=== PATIENT | male | born 1945 | race African-American/Black ===

== ENCOUNTER 2016-07-31 18:37 | Inpatient (IN) | payer MEDICARE, MEDICAID ==
[~2016-07-31] VITALS: Ht 170.2 cm; Wt 155.1 kg
[~2016-07-31 18:37] MED LIST: ALLOPURINOL300 M1 ORAL; AMOXICILLI200 MG/5 M PO; ASPIR 8181 MG ORAL; ATORVASTATIN CA40 MG ORAL; DUONEB 0.5-3(2.53 ML HHN; DuoNeb 0.5-3(2.5)mg/3ml neb ONE; FUROSEMIDE80 M1 ORAL; HEPARIN SO5000 UNIT2 SUBQ; LISINOPRIL20 MG ORAL; METHADONE HCL10 MG ORAL; METHADONE10 MG/1 M1 PO; MUCINEX600 MG ORAL; NORCO 5-325 TA1 EACH ORAL; OMEPRAZOLE20 M3 ORAL; PREDNISONE20 MG ORAL; PROTONIX40 M1 IVP; SYMBICORT 1601 PUFFS INH
[2016-07-31] MEDS ORDERED: Ipratropium 0.02% Inh Soln 2.5ml UD HHN ONE (19:00)
[2016-07-31] MEDS ORDERED: Albuterol ud Inhalation HHN ONE (19:00)
--- NOTE | 2016-07-31 19:26 | Emergency Room Report ---
History of Present Illness General Chief Complaint: Upper Respiratory Illness Source: Patient Present Illness HPI Patient reports that he was at the [place] last week Patient was given a five-day course of antibiotics and bleeding treatment Patient has continued to decompensate and feels worse increasingly short of breath Denies any chest pain at this time denies any pleurisy Patient reports having a history of COPD Denies any active smoking Denies any fevers or chills Denies any recent travel He has had increased swelling in both legs Allergies: Coded Allergies: No Known Allergies (Verified Allergy, Unknown, 06/01/07) Patient History Past Medical History: see triage record Pertinent Family History: none Reviewed Nursing Documentation: PMH: Agreed, PSxH: Agreed Nursing Documentation-PMH Past Medical History: No History, Except For Hx Hypertension: Yes Hx Pacemaker: No Hx Asthma: Yes Hx COPD: Yes Hx Diabetes: Yes Hx Cancer: No Hx Gastrointestinal Problems: No Hx Dialysis: No Hx Neurological Problems: No Hx Cerebrovascular Accident: Yes - 2007 Hx Seizures: No Review of Systems All Other Systems: negative except mentioned in HPI Physical Exam Vital Signs Date Time Temp Pulse Resp B/P Pulse Ox O2 Delivery O2 Flow Rate FiO2 07/31/16 18:46 98.2 52 16 122/60 96 Room Air Sp02 EP Interpretation: reviewed, normal General Appearance: mild distress - Appears tachypneic and short of breath Head: normocephalic, atraumatic Eyes: bilateral eye EOMI, bilateral eye PERRL ENT: normal pharynx, no angioedema Neck: full range of motion, supple, thyroid normal Respiratory: crackles - And wheezing diffusely no obvious retractions however Cardiovascular #1: regular rate, rhythm, no gallop, no JVD Gastrointestinal: non tender, soft Genitourinary: no CVA tenderness Musculoskeletal: normal inspection Neurologic: alert, oriented x3, responsive Skin: other - Two out of four pitting edema bilateral lower extremity Medical Decision Making Diagnostic Impression: Primary Impression: COPD exacerbation ER Course Patient is a fairly complex patient with multiple differential to consideration including but not limited to cardiac cardiopulmonary and vascular emergencies Patient's lung sounds continued to improve with respiratory treatments Patient also shows clinical signs of fluid overload was provided with Lasix X-ray shows some congestion Patient has improved however remains in need of oxygen and treatment and was admitted for further care Labs Test 07/31/16 19:40 White Blood Count 9.0 K/UL (4.8-10.8) Red Blood Count 4.66 M/UL (4.70-6.10) Hemoglobin 13.5 G/DL (14.2-18.0) Hematocrit 41.2 % (42.0-52.0) Mean Corpuscular Volume 88 FL (80-99) Mean Corpuscular Hemoglobin 28.9 PG (27.0-31.0) Mean Corpuscular Hemoglobin Concent 32.7 G/DL (32.0-36.0) Red Cell Distribution Width 13.9 % (11.6-14.8) Platelet Count 129 K/UL (150-450) Mean Platelet Volume 10.7 FL (6.5-10.1) Neutrophils (%) (Auto) 60.4 % (45.0-75.0) Lymphocytes (%) (Auto) 28.0 % (20.0-45.0) Monocytes (%) (Auto) 8.2 % (1.0-10.0) Eosinophils (%) (Auto) 2.3 % (0.0-3.0) Basophils (%) (Auto) 1.0 % (0.0-2.0) Sodium Level 141 mEQ/L (135-145) Potassium Level 3.7 mEQ/L (3.4-4.9) Chloride Level 98 mEQ/L (98-107) Carbon Dioxide Level 28 mEQ/L (20-30) Anion Gap 15 (5-15) Blood Urea Nitrogen 21 mg/dL (7-23) Creatinine 1.6 mg/dL (0.7-1.2) Estimat Glomerular Filtration Rate 52.0 mL/min (>60) Glucose Level 94 mg/dL (74-106) Lactic Acid Level 1.30 mmol/L (0.66-2.22) Calcium Level 9.3 mg/dL (8.6-10.2) Total Bilirubin 0.7 mg/dL (0.0-1.2) Aspartate Amino Transf (AST/SGOT) 31 U/L (5-40) Alanine Aminotransferase (ALT/SGPT) 16 U/L (3-41) Alkaline Phosphatase 70 U/L (40-129) Total Creatine Kinase 783 U/L (38-174) Creatine Kinase MB 4.4 ng/mL (< 6.7) Creatine Kinase MB Relative Index 0.5 Troponin I < 0.30 ng/mL (<=0.30) Pro-B-Type Natriuretic Peptide 168 pg/mL (0-125) Total Protein 6.6 g/dL (6.6-8.7) Albumin 3.7 g/dL (3.5-5.2) Globulin 2.9 g/dL Albumin/Globulin Ratio 1.2 (1.0-2.7) EKG Diagnostic Results Rate: normal Rhythm: NSR ST Segments: other - rbbb Rhythm Strip Diag. Results EP Interpretation: yes Rate: 66 Rhythm: NSR, no PVC's, no ectopy Chest X-Ray Diagnostic Results EP Interpretation: Yes Findings: no consolidation, no pneumothorax, other - Cardiomegaly, left lower lobe haziness Number of Views: 1 Last Vital Signs Date Time Temp Pulse Resp B/P Pulse Ox O2 Delivery O2 Flow Rate FiO2 07/31/16 18:46 98.2 52 16 122/60 96 Room Air Status: improved Disposition: ADMITTED INPATIENT Condition: Serious KYREE LLANES D.O. Jul 31, 2016 19:26
[2016-07-31 19:57] LABS: EOSINOPHILS % (AUTO) 2.3 % (0.0-3.0); MEAN CORPUSCULAR HEMOGLOBIN 28.9 PG (27.0-31.0); MEAN CORPUSCULAR HGB CONC 32.7 G/DL (32.0-36.0); MEAN CORPUSCULAR VOLUME 88 FL (80-99); MEAN PLATELET VOLUME 10.7 FL (6.5-10.1); MONOCYTES % (AUTO) 8.2 % (1.0-10.0); NEUTROPHILS % (AUTO) 60.4 % (45.0-75.0); PLATELET COUNT 129 K/UL (150-450); RED BLOOD COUNT 4.66 M/UL (4.70-6.10); RED CELL DISTRIBUTION WIDTH 13.9 % (11.6-14.8)
[2016-07-31] MEDS ORDERED: Solu-MEDROL 125mg Inj IVP ONE (20:00)
[2016-07-31] MEDS: Albuterol ud Inhalation HHN SCH ×3 (20:15→23:51)
[2016-07-31 20:23] LABS: TROPONIN I < 0.30 ng/mL (<=0.30)
[2016-07-31 20:26] LABS: ALBUMIN/GLOBULIN RATIO 1.2 (1.0-2.7); CALCIUM 9.3 mg/dL (8.6-10.2); CREATININE 1.6 mg/dL (0.7-1.2); POTASSIUM 3.7 mEQ/L (3.4-4.9); TOTAL PROTEIN 6.6 g/dL (6.6-8.7)
[2016-07-31 20:37] LABS: CKMB 4.4 ng/mL (< 6.7)
[2016-07-31 22:51] VITALS: BP 128/74
[2016-08-01] VITALS (7 sets, daily range): BP systolic 105–143; BP diastolic 46–81
[2016-08-01] MEDS ORDERED: GLIPIZIDE5 MG ORAL (02:20)
[2016-08-01] MEDS ORDERED: ISOSORBIDE DINI30 MG ORAL (02:20)
[2016-08-01] MEDS ORDERED: CARVEDILOL25 MG ORAL (02:20)
[2016-08-01] MEDS ORDERED: LYRICA75 M1 ORAL (02:24)
[2016-08-01] MEDS: DuoNeb 0.5-3(2.5)mg/3ml neb HHN SCH ×4 (03:36→19:45)
[2016-08-01] MEDS: GlipiZIDE 5mg tab ORAL SCH (06:26)
[2016-08-01] MEDS: NovoLOG Insulin Flexpen SUBQ SCH ×4 (06:27→20:53)
[2016-08-01] MEDS: Solu-MEDROL 125mg Inj IVP SCH ×2 (08:42→20:41)
[2016-08-01] MEDS: Lisinopril 10mg tab ORAL SCH (08:42)
[2016-08-01] MEDS: Furosemide 40mg tab ORAL SCH ×3 (08:43→17:28)
[2016-08-01] MEDS ORDERED: Carvedilol 25mg Tab ORAL SCH (09:00)
--- NOTE | 2016-08-01 10:29 | History & Physical ---
History and Physical History & Physicial HP dictated # [id number] PAOLA GONZALES Aug 01, 2016 10:29
--- NOTE | 2016-08-01 11:13 | Diagnostic Imaging Report ---
Indication: SOB Technique: One view of the chest Comparison: 01/19/2015 Findings: There is left lateral basilar pleural fluid versus thickening. Hazy opacity at the left lung base is likely related to such, although there may be some parenchymal consolidation as well. Left upper lung, right lung and right pleural space appear clear. The heart size is upper limits of normal. Previously demonstrated endotracheal tube has been removed. There are median sternotomy sutures Impression: Left lateral basilar pleural fluid versus thickening Cannot rule out parenchymal opacity of the left lung base Other findings as noted This agrees with the preliminary interpretation provided by the emergency room physician
[2016-08-01] MEDS: Albuterol ud Inhalation HHN SCH ×2 (11:41→11:42)
[2016-08-01] MEDS: guaiFENesin 100mg/5ml Liq ud ORAL PRN ×2 (14:12→18:47)
[2016-08-01] MEDS ORDERED: guaiFENesin 100mg/5ml Liq ud ORAL PRN (14:30)
--- NOTE | 2016-08-01 16:32 | Cardiac Electrophysiology PN ---
Subjective Subjective 1. SOB could be due to PNA 2. Hx of Nonsustained ventricular tachycardia. 3. Coronary artery disease with history of coronary artery bypass graft. 4. Cardiomyopathy, ejection fraction of 45% to 50% 5. 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 6. History of Respiratory failure. Extubated in 2014. 7. Severe chronic obstructive pulmonary disease. 8. Renal failure. [id number]. WINSTON RN Objective Last 24 Hour Vital Signs Date Time Temp Pulse Resp B/P Pulse Ox O2 Delivery O2 Flow Rate FiO2 08/01/16 13:53 53 18 100 Nasal Cannula 40 08/01/16 13:46 49 18 98 Nasal Cannula 5.0 08/01/16 11:43 47 08/01/16 11:28 97.7 52 23 135/81 99 Bi-pap 40 08/01/16 08:44 58 143/68 08/01/16 08:42 143/68 08/01/16 08:06 59 08/01/16 08:03 96.3 50 20 143/68 99 Bi-pap 40 08/01/16 07:52 56 19 100 Bi-pap 40 08/01/16 07:42 50 18 98 Nasal Cannula 5.0 08/01/16 04:00 46 08/01/16 04:00 97.6 45 20 134/67 100 Bi-pap 08/01/16 03:40 58 21 100 Bi-pap 40 08/01/16 03:39 43 20 98 Bi-pap 40 08/01/16 03:16 43 20 98 Facial 40 08/01/16 02:15 98.3 62 19 120/60 95 Room Air 21 08/01/16 01:45 52 08/01/16 01:30 97.0 54 20 141/57 95 Room Air 08/01/16 00:51 98.3 62 19 120/60 95 Room Air 07/31/16 23:13 55 29 Room Air 21 07/31/16 22:51 98.1 55 29 128/74 100 Room Air 21 07/31/16 21:10 70 20 100 Room Air 21 07/31/16 21:00 66 20 98 Room Air 21 07/31/16 19:37 66 20 99 Room Air 21 07/31/16 19:20 53 20 98 Room Air 21 07/31/16 19:20 53 20 Room Air 21 07/31/16 18:46 98.2 52 16 122/60 96 Room Air Intake and Output 07/31/16 08/01/16 19:00 07:00 Intake Total 120 ml Output Total 2175 ml Balance -2055 ml Intake Oral 120 ml Output Urine Total 2175 ml # Voids 2 Laboratory Tests Test 07/31/16 19:40 White Blood Count 9.0 K/UL (4.8-10.8) Red Blood Count 4.66 M/UL (4.70-6.10) L Hemoglobin 13.5 G/DL (14.2-18.0) L Hematocrit 41.2 % (42.0-52.0) L Mean Corpuscular Volume 88 FL (80-99) Mean Corpuscular Hemoglobin 28.9 PG (27.0-31.0) Mean Corpuscular Hemoglobin Concent 32.7 G/DL (32.0-36.0) Red Cell Distribution Width 13.9 % (11.6-14.8) Platelet Count 129 K/UL (150-450) L Mean Platelet Volume 10.7 FL (6.5-10.1) H Neutrophils (%) (Auto) 60.4 % (45.0-75.0) Lymphocytes (%) (Auto) 28.0 % (20.0-45.0) Monocytes (%) (Auto) 8.2 % (1.0-10.0) Eosinophils (%) (Auto) 2.3 % (0.0-3.0) Basophils (%) (Auto) 1.0 % (0.0-2.0) Sodium Level 141 mEQ/L (135-145) Potassium Level 3.7 mEQ/L (3.4-4.9) Chloride Level 98 mEQ/L (98-107) Carbon Dioxide Level 28 mEQ/L (20-30) Anion Gap 15 (5-15) Blood Urea Nitrogen 21 mg/dL (7-23) Creatinine 1.6 mg/dL (0.7-1.2) H Estimat Glomerular Filtration Rate 52.0 mL/min (>60) Glucose Level 94 mg/dL (74-106) Lactic Acid Level 1.30 mmol/L (0.66-2.22) Calcium Level 9.3 mg/dL (8.6-10.2) Total Bilirubin 0.7 mg/dL (0.0-1.2) Aspartate Amino Transf (AST/SGOT) 31 U/L (5-40) Alanine Aminotransferase (ALT/SGPT) 16 U/L (3-41) Alkaline Phosphatase 70 U/L (40-129) Total Creatine Kinase 783 U/L (38-174) H Creatine Kinase MB 4.4 ng/mL (< 6.7) Creatine Kinase MB Relative Index 0.5 Troponin I < 0.30 ng/mL (<=0.30) Pro-B-Type Natriuretic Peptide 168 pg/mL (0-125) H Total Protein 6.6 g/dL (6.6-8.7) Albumin 3.7 g/dL (3.5-5.2) Globulin 2.9 g/dL Albumin/Globulin Ratio 1.2 (1.0-2.7) RODGER MEJIA Aug 01, 2016 16:32
[2016-08-01] MEDS: Aspirin EC 81mg tab ORAL SCH (17:28)
--- NOTE | 2016-08-01 18:15 | Consultation ---
Consult Note Assessment/Plan dict 1. Hypercapnic respiratory failure 2. Possible chronic obstructive pulmonary disease 3. Obesity hypoventilation syndrome and sleep apnea 4. 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 Morbid obesity. 7. CAD S/P CABG 8. CHF with a component of ADHF 9. H/O prior CVA with L sided weakness BiPAP steroids abx O2 lose weight dc statin LANDEN MEAD Aug 01, 2016 18:14
--- NOTE | 2016-08-01 19:22 | History and Physical Report ---
DATE OF ADMISSION: 07/31/2016 CHIEF COMPLAINT: Shortness of breath. HISTORY OF PRESENT ILLNESS: This is a 71-year-old morbidly obese male with history of COPD, who has been short of breath for the past week. The patient went to [place] and was given some breathing treatment as an outpatient as well as antibiotics, however, he is not getting better. He is complaining of dry cough and increasing short of breath. He was not taking oxygen at home. Finally, he came to the emergency room. He was diagnosed with COPD exacerbation and was admitted. PAST MEDICAL HISTORY: History of coronary artery disease, COPD, hypertension and diabetes mellitus. MEDICATIONS: Reviewed in the EMR. ALLERGIES: No known drug allergies. SOCIAL HISTORY: The patient has a history of heroin addiction in the past. No history of smoking or alcohol abuse. REVIEW OF SYSTEMS: Noncontributory. PHYSICAL EXAMINATION: GENERAL: The patient is a morbidly obese male. He is on BiPAP. VITAL SIGNS: Blood pressure 122/60, pulse 52, temperature 98.2 degrees, and respiratory is 16. HEENT: [place] conjunctivae. Anicteric sclerae. NECK: Supple. LUNGS: Coarse breath sound bilaterally. HEART: S1 and S2 without murmurs or rubs. ABDOMEN: Soft and nontender. EXTREMITIES: No cyanosis or edema. LABORATORY AND DIAGNOSTIC DATA: His CBC shows a WBC of 9000, hematocrit is 41.2, hemoglobin is 13.5, and platelet is 129,000. Chemistry panel shows a serum sodium of 141, potassium 3.7, chloride 98, BUN is 21, and creatinine 1.6. ASSESSMENT: This is a 71-year-old male who was admitted with chronic obstructive pulmonary disease exacerbation. He has history of diabetes, hyperlipidemia and hypertension. PLAN: The patient will be on bronchodilators, BiPAP, intravenous steroids and antibiotics. The patient will be seen by the Pulmonary as well as customer service advisor and adjustments will be made in the patient's regimen. Jose Alberto Cruz M.D. DR: GORDON JOB#: [id number] CC: JERONIMO
[2016-08-01] MEDS: Carvedilol 12.5mg tab ORAL SCH (20:41)
[2016-08-01] MEDS ORDERED: Atorvastatin 80mg tab ORAL SCH (21:00)
[2016-08-02] VITALS: BP 135/71
[2016-08-02] MEDS: DuoNeb 0.5-3(2.5)mg/3ml neb HHN SCH ×4 (01:08→19:52)
--- NOTE | 2016-08-02 01:08 | Consultation ---
DATE OF CONSULTATION: 08/01/2016 PULMONARY CONSULTATION CONSULTING PHYSICIAN: Beto Ramos M.D. HISTORY OF PRESENT ILLNESS: The patient is a very pleasant 71-year-old man who comes to the hospital because of increasing shortness of breath and cough. He states that he has never smoked cigarettes and has never had asthma. He is not aware of any diagnosis of COPD. I reviewed his records, and he was hospitalized here for respiratory failure attributed to COPD about two years ago. There was also a component of narcotic abuse with methadone and heroin as well as obesity hypoventilation syndrome and sleep apnea. The patient states that he is not producing any sputum. He has cough and shortness of breath. He has no high fever. PAST MEDICAL HISTORY: Morbid obesity, coronary artery disease with bypass surgery, congestive heart failure, stroke with left-sided weakness, and opiate addiction. ALLERGIES: None. MEDICATIONS: Reviewed. REVIEW OF SYSTEMS: Otherwise unremarkable. He is unable to ambulate much due to his obesity. His weight is at the maximum that it has ever been at 345 pounds by his report. PHYSICAL EXAMINATION: GENERAL: The patient is morbidly obese. He is lying in bed, eating his supper. He is not in distress, but is coughing frequently. HEENT: The head is normocephalic. NECK: The neck veins cannot be visualized. CHEST: He has decreased air entry and a few rales. CARDIAC: Rhythm is regular. ABDOMEN: Soft and nontender. EXTREMITIES: No clubbing or cyanosis. 2+ edema is noted. LABORATORY STUDIES: Notable for elevated CPK and bicarbonate. IMPRESSION: 1. Hypercapnic respiratory failure. Blood gas is pending. 2. Possible chronic obstructive pulmonary disease, doubt. 3. Obesity hypoventilation and sleep apnea. 4. History of intravenous drug use. 5. 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 6. Morbid obesity. 7. Coronary artery disease, status post bypass surgery. 8. Congestive heart failure. 9. History of stroke. PLAN: The patient will be treated with BiPAP, steroids, antibiotics, and oxygen. I advised him that he needs to lose weight in order to relieve the strain on his respiratory system. We will discontinue his atorvastatin. The case was discussed today with Dr. Cruz. Thank you for asking me to see in consultation. Beto Ramos M.D. DR: MAC JOB#: [id number] CC: Jose Alberto Cruz M.D.; Fax#: [phone]
[2016-08-02 02:01] LABS: ABG ALLEN TEST POSITIVE; ABG BASE EXCESS 9.3; ABG PCO2 52.7 mmHg (35.0-45.0)
[2016-08-02 04:00] VITALS: BP 151/97
[2016-08-02] MEDS: GlipiZIDE 5mg tab ORAL SCH (06:15)
[2016-08-02] MEDS: NovoLOG Insulin Flexpen SUBQ SCH ×4 (06:16→20:31)
[2016-08-02 08:15] LABS: TROPONIN I < 0.30 ng/mL (<=0.30)
[2016-08-02 08:23] LABS: THYROID STIMULATING HORMONE 0.3 uIU/mL (0.300-4.500)
[2016-08-02] MEDS: Solu-MEDROL 125mg Inj IVP SCH ×2 (08:26→20:27)
[2016-08-02] MEDS: Carvedilol 12.5mg tab ORAL SCH ×2 (08:27→20:29)
[2016-08-02] MEDS: Aspirin EC 81mg tab ORAL SCH (08:27)
[2016-08-02] MEDS: Furosemide 40mg tab ORAL SCH ×3 (08:27→17:15)
[2016-08-02] MEDS: Imdur 30mg tab ORAL SCH (08:27)
[2016-08-02] MEDS: Lisinopril 10mg tab ORAL SCH (08:27)
[2016-08-02 08:48] VITALS: BP 133/48
--- NOTE | 2016-08-02 11:26 | Cardiology Report ---
APPROVED REPORT EKG Measurement Heart [id number] MO [id number] Sinus bradycardia with occasional premature ventricular complexes Right bundle branch block Abnormal ECG
--- NOTE | 2016-08-02 11:27 | Cardiology Report ---
APPROVED REPORT EKG Measurement Heart [id number] HI 178P [id number] Sinus bradycardia Right bundle branch block Abnormal ECG
--- NOTE | 2016-08-02 11:32 | Pulmonology Progress Note ---
Assessment/Plan Assessment/Plan 1. Hypercapnic respiratory failure. PCO2 52 2. Possible chronic obstructive pulmonary disease, doubt. 3. Obesity hypoventilation and sleep apnea. 4. History of intravenous drug use. 5. 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 6. Morbid obesity. 7. Coronary artery disease, status post bypass surgery. 8. Congestive heart failure. 9. History of stroke. continue BiPAP steroids abx cardiology following Subjective ROS Limited/Unobtainable: Yes Respiratory: Reports: shortness of breath Allergies: Coded Allergies: No Known Allergies (Verified Allergy, Unknown, 06/01/07) Objective Last 24 Hour Vital Signs Date Time Temp Pulse Resp B/P Pulse Ox O2 Delivery O2 Flow Rate FiO2 08/02/16 10:53 54 17 98 Facial 08/02/16 08:59 49 15 97 Facial 08/02/16 08:48 97.7 49 24 133/48 97 Bi-pap 08/02/16 08:27 56 133/48 08/02/16 08:27 133/48 08/02/16 08:27 133/48 08/02/16 07:12 50 19 100 Bi-pap 40 08/02/16 07:02 48 23 97 Bi-pap 40 08/02/16 07:02 50 17 98 Facial 08/02/16 04:41 50 28 98 Facial 08/02/16 04:00 98.1 60 20 151/97 96 Bi-pap 08/02/16 04:00 56 08/02/16 03:27 48 27 97 Facial 08/02/16 01:16 50 19 100 Bi-pap 40 08/02/16 01:08 48 23 98 Facial 08/02/16 01:07 48 23 97 Bi-pap 40 08/02/16 00:00 97.5 56 20 135/71 97 Room Air 08/02/16 00:00 50 08/01/16 23:25 52 18 98 Facial 08/01/16 21:38 56 29 98 Facial 08/01/16 20:41 66 105/57 08/01/16 20:08 66 24 97 3.0 32 08/01/16 20:02 67 22 96 Nasal Cannula 3.0 32 08/01/16 20:00 98.8 94 20 125/46 96 Nasal Cannula 5.0 40 08/01/16 19:47 32 08/01/16 19:47 64 24 97 Nasal Cannula 3.0 32 3/20/17 16:00 97.5 54 20 105/57 98 Nasal Cannula 5.0 08/01/16 13:53 53 18 100 Nasal Cannula 40 08/01/16 13:46 49 18 98 Nasal Cannula 5.0 08/01/16 11:43 47 Intake and Output 08/01/16 08/02/16 19:00 07:00 Intake Total 790 ml 240 ml Output Total 800 ml Balance -10 ml 240 ml Intake Oral 790 ml 240 ml Output Urine Total 800 ml # Voids 1 Objective morbidly obese General Appearance: no acute distress Respiratory/Chest: decreased breath sounds Cardiovascular: normal rate Extremities: other - edema 1+ Microbiology Date/Time Source Procedure Growth Status 07/31/16 19:40 Blood Blood Culture - Preliminary NO GROWTH AFTER 24 HOURS Resulted 07/31/16 19:25 Blood Blood Culture - Preliminary NO GROWTH AFTER 24 HOURS Resulted Laboratory Tests 08/01/16 16:15: D-Dimer 813H 08/01/16 18:15: Arterial Blood pH 7.440, Arterial Blood Partial Pressure CO2 52.7H, Arterial Blood Partial Pressure O2 131.5H, Arterial Blood HCO3 35.3H, Arterial Blood Oxygen Saturation 98.2H, Arterial Blood Base Excess 9.3, Jonas Test Positive 08/02/16 07:29: Troponin I < 0.30, Pro-B-Type Natriuretic Peptide 230H, Thyroid Stimulating Hormone (TSH) 0.300, Free Thyroxine 1.55 Current Medications Medications (Trade) Dose Ordered Sig/Jossy Route PRN Reason Start Time Stop Time Status Last Admin Dose Admin Albuterol/ Ipratropium (DuoNeb 0.5-3(2.5)mg/3ml) 3 ml Q6HRT HHN 08/01/16 03:30 08/06/16 03:29 08/02/16 07:02 Aspirin (Ecotrin) 81 mg DAILY ORAL 08/01/16 17:00 08/31/16 16:59 08/02/16 08:27 Carvedilol (Coreg) 12.5 mg EVERY 12 HOURS ORAL 08/01/16 21:00 08/31/16 20:59 08/02/16 08:27 Dextrose (Dextrose 50%) STAT PRN IV Hypoglycemia 08/01/16 03:30 08/31/16 03:29 Furosemide (Lasix) 40 mg TID ORAL 08/01/16 09:00 08/31/16 08:59 08/02/16 08:27 Glipizide (Glucotrol) 2.5 mg ACBREAKFAST ORAL 08/01/16 06:30 08/31/16 06:29 08/02/16 06:15 Guaifenesin (Robitussin) 200 mg Q4H PRN ORAL For Cough 08/01/16 14:30 08/31/16 14:29 08/01/16 18:47 Insulin Aspart (NovoLOG) BEFORE MEALS AND HS SUBQ 08/01/16 06:30 08/31/16 06:29 08/02/16 06:16 Isosorbide Mononitrate (Imdur) 60 mg DAILY ORAL 08/02/16 09:00 09/01/16 08:59 08/02/16 08:27 Lisinopril (Zestril) 10 mg DAILY ORAL 08/01/16 09:00 08/31/16 08:59 08/02/16 08:27 Methylprednisolone Sodium Succinate (Solu-MEDROL) 60 mg EVERY 12 HOURS IVP 08/01/16 09:00 08/31/16 08:59 08/02/16 08:26 LANDEN MEAD Aug 02, 2016 11:32
[2016-08-02 11:39] VITALS: BP 122/59
--- NOTE | 2016-08-02 12:04 | Cardiology Report ---
APPROVED REPORT EXAM: Two-dimensional and M-mode echocardiogram with Doppler and color Doppler. INDICATION Congestive Heart Failure M-Mode DIMENSIONS IVSd1.9 (0.7-1.1cm)Left Atrium (MM)3.9 (1.6-4.0cm) LVDd5.6 (3.5-5.6cm)Aortic Root3.3 (2.0-3.7cm) PWd1.1 (0.7-1.1cm)Aortic Cusp Exc.2.0 (1.5-2.0cm) LVDs3.9 (2.5-4.0cm) PWs1.5 cm Technically difficult study due to poor acoustic windows.very poor endocardial definition Normal left ventricular chamber size, systolic function and wall motion. Left ventricular ejection fraction estimated to be 60-65%. No evidence of pericardial fat or effusion. All other cardiac chamber sizes are within normal limits. Focal aortic valve sclerosis with adequate cusp excursion Thickened mitral valve leaflets with normal excursion. Mitral annulus and aortic root calcification. Pulmonic valve not well visualized. Normal tricuspid valve structure. IVC is normal in size with physiologic collapse. not able to visulaize the pacing wire as the surface ekg indicates pacing artifact A color flow and spectral Doppler study was performed and revealed: No aortic regurgitation. No mitral regurgitation. Mitral inflow velocities normal ventricular diastolic dysfunction. Mild tricuspid regurgitation. Tricuspid systolic velocities suggests peak right ventricular systolic pressure of 16 mmHg
--- NOTE | 2016-08-02 15:26 | Cardiac Electrophysiology PN ---
Subjective Subjective 1. SOB due to COPD and PNA on Abx. 2. Hx of Nonsustained ventricular tachycardia. On Coreg 3. Coronary artery disease with history of coronary artery bypass graft.Aspirin, Coreg and Imdur. 4. Cardiomyopathy, ejection fraction of 45% to 50% 5. Nazario cardia and Right bundle and left posterior fascicular block. 6. History of Respiratory failure. Extubated in 2014. 7. Severe chronic obstructive pulmonary disease.On BIPAP 8. Renal failure. WINSTON RN and sunilalexis Objective Last 24 Hour Vital Signs Date Time Temp Pulse Resp B/P Pulse Ox O2 Delivery O2 Flow Rate FiO2 08/02/16 13:21 54 24 98 Facial 30 08/02/16 13:20 54 22 100 Bi-pap 30 08/02/16 13:10 51 25 97 Bi-pap 30 08/02/16 11:41 49 08/02/16 11:39 97.0 51 22 122/59 98 Bi-pap 08/02/16 10:53 54 17 98 Facial 08/02/16 08:59 49 15 97 Facial 08/02/16 08:48 97.7 49 24 133/48 97 Bi-pap 08/02/16 08:27 56 133/48 08/02/16 08:27 133/48 08/02/16 08:27 133/48 08/02/16 07:37 46 08/02/16 07:12 50 19 100 Bi-pap 40 08/02/16 07:02 48 23 97 Bi-pap 40 08/02/16 07:02 50 17 98 Facial 08/02/16 04:41 50 28 98 Facial 08/02/16 04:00 98.1 60 20 151/97 96 Bi-pap 08/02/16 04:00 56 08/02/16 03:27 48 27 97 Facial 08/02/16 01:16 50 19 100 Bi-pap 40 08/02/16 01:08 48 23 98 Facial 08/02/16 01:07 48 23 97 Bi-pap 40 08/02/16 00:00 97.5 56 20 135/71 97 Room Air 08/02/16 00:00 50 08/01/16 23:25 52 18 98 Facial 08/01/16 21:38 56 29 98 Facial 08/01/16 20:41 66 105/57 08/01/16 20:08 66 24 97 3.0 32 08/01/16 20:02 67 22 96 Nasal Cannula 3.0 32 08/01/16 20:00 98.8 94 20 125/46 96 Nasal Cannula 5.0 40 08/01/16 19:47 32 08/01/16 19:47 64 24 97 Nasal Cannula 3.0 32 08/01/16 16:00 97.5 54 20 105/57 98 Nasal Cannula 5.0 Intake and Output 08/01/16 08/02/16 19:00 07:00 Intake Total 790 ml 240 ml Output Total 800 ml Balance -10 ml 240 ml Intake Oral 790 ml 240 ml Output Urine Total 800 ml # Voids 1 Laboratory Tests Test 08/01/16 16:15 08/01/16 18:15 08/02/16 07:29 D-Dimer 813 ng/mL (<500) H Arterial Blood pH 7.440 (7.350-7.450) Arterial Blood Partial Pressure CO2 52.7 mmHg (35.0-45.0) H Arterial Blood Partial Pressure O2 131.5 mmHg (75.0-100.0) H Arterial Blood HCO3 35.3 mmol/L (22.0-26.0) H Arterial Blood Oxygen Saturation 98.2 % (92.0-98.0) H Arterial Blood Base Excess 9.3 Jonas Test Positive Troponin I < 0.30 ng/mL (<=0.30) Pro-B-Type Natriuretic Peptide 230 pg/mL (0-125) H Thyroid Stimulating Hormone (TSH) 0.300 uIU/mL (0.300-4.500) Free Thyroxine 1.55 ng/dL (0.86-1.85) Microbiology Date/Time Source Procedure Growth Status 07/31/16 19:40 Blood Blood Culture - Preliminary NO GROWTH AFTER 24 HOURS Resulted 07/31/16 19:25 Blood Blood Culture - Preliminary NO GROWTH AFTER 24 HOURS Resulted RODGER MEJIA Aug 02, 2016 15:26
--- NOTE | 2016-08-02 15:48 | General Progress Note ---
Assessment/Plan Problem List: (1) COPD exacerbation ICD Codes: J44.1 - Chronic obstructive pulmonary disease with (acute) exacerbation SNOMED: 600226285 (2) CAD (coronary artery disease) ICD Codes: I25.10 - CAD (coronary artery disease) SNOMED: 37740683 (3) Cardiomyopathy ICD Codes: I42.9 - Cardiomyopathy SNOMED: 25527916 Assessment/Plan Bronchodilators diuresis cont BIPAP Discussed with pt and daughter Subjective Allergies: Coded Allergies: No Known Allergies (Verified Allergy, Unknown, 06/01/07) Subjective On BIPAP Objective Last 24 Hour Vital Signs Date Time Temp Pulse Resp B/P Pulse Ox O2 Delivery O2 Flow Rate FiO2 08/02/16 15:26 48 17 98 Facial 30 08/02/16 13:21 54 24 98 Facial 30 08/02/16 13:20 54 22 100 Bi-pap 30 08/02/16 13:10 51 25 97 Bi-pap 30 08/02/16 11:41 49 08/02/16 11:39 97.0 51 22 122/59 98 Bi-pap 08/02/16 10:53 54 17 98 Facial 08/02/16 08:59 49 15 97 Facial 08/02/16 08:48 97.7 49 24 133/48 97 Bi-pap 08/02/16 08:27 56 133/48 08/02/16 08:27 133/48 08/02/16 08:27 133/48 08/02/16 07:37 46 08/02/16 07:12 50 19 100 Bi-pap 40 08/02/16 07:02 48 23 97 Bi-pap 40 08/02/16 07:02 50 17 98 Facial 08/02/16 04:41 50 28 98 Facial 08/02/16 04:00 98.1 60 20 151/97 96 Bi-pap 08/02/16 04:00 56 08/02/16 03:27 48 27 97 Facial 08/02/16 01:16 50 19 100 Bi-pap 40 08/02/16 01:08 48 23 98 Facial 08/02/16 01:07 48 23 97 Bi-pap 40 08/02/16 00:00 97.5 56 20 135/71 97 Room Air 08/02/16 00:00 50 08/01/16 23:25 52 18 98 Facial 08/01/16 21:38 56 29 98 Facial 08/01/16 20:41 66 105/57 08/01/16 20:08 66 24 97 3.0 32 08/01/16 20:02 67 22 96 Nasal Cannula 3.0 32 08/01/16 20:00 98.8 94 20 125/46 96 Nasal Cannula 5.0 40 08/01/16 19:47 32 08/01/16 19:47 64 24 97 Nasal Cannula 3.0 32 08/01/16 16:00 97.5 54 20 105/57 98 Nasal Cannula 5.0 Intake and Output 08/01/16 08/02/16 19:00 07:00 Intake Total 790 ml 240 ml Output Total 800 ml Balance -10 ml 240 ml Intake Oral 790 ml 240 ml Output Urine Total 800 ml # Voids 1 Laboratory Tests 08/01/16 16:15: D-Dimer 813H 08/01/16 18:15: Arterial Blood pH 7.440, Arterial Blood Partial Pressure CO2 52.7H, Arterial Blood Partial Pressure O2 131.5H, Arterial Blood HCO3 35.3H, Arterial Blood Oxygen Saturation 98.2H, Arterial Blood Base Excess 9.3, Jonas Test Positive 08/02/16 07:29: Troponin I < 0.30, Pro-B-Type Natriuretic Peptide 230H, Thyroid Stimulating Hormone (TSH) 0.300, Free Thyroxine 1.55 Height (Feet): 5 Height (Inches): 7.00 Weight (Pounds): 332 Cardiovascular: normal rate Respiratory/Chest: rhonchi - bilaterally Edema: no edema noted Generalized PAOLA GONZALES Aug 02, 2016 15:48
[2016-08-02 16:00] VITALS: BP 162/92
--- NOTE | 2016-08-02 19:29 | Consultation ---
DATE OF CONSULTATION: CARDIOLOGY CONSULTATION CONSULTING PHYSICIAN: Dereje Comer M.D. REFERRING PHYSICIAN: Jose Alberto Cruz M.D. REASON FOR CONSULTATION: Bradycardia with heart rate of 40s in a patient with a history of coronary artery bypass graft. The patient also has underlying complete right bundle-branch block. HISTORY OF PRESENT ILLNESS: The patient is a very pleasant 89-year-old gentleman with from previous admission in 01/2015. The patient has a history of hypertension and coronary artery disease with coronary artery bypass graft as well as history of right bundle-branch block in the setting of normal left ventricular systolic function. The patient also has a history of respiratory failure with severe chronic obstructive pulmonary disease and extubated in 2014. The patient also has renal failure and history of narcotic overdose. The patient presented to the emergency room with increasing shortness of breath and received of antibiotics. The patient denies any chest pain, was admitted and Cardiology consultation was obtained for further evaluation. REVIEW OF SYSTEMS: Review of systems was performed and was negative other than what was mentioned in the history of present illness. PAST MEDICAL HISTORY: 1. Hypertension. 2. Coronary artery disease. 3. History of coronary artery bypass. 4. Diabetes. 5. Right bundle-branch block. 6. Diastolic dysfunction. FAMILY HISTORY: Noncontributory. PHYSICAL EXAMINATION: VITAL SIGNS: Blood pressure 120/60, pulse 52, respirations 18, and he is afebrile. HEENT: Head and neck shows mild jugular venous distention. LUNGS: Coarse rhonchi. CARDIOVASCULAR: Shows regular S1 and S2 with no gallop or murmur. ABDOMEN: Soft and nontender. EXTREMITIES: Have 1+ pitting edema. LABORATORY AND DIAGNOSTIC DATA: His labs showed a sodium of 141, potassium 3.7, BUN of 21, creatinine 1.3, and glucose of 94. Troponin is negative. BNP is 168. White count 9, hemoglobin 13.5, hematocrit of 41.7, and platelet count is 129,000. ASSESSMENT AND PLAN: 1. Bradycardia with heart rate in the high 40s and 50s. I will decrease the Coreg to 12.5 mg twice a day. We will watch the patient on telemetry. 2. History of coronary artery disease with prior coronary artery bypass graft. The patient has no chest pain. Add Coreg and Isordil and Lipitor, and add low-dose aspirin to his medical regimen. 3. History of mild cardiomyopathy with ejection fraction of 45%. Echocardiogram will be repeated. In the meantime, continue lisinopril, Coreg, aspirin, and Lasix. 4. Diabetes, on glipizide. 5. Right bundle-branch block. 6. Renal failure, under management by Dr. Cruz. 7. Chronic obstructive pulmonary disease, Solu-Medrol and probably would need antibiotic. Thank you very much, Dr. Cruz, for allowing me to participate in the care of this patient. Please do not hesitate to contact me for any questions regarding my evaluation. Dereje Comer M.D. DR: ANNETTE JOB#: [id number] CC:
[2016-08-02 20:00] VITALS: BP 101/57
[2016-08-02] MEDS ORDERED: Norco 5mg/325mg tab ORAL PRN (20:00)
[2016-08-02] MEDS: Norco 10mg/325mg tab ORAL PRN (20:28)
[2016-08-02] MEDS: Lyrica 25mg cap ORAL SCH (20:29)
[2016-08-03] VITALS: BP 108/55
[2016-08-03] MEDS: DuoNeb 0.5-3(2.5)mg/3ml neb HHN SCH ×4 (01:44→19:22)
[2016-08-03 04:00] VITALS: BP 114/49
[2016-08-03] MEDS: GlipiZIDE 5mg tab ORAL SCH (06:21)
[2016-08-03] MEDS: NovoLOG Insulin Flexpen SUBQ SCH ×4 (06:22→21:19)
[2016-08-03 08:05] LABS: MEAN CORPUSCULAR HEMOGLOBIN 29.7 PG (27.0-31.0); MEAN CORPUSCULAR HGB CONC 33.6 G/DL (32.0-36.0); MEAN CORPUSCULAR VOLUME 89 FL (80-99); MEAN PLATELET VOLUME 8.8 FL (6.5-10.1); PLATELET COUNT 146 K/UL (150-450); RED BLOOD COUNT 4.74 M/UL (4.70-6.10)
[2016-08-03 08:09] LABS: ALANINE AMINOTRANSFERASE 12 U/L (3-41); ANION GAP 13 (5-15); ASPARTATE AMINO TRANSFERASE 17 U/L (5-40); CALCIUM 8.9 mg/dL (8.6-10.2); CARBON DIOXIDE 31 mEQ/L (20-30); CHLORIDE 95 mEQ/L (98-107); CREATININE 1.4 mg/dL (0.7-1.2); GLOMERULAR FILTRATION RATE > 60 mL/min (>60); HEMOLYSIS 18; POTASSIUM 3.4 mEQ/L (3.4-4.9); SODIUM 139 mEQ/L (135-145); TOTAL PROTEIN 6.9 g/dL (6.6-8.7)
[2016-08-03] MEDS: Solu-MEDROL 125mg Inj IVP SCH (08:15)
[2016-08-03] MEDS: Imdur 30mg tab ORAL SCH (08:17)
[2016-08-03] MEDS: Furosemide 40mg tab ORAL SCH ×3 (08:17→17:03)
[2016-08-03] MEDS: Aspirin EC 81mg tab ORAL SCH (08:17)
[2016-08-03] MEDS: Lyrica 25mg cap ORAL SCH ×3 (08:18→17:03)
[2016-08-03] MEDS: Lisinopril 10mg tab ORAL SCH (08:18)
[2016-08-03] MEDS: Carvedilol 12.5mg tab ORAL SCH (08:19)
[2016-08-03 08:20] LABS: BILIRUBIN,DIRECT 0.2 mg/dL (0.1-0.3)
[2016-08-03] MEDS: Norco 10mg/325mg tab ORAL PRN ×2 (08:26→21:12)
[2016-08-03 08:27] VITALS: BP 114/50
[2016-08-03] MEDS: guaiFENesin 100mg/5ml Liq ud ORAL PRN ×2 (09:29→21:24)
[2016-08-03 11:21] LABS: BAND NEUTROPHILS % (MANUAL) 1 % (0-8); LYMPHOCYTES % (MANUAL) 8 % (20-45); NEUTROPHILS % (MANUAL) 88 % (45-75); TOTAL CELLS COUNTED 100
[2016-08-03 11:22] LABS: BASOPHILS % (MANUAL) 0 % (0-2); EOSINOPHILS % (MANUAL) 0 % (0-3); PLATELET ESTIMATE DECREASED; PLATELET MORPHOLOGY NORMAL
--- NOTE | 2016-08-03 11:45 | General Progress Note ---
Assessment/Plan Problem List: (1) COPD exacerbation ICD Codes: J44.1 - Chronic obstructive pulmonary disease with (acute) exacerbation SNOMED: 357332694 (2) CAD (coronary artery disease) ICD Codes: I25.10 - CAD (coronary artery disease) SNOMED: 25313426 (3) Cardiomyopathy ICD Codes: I42.9 - Cardiomyopathy SNOMED: 33827406 Assessment/Plan Bronchodilators diuresis Add Zozyn steroids Subjective Allergies: Coded Allergies: No Known Allergies (Verified Allergy, Unknown, 06/01/07) Subjective off BIPAP doing better Objective Last 24 Hour Vital Signs Date Time Temp Pulse Resp B/P Pulse Ox O2 Delivery O2 Flow Rate FiO2 08/03/16 10:31 Nasal Cannula 3.0 32 08/03/16 10:31 97 Nasal Cannula 3.0 32 08/03/16 09:17 50 22 97 Facial 30 08/03/16 08:27 97.0 64 22 114/50 97 Bi-pap 08/03/16 08:19 56 114/50 08/03/16 08:18 114/50 08/03/16 08:17 114/50 08/03/16 07:52 59 22 100 Bi-pap 30 08/03/16 07:30 57 24 97 Bi-pap 30 08/03/16 07:29 52 24 97 Facial 30 08/03/16 05:16 37 17 95 Facial 30 08/03/16 04:00 38 08/03/16 04:00 97.0 40 20 114/49 97 Bi-pap 08/03/16 03:14 46 22 94 Facial 30 08/03/16 01:42 48 20 94 Facial 30 08/03/16 01:00 39 21 100 Bi-pap 30 08/03/16 01:00 46 25 94 Bi-pap 30 08/03/16 00:00 45 08/03/16 00:00 97.0 60 20 108/55 95 Bi-pap 08/02/16 23:30 60 21 95 Facial 30 08/02/16 20:32 49 20 99 Facial 30 08/02/16 20:00 97.7 44 20 101/57 98 Bi-pap 08/02/16 20:00 42 08/02/16 19:54 46 23 100 Bi-pap 30 08/02/16 19:51 49 25 99 Facial 30 3/21/17 19:50 49 25 99 Bi-pap 30 08/02/16 16:53 48 19 98 Facial 30 08/02/16 16:00 97.5 42 22 162/92 97 Room Air 08/02/16 16:00 47 08/02/16 15:26 48 17 98 Facial 30 08/02/16 13:21 54 24 98 Facial 30 08/02/16 13:20 54 22 100 Bi-pap 30 08/02/16 13:10 51 25 97 Bi-pap 30 Intake and Output 08/02/16 08/03/16 19:00 07:00 Intake Total 360 ml 820 ml Output Total 550 ml 1800 ml Balance -190 ml -980 ml Intake Oral 360 ml 820 ml Output Urine Total 550 ml 1800 ml # Voids 1 Laboratory Tests 08/03/16 07:30: White Blood Count 16.0H, Red Blood Count 4.74, Hemoglobin 14.1L, Hematocrit 41.9L, Mean Corpuscular Volume 89, Mean Corpuscular Hemoglobin 29.7, Mean Corpuscular Hemoglobin Concent 33.6, Red Cell Distribution Width 14.0, Platelet Count 146L, Mean Platelet Volume 8.8, Neutrophils (%) (Auto) , Lymphocytes (%) ( Auto) , Monocytes (%) (Auto) , Eosinophils (%) (Auto) , Basophils (%) (Auto) , Differential Total Cells Counted 100, Neutrophils % (Manual) 88H, Lymphocytes % (Manual) 8L, Monocytes % (Manual) 3, Eosinophils % (Manual) 0, Basophils % ( Manual) 0, Band Neutrophils 1, Platelet Estimate DecreasedL, Platelet Morphology Normal, Red Blood Cell Morphology Normal, Sodium Level 139, Potassium Level 3.4, Chloride Level 95L, Carbon Dioxide Level 31H, Anion Gap 13 , Blood Urea Nitrogen 29H, Creatinine 1.4H, Estimat Glomerular Filtration Rate > 60, Glucose Level 185H, Calcium Level 8.9, Total Bilirubin 1.3H, Direct Bilirubin 0.2, Aspartate Amino Transf (AST/SGOT) 17, Alanine Aminotransferase ( ALT/SGPT) 12, Alkaline Phosphatase 62, Total Creatine Kinase 140, Total Protein 6.9, Albumin 3.5, Globulin 3.4, Albumin/Globulin Ratio 1.0 Height (Feet): 5 Height (Inches): 7.00 Weight (Pounds): 332 Cardiovascular: normal rate Respiratory/Chest: lungs clear Edema: no edema noted PAOLA Perez Aug 03, 2016 11:45
[2016-08-03 11:51] VITALS: BP 104/51
--- NOTE | 2016-08-03 12:05 | Diagnostic Imaging Report ---
Indication: Dyspnea Comparison: 07/31/16 A single view chest radiograph was obtained. Findings: Cardiomegaly and pulmonary vascular prominence noted. No definite CHF identified at this time. Sternotomy noted. Impression: Prominent vascularity without definite pulmonary edema
--- NOTE | 2016-08-03 12:19 | Pulmonology Progress Note ---
Assessment/Plan Assessment/Plan 1. Hypercapnic respiratory failure. PCO2 52 2. Possible chronic obstructive pulmonary disease, doubt. 3. Obesity hypoventilation and sleep apnea. 4. History of intravenous drug use. 5. 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 6. Morbid obesity. 7. Coronary artery disease, status post bypass surgery. 8. Congestive heart failure. 9. History of stroke. BiPAP qhs and prn steroid taper abx cardiology following mobilize Subjective Respiratory: Reports: shortness of breath Allergies: Coded Allergies: No Known Allergies (Verified Allergy, Unknown, 06/01/07) Objective Last 24 Hour Vital Signs Date Time Temp Pulse Resp B/P Pulse Ox O2 Delivery O2 Flow Rate FiO2 08/03/16 11:51 97.0 61 22 104/51 96 Nasal Cannula 3.0 08/03/16 10:31 Nasal Cannula 3.0 32 08/03/16 10:31 97 Nasal Cannula 3.0 32 08/03/16 09:17 50 22 97 Facial 30 08/03/16 08:27 97.0 64 22 114/50 97 Bi-pap 08/03/16 08:19 56 114/50 08/03/16 08:18 114/50 08/03/16 08:17 114/50 08/03/16 07:52 59 22 100 Bi-pap 30 08/03/16 07:30 57 24 97 Bi-pap 30 08/03/16 07:29 52 24 97 Facial 30 08/03/16 05:16 37 17 95 Facial 30 08/03/16 04:00 38 08/03/16 04:00 97.0 40 20 114/49 97 Bi-pap 08/03/16 03:14 46 22 94 Facial 30 08/03/16 01:42 48 20 94 Facial 30 08/03/16 01:00 39 21 100 Bi-pap 30 08/03/16 01:00 46 25 94 Bi-pap 30 08/03/16 00:00 45 08/03/16 00:00 97.0 60 20 108/55 95 Bi-pap 08/02/16 23:30 60 21 95 Facial 30 08/02/16 20:32 49 20 99 Facial 30 08/02/16 20:00 97.7 44 20 101/57 98 Bi-pap 08/02/16 20:00 42 08/02/16 19:54 46 23 100 Bi-pap 30 08/02/16 19:51 49 25 99 Facial 30 08/02/16 19:50 49 25 99 Bi-pap 30 08/02/16 16:53 48 19 98 Facial 30 08/02/16 16:00 97.5 42 22 162/92 97 Room Air 08/02/16 16:00 47 08/02/16 15:26 48 17 98 Facial 30 08/02/16 13:21 54 24 98 Facial 30 08/02/16 13:20 54 22 100 Bi-pap 30 08/02/16 13:10 51 25 97 Bi-pap 30 Intake and Output 08/02/16 08/03/16 19:00 07:00 Intake Total 360 ml 820 ml Output Total 550 ml 1800 ml Balance -190 ml -980 ml Intake Oral 360 ml 820 ml Output Urine Total 550 ml 1800 ml # Voids 1 Objective morbidly obese General Appearance: no acute distress Respiratory/Chest: lungs clear Cardiovascular: normal rate Microbiology Date/Time Source Procedure Growth Status 07/31/16 19:40 Blood Blood Culture - Preliminary NO GROWTH AFTER 48 HOURS Resulted 07/31/16 19:25 Blood Blood Culture - Preliminary NO GROWTH AFTER 48 HOURS Resulted Laboratory Tests 08/03/16 07:30: White Blood Count 16.0H, Red Blood Count 4.74, Hemoglobin 14.1L, Hematocrit 41.9L, Mean Corpuscular Volume 89, Mean Corpuscular Hemoglobin 29.7, Mean Corpuscular Hemoglobin Concent 33.6, Red Cell Distribution Width 14.0, Platelet Count 146L, Mean Platelet Volume 8.8, Neutrophils (%) (Auto) , Lymphocytes (%) ( Auto) , Monocytes (%) (Auto) , Eosinophils (%) (Auto) , Basophils (%) (Auto) , Differential Total Cells Counted 100, Neutrophils % (Manual) 88H, Lymphocytes % (Manual) 8L, Monocytes % (Manual) 3, Eosinophils % (Manual) 0, Basophils % ( Manual) 0, Band Neutrophils 1, Platelet Estimate DecreasedL, Platelet Morphology Normal, Red Blood Cell Morphology Normal, Sodium Level 139, Potassium Level 3.4, Chloride Level 95L, Carbon Dioxide Level 31H, Anion Gap 13 , Blood Urea Nitrogen 29H, Creatinine 1.4H, Estimat Glomerular Filtration Rate > 60, Glucose Level 185H, Calcium Level 8.9, Total Bilirubin 1.3H, Direct Bilirubin 0.2, Aspartate Amino Transf (AST/SGOT) 17, Alanine Aminotransferase ( ALT/SGPT) 12, Alkaline Phosphatase 62, Total Creatine Kinase 140, Total Protein 6.9, Albumin 3.5, Globulin 3.4, Albumin/Globulin Ratio 1.0 Current Medications Medications (Trade) Dose Ordered Sig/Jossy Route PRN Reason Start Time Stop Time Status Last Admin Dose Admin Acetaminophen/ Hydrocodone Bitart 1 ea 1 ea Q4H PRN ORAL Severe Pain (Pain Scale 7-10) 08/02/16 20:00 08/09/16 19:59 08/03/16 08:26 Acetaminophen/ Hydrocodone Bitart (Girard 5/325) 1 tab Q4H PRN ORAL Moderate Pain (Pain Scale 4-6) 08/02/16 20:00 08/09/16 19:59 Albuterol/ Ipratropium (DuoNeb 0.5-3(2.5)mg/3ml) 3 ml Q6HRT HHN 08/01/16 03:30 08/06/16 03:29 08/03/16 07:49 Aspirin (Ecotrin) 81 mg DAILY ORAL 08/01/16 17:00 08/31/16 16:59 08/03/16 08:17 Carvedilol (Coreg) 12.5 mg EVERY 12 HOURS ORAL 08/01/16 21:00 08/31/16 20:59 08/02/16 08:27 Dextrose (Dextrose 50%) STAT PRN IV Hypoglycemia 08/01/16 03:30 08/31/16 03:29 Furosemide (Lasix) 40 mg TID ORAL 08/01/16 09:00 08/31/16 08:59 08/03/16 08:17 Glipizide (Glucotrol) 2.5 mg ACBREAKFAST ORAL 08/01/16 06:30 08/31/16 06:29 08/03/16 06:21 Guaifenesin (Robitussin) 200 mg Q4H PRN ORAL For Cough 08/01/16 14:30 08/31/16 14:29 08/03/16 09:29 Insulin Aspart (NovoLOG) BEFORE MEALS AND HS SUBQ 08/01/16 06:30 08/31/16 06:29 08/03/16 06:22 Isosorbide Mononitrate (Imdur) 60 mg DAILY ORAL 08/02/16 09:00 09/01/16 08:59 08/03/16 08:17 Lisinopril (Zestril) 10 mg DAILY ORAL 08/01/16 09:00 08/31/16 08:59 08/03/16 08:18 Methylprednisolone Sodium Succinate (Solu-MEDROL) 60 mg EVERY 12 HOURS IVP 08/01/16 09:00 08/31/16 08:59 08/03/16 08:15 Piperacillin Sod/ Tazobactam Sod/ Dextrose (Zosyn/D5W) 110 ml @ 27.5 mls/hr EVERY 8 HOURS IVPB 08/03/16 13:00 08/08/16 12:59 Pregabalin (Lyrica) 25 mg THREE TIMES A DAY ORAL 08/02/16 21:00 09/01/16 20:59 08/03/16 08:18 LANDEN MEAD Aug 03, 2016 12:19
--- NOTE | 2016-08-03 13:19 | Diagnostic Imaging Report ---
APPROVED REPORT CPT Code: 27589 Present Symptoms Shortness of breath Comments: Technically difficult study due to vessel depth (mid-thigh and calf area). BILATERAL: Imaging reveals a patent deep venous system bilaterally. There is no evidence of thrombus within the femoral, popliteal or tibial segments. The greater saphenous veins are also within normal limits. Doppler indicates normal spontaneous flow within these segments.
[2016-08-03] MEDS: Piperacillin/Tazobactam 3.375 GM in D5W 110 ML IVPB SCH ×2 (13:31→21:10)
[2016-08-03 16:00] VITALS: BP 126/89
--- NOTE | 2016-08-03 17:29 | Cardiac Electrophysiology PN ---
Subjective Subjective 1. SOB due to COPD and PNA on Abx. 2. Nonsustained ventricular tachycardia. No recurrence on Coreg 3. Coronary artery disease with history of coronary artery bypass graft.Aspirin, Coreg and Imdur. 4. Cardiomyopathy, ejection fraction of 45% to 50% On Lasix 40 po bid 5. Nazario cardia and Right bundle and left posterior fascicular block.Decrease Coreg to 6.25 bid 6. History of Respiratory failure. Extubated in 2014. 7. Severe chronic obstructive pulmonary disease.On BIPAP 8. Renal failure. WINSTON RN Objective Last 24 Hour Vital Signs Date Time Temp Pulse Resp B/P Pulse Ox O2 Delivery O2 Flow Rate FiO2 08/03/16 16:00 98.1 58 20 126/89 98 Nasal Cannula 08/03/16 13:35 57 20 100 Nasal Cannula 3.0 32 08/03/16 13:25 53 23 96 Nasal Cannula 3.0 32 08/03/16 11:51 97.0 61 22 104/51 96 Nasal Cannula 3.0 08/03/16 11:39 50 08/03/16 10:31 Nasal Cannula 3.0 32 08/03/16 10:31 97 Nasal Cannula 3.0 32 08/03/16 09:17 50 22 97 Facial 30 08/03/16 08:27 97.0 64 22 114/50 97 Bi-pap 08/03/16 08:19 56 114/50 08/03/16 08:18 114/50 08/03/16 08:17 114/50 08/03/16 08:01 59 08/03/16 07:52 59 22 100 Bi-pap 30 08/03/16 07:30 57 24 97 Bi-pap 30 08/03/16 07:29 52 24 97 Facial 30 08/03/16 05:16 37 17 95 Facial 30 08/03/16 04:00 38 08/03/16 04:00 97.0 40 20 114/49 97 Bi-pap 08/03/16 03:14 46 22 94 Facial 30 08/03/16 01:42 48 20 94 Facial 30 08/03/16 01:00 39 21 100 Bi-pap 30 08/03/16 01:00 46 25 94 Bi-pap 30 08/03/16 00:00 45 08/03/16 00:00 97.0 60 20 108/55 95 Bi-pap 08/02/16 23:30 60 21 95 Facial 30 08/02/16 20:32 49 20 99 Facial 30 08/02/16 20:00 97.7 44 20 101/57 98 Bi-pap 08/02/16 20:00 42 08/02/16 19:54 46 23 100 Bi-pap 30 08/02/16 19:51 49 25 99 Facial 30 08/02/16 19:50 49 25 99 Bi-pap 30 Intake and Output 08/02/16 08/03/16 19:00 07:00 Intake Total 360 ml 820 ml Output Total 550 ml 1800 ml Balance -190 ml -980 ml Intake Oral 360 ml 820 ml Output Urine Total 550 ml 1800 ml # Voids 1 Laboratory Tests Test 08/03/16 07:30 White Blood Count 16.0 K/UL (4.8-10.8) H Red Blood Count 4.74 M/UL (4.70-6.10) Hemoglobin 14.1 G/DL (14.2-18.0) L Hematocrit 41.9 % (42.0-52.0) L Mean Corpuscular Volume 89 FL (80-99) Mean Corpuscular Hemoglobin 29.7 PG (27.0-31.0) Mean Corpuscular Hemoglobin Concent 33.6 G/DL (32.0-36.0) Red Cell Distribution Width 14.0 % (11.6-14.8) Platelet Count 146 K/UL (150-450) L Mean Platelet Volume 8.8 FL (6.5-10.1) Neutrophils (%) (Auto) % (45.0-75.0) Lymphocytes (%) (Auto) % (20.0-45.0) Monocytes (%) (Auto) % (1.0-10.0) Eosinophils (%) (Auto) % (0.0-3.0) Basophils (%) (Auto) % (0.0-2.0) Differential Total Cells Counted 100 Neutrophils % (Manual) 88 % (45-75) H Lymphocytes % (Manual) 8 % (20-45) L Monocytes % (Manual) 3 % (1-10) Eosinophils % (Manual) 0 % (0-3) Basophils % (Manual) 0 % (0-2) Band Neutrophils 1 % (0-8) Platelet Estimate Decreased L Platelet Morphology Normal Red Blood Cell Morphology Normal Sodium Level 139 mEQ/L (135-145) Potassium Level 3.4 mEQ/L (3.4-4.9) Chloride Level 95 mEQ/L (98-107) L Carbon Dioxide Level 31 mEQ/L (20-30) H Anion Gap 13 (5-15) Blood Urea Nitrogen 29 mg/dL (7-23) H Creatinine 1.4 mg/dL (0.7-1.2) H Estimat Glomerular Filtration Rate > 60 mL/min (>60) Glucose Level 185 mg/dL (74-106) H Calcium Level 8.9 mg/dL (8.6-10.2) Total Bilirubin 1.3 mg/dL (0.0-1.2) H Direct Bilirubin 0.2 mg/dL (0.1-0.3) Aspartate Amino Transf (AST/SGOT) 17 U/L (5-40) Alanine Aminotransferase (ALT/SGPT) 12 U/L (3-41) Alkaline Phosphatase 62 U/L (40-129) Total Creatine Kinase 140 U/L (38-174) Total Protein 6.9 g/dL (6.6-8.7) Albumin 3.5 g/dL (3.5-5.2) Globulin 3.4 g/dL Albumin/Globulin Ratio 1.0 (1.0-2.7) Microbiology Date/Time Source Procedure Growth Status 07/31/16 19:40 Blood Blood Culture - Preliminary NO GROWTH AFTER 48 HOURS Resulted 07/31/16 19:25 Blood Blood Culture - Preliminary NO GROWTH AFTER 48 HOURS Resulted RODGER MEJIA Aug 03, 2016 17:29
[2016-08-03 20:00] VITALS: BP 100/52
[2016-08-03] MEDS: Carvedilol 6.25mg Tab ORAL SCH (21:11)
[2016-08-03] MEDS: Solu-MEDROL 40mg Inj IVP SCH (21:11)
[2016-08-04] VITALS: BP 119/49
[2016-08-04] MEDS: DuoNeb 0.5-3(2.5)mg/3ml neb HHN SCH ×4 (01:08→19:43)
[2016-08-04 04:00] VITALS: BP 121/72
[2016-08-04] MEDS: Piperacillin/Tazobactam 3.375 GM in D5W 110 ML IVPB SCH ×3 (05:54→21:26)
[2016-08-04] MEDS: GlipiZIDE 5mg tab ORAL SCH (06:44)
[2016-08-04] MEDS: NovoLOG Insulin Flexpen SUBQ SCH ×4 (06:46→21:00)
[2016-08-04 08:19] VITALS: BP 108/59
[2016-08-04] MEDS: guaiFENesin 100mg/5ml Liq ud ORAL PRN ×2 (08:19→21:26)
[2016-08-04] MEDS: Aspirin EC 81mg tab ORAL SCH (08:20)
[2016-08-04] MEDS: Furosemide 40mg tab ORAL SCH ×3 (08:20→18:14)
[2016-08-04] MEDS: Lisinopril 10mg tab ORAL SCH (08:20)
[2016-08-04] MEDS: Solu-MEDROL 40mg Inj IVP SCH (08:21)
[2016-08-04] MEDS: Lyrica 25mg cap ORAL SCH ×3 (08:21→18:13)
[2016-08-04] MEDS: Imdur 30mg tab ORAL SCH (08:21)
[2016-08-04] MEDS: Carvedilol 6.25mg Tab ORAL SCH ×2 (08:21→21:00)
[2016-08-04] MEDS: Norco 10mg/325mg tab ORAL PRN ×2 (08:21→21:26)
[2016-08-04 09:56] LABS: ABG ALLEN TEST POSITIVE; ABG BASE EXCESS 6.5
[2016-08-04 11:28] VITALS: BP 117/50
--- NOTE | 2016-08-04 12:34 | General Progress Note ---
Assessment/Plan Problem List: (1) COPD exacerbation ICD Codes: J44.1 - Chronic obstructive pulmonary disease with (acute) exacerbation SNOMED: 039838222 (2) CAD (coronary artery disease) ICD Codes: I25.10 - CAD (coronary artery disease) SNOMED: 10837457 (3) Cardiomyopathy ICD Codes: I42.9 - Cardiomyopathy SNOMED: 79647025 Assessment/Plan Bronchodilators diuresis abxs steroids Subjective Allergies: Coded Allergies: No Known Allergies (Verified Allergy, Unknown, 06/01/07) Subjective feels better Objective Last 24 Hour Vital Signs Date Time Temp Pulse Resp B/P Pulse Ox O2 Delivery O2 Flow Rate FiO2 08/04/16 11:28 97.0 60 20 117/50 95 Nasal Cannula 3.0 08/04/16 08:45 46 23 97 Facial 30 08/04/16 08:21 39 108/59 08/04/16 08:21 108/59 08/04/16 08:20 108/59 08/04/16 08:19 97.0 70 20 108/59 99 Bi-pap 08/04/16 08:00 56 25 100 Bi-pap 30 08/04/16 07:50 52 27 97 Bi-pap 30 08/04/16 07:49 97 Bi-pap 08/04/16 07:48 Bi-pap 30 08/04/16 07:44 47 08/04/16 07:20 53 25 97 Facial 30 08/04/16 05:27 52 20 97 Facial 30 08/04/16 04:00 97.1 52 18 121/72 98 Bi-pap 08/04/16 04:00 40 08/04/16 04:00 31 08/04/16 03:03 56 22 97 Facial 30 08/04/16 01:10 54 22 97 Facial 30 08/04/16 01:09 55 22 100 Bi-pap 30 08/04/16 01:00 12 24 97 Bi-pap 30 08/04/16 00:00 34 08/04/16 00:00 40 08/04/16 00:00 97.4 35 22 119/49 96 Bi-pap 08/03/16 23:15 55 24 98 Facial 30 08/03/16 21:11 60 126/89 08/03/16 20:00 97.8 41 20 100/52 97 Nasal Cannula 08/03/16 20:00 39 08/03/16 19:30 52 20 100 Nasal Cannula 3.0 32 08/03/16 19:22 Nasal Cannula 3.0 32 08/03/16 19:22 48 20 95 Nasal Cannula 3.0 32 08/03/16 19:22 94 Nasal Cannula 3.0 32 08/03/16 16:00 46 08/03/16 16:00 98.1 58 20 126/89 98 Nasal Cannula 08/03/16 13:35 57 20 100 Nasal Cannula 3.0 32 08/03/16 13:25 53 23 96 Nasal Cannula 3.0 32 Intake and Output 08/03/16 08/04/16 19:00 07:00 Intake Total 590.0 ml 397.5 ml Output Total 1000 ml 1600 ml Balance -410.0 ml -1202.5 ml Intake Oral 480 ml 260 ml IV Total 110.0 ml 137.5 ml Output Urine Total 1000 ml 1600 ml # Voids 1 Laboratory Tests 08/04/16 09:42: Arterial Blood pH 7.430, Arterial Blood Partial Pressure CO2 49.0H, Arterial Blood Partial Pressure O2 63.0L, Arterial Blood HCO3 32.1H, Arterial Blood Oxygen Saturation 91.0L, Arterial Blood Base Excess 6.5, Jonas Test Positive Height (Feet): 5 Height (Inches): 7.00 Weight (Pounds): 341 Cardiovascular: normal rate Respiratory/Chest: expiratory wheezing PAOLA GONZALES Aug 04, 2016 12:34
[2016-08-04 16:00] VITALS: BP 91/46
--- NOTE | 2016-08-04 16:10 | Cardiac Electrophysiology PN ---
Assessment/Plan Assessment/Plan 1. SOB due to COPD and PNA on Abx. 2. Nonsustained ventricular tachycardia. No recurrence on Coreg 3. Coronary artery disease with history of coronary artery bypass graft.On Aspirin, Coreg and Imdur. 4. Cardiomyopathy, ejection fraction of 45% to 50% On Coreg, Lasix 40 po tid, Lisinopril 10, Imdur 60 5. 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 History of Respiratory failure. Extubated in 2014. 7. Severe chronic obstructive pulmonary disease.On BIPAP 8. Renal failure. Subjective Subjective Feeling better. Sitting in chair.Still wheezing. RN At bedside Objective Last 24 Hour Vital Signs Date Time Temp Pulse Resp B/P Pulse Ox O2 Delivery O2 Flow Rate FiO2 08/04/16 13:55 48 2 100 Bi-pap 30 08/04/16 13:45 46 20 97 Bi-pap 30 08/04/16 13:23 3.0 08/04/16 11:56 42 08/04/16 11:28 97.0 60 20 117/50 95 Nasal Cannula 3.0 08/04/16 08:45 46 23 97 Facial 30 08/04/16 08:21 39 108/59 08/04/16 08:21 108/59 08/04/16 08:20 108/59 08/04/16 08:19 97.0 70 20 108/59 99 Bi-pap 08/04/16 08:00 56 25 100 Bi-pap 30 08/04/16 07:50 52 24 97 Bi-pap 30 08/04/16 07:49 97 Bi-pap 08/04/16 07:48 Bi-pap 30 08/04/16 07:44 47 08/04/16 07:20 53 25 97 Facial 30 08/04/16 05:27 52 20 97 Facial 30 08/04/16 04:00 97.1 52 18 121/72 98 Bi-pap 08/04/16 04:00 40 08/04/16 04:00 31 08/04/16 03:03 56 22 97 Facial 30 08/04/16 01:10 54 22 97 Facial 30 08/04/16 01:09 55 22 100 Bi-pap 30 08/04/16 01:00 12 24 97 Bi-pap 30 08/04/16 00:00 34 08/04/16 00:00 40 08/04/16 00:00 97.4 35 22 119/49 96 Bi-pap 08/03/16 23:15 55 24 98 Facial 30 08/03/16 21:11 60 126/89 08/03/16 20:00 97.8 41 20 100/52 97 Nasal Cannula 08/03/16 20:00 39 08/03/16 19:30 52 20 100 Nasal Cannula 3.0 32 08/03/16 19:22 Nasal Cannula 3.0 32 08/03/16 19:22 48 20 95 Nasal Cannula 3.0 32 08/03/16 19:22 94 Nasal Cannula 3.0 32 Intake and Output 08/03/16 08/04/16 19:00 07:00 Intake Total 590.0 ml 397.5 ml Output Total 1000 ml 1600 ml Balance -410.0 ml -1202.5 ml Intake Oral 480 ml 260 ml IV Total 110.0 ml 137.5 ml Output Urine Total 1000 ml 1600 ml # Voids 1 Laboratory Tests Test 08/04/16 09:42 Arterial Blood pH 7.430 (7.350-7.450) Arterial Blood Partial Pressure CO2 49.0 mmHg (35.0-45.0) H Arterial Blood Partial Pressure O2 63.0 mmHg (75.0-100.0) L Arterial Blood HCO3 32.1 mmol/L (22.0-26.0) H Arterial Blood Oxygen Saturation 91.0 % (92.0-98.0) L Arterial Blood Base Excess 6.5 Jonas Test Positive Objective HEENT: mild jugular venous distention. LUNGS: Coarse rhonchi. CARDIOVASCULAR: Regular S1 and S2 with no gallop or murmur. ABDOMEN: Soft and nontender. EXTREMITIES: 1+ pitting edema. RODGER MEJIA Aug 04, 2016 16:10
--- NOTE | 2016-08-04 17:39 | Pulmonology Progress Note ---
Assessment/Plan Assessment/Plan 1. Hypercapnic respiratory failure. 2. Possible chronic obstructive pulmonary disease, doubt. 3. Obesity hypoventilation and sleep apnea. 4. History of intravenous drug use. 5. 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 6. Morbid obesity. 7. Coronary artery disease, status post bypass surgery. 8. Congestive heart failure. 9. History of stroke. BiPAP qhs and prn steroid taper, changed to PO abx ABG noted, better completed papers for BiPAP and O2 dc planning disc w Dr Cruz Subjective Respiratory: Reports: shortness of breath Allergies: Coded Allergies: No Known Allergies (Verified Allergy, Unknown, 06/01/07) Objective Last 24 Hour Vital Signs Date Time Temp Pulse Resp B/P Pulse Ox O2 Delivery O2 Flow Rate FiO2 08/04/16 16:00 97.8 51 20 91/46 98 Nasal Cannula 2.0 08/04/16 13:55 48 2 100 Bi-pap 30 08/04/16 13:45 46 20 97 Bi-pap 30 08/04/16 13:23 3.0 08/04/16 11:56 42 08/04/16 11:28 97.0 60 20 117/50 95 Nasal Cannula 3.0 08/04/16 08:45 46 23 97 Facial 30 08/04/16 08:21 39 108/59 08/04/16 08:21 108/59 08/04/16 08:20 108/59 08/04/16 08:19 97.0 70 20 108/59 99 Bi-pap 08/04/16 08:00 56 25 100 Bi-pap 30 08/04/16 07:50 52 24 97 Bi-pap 30 08/04/16 07:49 97 Bi-pap 08/04/16 07:48 Bi-pap 30 08/04/16 07:44 47 08/04/16 07:20 53 25 97 Facial 30 08/04/16 05:27 52 20 97 Facial 30 08/04/16 04:00 97.1 52 18 121/72 98 Bi-pap 08/04/16 04:00 40 08/04/16 04:00 31 08/04/16 03:03 56 22 97 Facial 30 08/04/16 01:10 54 22 97 Facial 30 08/04/16 01:09 55 22 100 Bi-pap 30 08/04/16 01:00 12 24 97 Bi-pap 30 08/04/16 00:00 34 08/04/16 00:00 40 08/04/16 00:00 97.4 35 22 119/49 96 Bi-pap 08/03/16 23:15 55 24 98 Facial 30 08/03/16 21:11 60 126/89 08/03/16 20:00 97.8 41 20 100/52 97 Nasal Cannula 08/03/16 20:00 39 08/03/16 19:30 52 20 100 Nasal Cannula 3.0 32 08/03/16 19:22 Nasal Cannula 3.0 32 08/03/16 19:22 48 20 95 Nasal Cannula 3.0 32 08/03/16 19:22 94 Nasal Cannula 3.0 32 Intake and Output 08/03/16 08/04/16 19:00 07:00 Intake Total 590.0 ml 397.5 ml Output Total 1000 ml 1600 ml Balance -410.0 ml -1202.5 ml Intake Oral 480 ml 260 ml IV Total 110.0 ml 137.5 ml Output Urine Total 1000 ml 1600 ml # Voids 1 Objective morbidly obese HEENT: atraumatic Respiratory/Chest: lungs clear Laboratory Tests 08/04/16 09:42: Arterial Blood pH 7.430, Arterial Blood Partial Pressure CO2 49.0H, Arterial Blood Partial Pressure O2 63.0L, Arterial Blood HCO3 32.1H, Arterial Blood Oxygen Saturation 91.0L, Arterial Blood Base Excess 6.5, Jonas Test Positive Current Medications Medications (Trade) Dose Ordered Sig/Jossy Route PRN Reason Start Time Stop Time Status Last Admin Dose Admin Acetaminophen/ Hydrocodone Bitart 1 ea 1 ea Q4H PRN ORAL Severe Pain (Pain Scale 7-10) 08/02/16 20:00 08/09/16 19:59 08/04/16 08:21 Acetaminophen/ Hydrocodone Bitart (English 5/325) 1 tab Q4H PRN ORAL Moderate Pain (Pain Scale 4-6) 08/02/16 20:00 08/09/16 19:59 Albuterol/ Ipratropium (DuoNeb 0.5-3(2.5)mg/3ml) 3 ml Q6HRT HHN 08/01/16 03:30 08/06/16 03:29 08/04/16 13:45 Aspirin (Ecotrin) 81 mg DAILY ORAL 08/01/16 17:00 08/31/16 16:59 08/04/16 08:20 Carvedilol (Coreg) 6.25 mg EVERY 12 HOURS ORAL 08/03/16 21:00 09/02/16 20:59 08/03/16 21:11 Dextrose (Dextrose 50%) STAT PRN IV Hypoglycemia 08/01/16 03:30 08/31/16 03:29 Furosemide (Lasix) 40 mg TID ORAL 08/01/16 09:00 08/31/16 08:59 08/04/16 13:22 Glipizide (Glucotrol) 2.5 mg ACBREAKFAST ORAL 08/01/16 06:30 08/31/16 06:29 08/04/16 06:44 Guaifenesin (Robitussin) 200 mg Q4H PRN ORAL For Cough 08/01/16 14:30 08/31/16 14:29 08/04/16 08:19 Insulin Aspart (NovoLOG) BEFORE MEALS AND HS SUBQ 08/01/16 06:30 08/31/16 06:29 08/04/16 16:37 Isosorbide Mononitrate (Imdur) 60 mg DAILY ORAL 08/02/16 09:00 09/01/16 08:59 08/04/16 08:21 Lisinopril (Zestril) 10 mg DAILY ORAL 08/01/16 09:00 08/31/16 08:59 08/04/16 08:20 Methylprednisolone Sodium Succinate (Solu-MEDROL) 40 mg EVERY 12 HOURS IVP 08/03/16 21:00 09/02/16 20:59 08/04/16 08:21 Piperacillin Sod/ Tazobactam Sod/ Dextrose (Zosyn/D5W) 110 ml @ 27.5 mls/hr EVERY 8 HOURS IVPB 08/03/16 13:00 08/08/16 12:59 08/04/16 13:22 Pregabalin (Lyrica) 25 mg THREE TIMES A DAY ORAL 08/02/16 21:00 09/01/16 20:59 08/04/16 13:22 LANDEN MEAD 23, 2017 17:39
[2016-08-04] MEDS ORDERED: NS 275ml ONE (18:13)
[2016-08-04 20:00] VITALS: BP 96/50
[2016-08-05 00:30] VITALS: BP 100/55
[2016-08-05] MEDS: DuoNeb 0.5-3(2.5)mg/3ml neb HHN SCH ×3 (00:49→14:42)
[2016-08-05 04:00] VITALS: BP 97/50
[2016-08-05] MEDS: Piperacillin/Tazobactam 3.375 GM in D5W 110 ML IVPB SCH ×2 (05:33→14:21)
[2016-08-05] MEDS: NovoLOG Insulin Flexpen SUBQ SCH ×2 (06:17→11:30)
[2016-08-05] MEDS: GlipiZIDE 5mg tab ORAL SCH (06:17)
[2016-08-05 07:55] VITALS: BP 116/66
[2016-08-05] MEDS: Carvedilol 6.25mg Tab ORAL SCH (09:00)
[2016-08-05] MEDS ORDERED: PredniSONE 20mg tab ORAL SCH (09:00)
[2016-08-05] MEDS: Lyrica 25mg cap ORAL SCH ×2 (09:01→11:59)
[2016-08-05] MEDS: Furosemide 40mg tab ORAL SCH ×2 (09:02→11:59)
[2016-08-05] MEDS: Lisinopril 10mg tab ORAL SCH (09:02)
[2016-08-05] MEDS: Imdur 30mg tab ORAL SCH (09:02)
[2016-08-05] MEDS: Aspirin EC 81mg tab ORAL SCH (09:02)
[2016-08-05] MEDS: Norco 10mg/325mg tab ORAL PRN ×2 (09:03→14:21)
[2016-08-05 11:37] VITALS: BP 102/45
[2016-08-05] MEDS ORDERED: PREDNISONE20 MG ORAL (11:40)
--- NOTE | 2016-08-05 15:46 | Cardiac Electrophysiology PN ---
Assessment/Plan Assessment/Plan 1. SOB due to CMP and COPD and PNA on Abx. and Lasix. 2. Nonsustained ventricular tachycardia. No recurrence on Coreg 3. Coronary artery disease with history of coronary artery bypass graft.On Aspirin, Coreg and Imdur. 4. Cardiomyopathy, ejection fraction of 45% to 50% On Coreg, Lisinopril 10, Imdur 60. Change Lasix 40 po bid. 5. 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 History of Respiratory failure. Extubated in 2014. 7. Severe chronic obstructive pulmonary disease.On BIPAP 8. Renal failure. DW RN DC tele Subjective Subjective Feeling better. Sitting in chair. RN At bedside. Awaiting O2 to go home with home health Objective Last 24 Hour Vital Signs Date Time Temp Pulse Resp B/P Pulse Ox O2 Delivery O2 Flow Rate FiO2 08/05/16 15:20 97.5 08/05/16 14:45 50 19 100 Nasal Cannula 2.0 28 08/05/16 14:42 48 20 98 Nasal Cannula 2.0 28 08/05/16 12:58 97.5 08/05/16 12:32 3.0 08/05/16 11:37 97.5 51 20 102/45 98 Nasal Cannula 2.0 08/05/16 09:02 116/66 08/05/16 09:02 116/66 08/05/16 09:00 51 116/08/05/16 08:11 51 19 100 Bi-pap 30 08/05/16 08:09 55 08/05/16 08:00 98 Nasal Cannula 2.0 28 08/05/16 08:00 52 21 99 Bi-pap 30 08/05/16 08:00 Nasal Cannula 2.0 28 08/05/16 08:00 3.0 08/05/16 07:55 97.0 45 18 116/66 100 Bi-pap 15.0 08/05/16 05:24 43 21 99 Facial 30 08/05/16 04:00 30 08/05/16 04:00 41 08/05/16 04:00 97.0 41 20 97/50 98 Bi-pap 08/05/16 03:15 40 18 98 Facial 30 08/05/16 01:03 45 19 100 Bi-pap 30 08/05/16 00:46 48 20 99 Bi-pap 30 08/05/16 00:45 48 20 99 Facial 30 08/05/16 00:30 97.0 90 20 100/55 97 Bi-pap 08/05/16 00:00 46 08/05/16 00:00 30 08/04/16 22:28 55 26 99 Facial 26 08/04/16 21:00 45 96/50 08/04/16 20:00 53 08/04/16 20:00 3.0 08/04/16 20:00 97.7 45 20 96/50 97 Nasal Cannula 2.0 08/04/16 19:52 50 20 99 Nasal Cannula 2.0 28 08/04/16 19:42 Nasal Cannula 2.0 28 08/04/16 19:42 48 20 98 Nasal Cannula 2.0 28 08/04/16 19:41 98 Nasal Cannula 2.0 28 08/04/16 16:00 97.8 51 20 91/46 98 Nasal Cannula 2.0 08/04/16 16:00 3.0 08/04/16 16:00 55 Intake and Output 08/04/16 08/05/16 19:00 07:00 Intake Total 590.0 ml 437.5 ml Output Total 700 ml 1350 ml Balance -110.0 ml -912.5 ml Intake Oral 240 ml 300 ml IV Total 110.0 ml 137.5 ml Other 240 ml Output Urine Total 700 ml 1350 ml Current Medications Medications (Trade) Dose Ordered Sig/Jossy Route PRN Reason Start Time Stop Time Status Last Admin Dose Admin Acetaminophen/ Hydrocodone Bitart 1 ea 1 ea Q4H PRN ORAL Severe Pain (Pain Scale 7-10) 08/02/16 20:00 08/09/16 19:59 08/05/16 14:21 Acetaminophen/ Hydrocodone Bitart ([place] 5/325) 1 tab Q4H PRN ORAL Moderate Pain (Pain Scale 4-6) 08/02/16 20:00 08/09/16 19:59 Albuterol/ Ipratropium (DuoNeb 0.5-3(2.5)mg/3ml) 3 ml Q6HRT HHN 08/01/16 03:30 08/06/16 03:29 08/05/16 14:42 Aspirin (Ecotrin) 81 mg DAILY ORAL 08/01/16 17:00 08/31/16 16:59 08/05/16 09:02 Carvedilol (Coreg) 6.25 mg EVERY 12 HOURS ORAL 08/03/16 21:00 09/02/16 20:59 08/03/16 21:11 Dextrose (Dextrose 50%) STAT PRN IV Hypoglycemia 08/01/16 03:30 08/31/16 03:29 Furosemide (Lasix) 40 mg TID ORAL 08/01/16 09:00 08/31/16 08:59 08/05/16 11:59 Glipizide (Glucotrol) 2.5 mg ACBREAKFAST ORAL 08/01/16 06:30 08/31/16 06:29 08/05/16 06:17 Guaifenesin (Robitussin) 200 mg Q4H PRN ORAL For Cough 08/01/16 14:30 08/31/16 14:29 08/04/16 21:26 Insulin Aspart (NovoLOG) BEFORE MEALS AND HS SUBQ 08/01/16 06:30 08/31/16 06:29 08/05/16 06:17 Isosorbide Mononitrate (Imdur) 60 mg DAILY ORAL 08/02/16 09:00 09/01/16 08:59 08/05/16 09:02 Lisinopril (Zestril) 10 mg DAILY ORAL 08/01/16 09:00 08/31/16 08:59 08/05/16 09:02 Piperacillin Sod/ Tazobactam Sod/ Dextrose (Zosyn/D5W) 110 ml @ 27.5 mls/hr EVERY 8 HOURS IVPB 08/03/16 13:00 08/08/16 12:59 08/05/16 14:21 Prednisone (predniSONE) 20 mg DAILY ORAL 08/05/16 09:00 09/04/16 08:59 08/05/16 09:01 Pregabalin (Lyrica) 25 mg THREE TIMES A DAY ORAL 08/02/16 21:00 09/01/16 20:59 08/05/16 11:59 Objective HEENT: mild jugular venous distention. LUNGS: Coarse rhonchi. CARDIOVASCULAR: Regular S1 and S2 with no gallop or murmur. ABDOMEN: Soft and nontender. EXTREMITIES: 1+ pitting edema. RODGER MEJIA Aug 05, 2016 15:46
[2016-08-05] MEDS ORDERED: Furosemide 40mg tab ORAL SCH (18:00)
--- NOTE | 2016-08-09 07:44 | Discharge Summary ---
Discharge Summary Hospital Course Date of Admission Jul 31, 2016 at 19:56 Date of Discharge Aug 05, 2016 at 18:00 Admitting Diagnosis copd exacerbation HPI Jesse Funes is a 71 year old male who was admitted on Jul 31, 2016 at 19: 56 for Chronic Obstructive Pulmonary Disease Exacerbation Hospital Course dc summary # [id number] Discharge Medications New Medications: Prednisone* (Prednisone*) 20 Mg Tablet 20 MG ORAL DAILY for 30 Days, #30 TAB Continued Medications: Allopurinol* (Allopurinol*) 300 Mg Tablet 300 MG ORAL DAILY, TAB Aspirin* (Aspir 81*) 81 Mg Tablet.dr 81 MG ORAL DAILY, TAB Atorvastatin Calcium* (Atorvastatin Calcium*) 40 Mg Tablet 80 MG ORAL BEDTIME, TAB Budesonide/Formoterol Fumarate (Symbicort 160-4.5 Mcg Inhaler) 1 Puff Puffs 2 PUFF INH TWICE A DAY for 28 Days, % 5 Refills Carvedilol* (Carvedilol*) 25 Mg Tablet 25 MG ORAL EVERY 12 HOURS, TAB Furosemide* (Lasix*) 80 Mg Tablet 40 MG ORAL THREE TIMES A DAY, TAB Glipizide* (Glipizide*) 5 Mg Tablet 5 MG ORAL DAILY, TAB Isosorbide Dinitrate* (Isordil*) 30 Mg Tablet 60 MG ORAL DAILY, #20 TAB 0 Refills Lisinopril (Lisinopril*) 20 Mg Tablet 10 MG ORAL DAILY, TAB Methadone Hcl* (Methadone*) 10 Mg Tab 20 MG ORAL DAILY, #30 TAB Omeprazole (Omeprazole) 20 Mg Tablet.dr 20 MG ORAL DAILY, TAB Pregabalin* (Lyrica*) 75 Mg Capsule 75 MG ORAL THREE TIMES A DAY, CAP Discontinued Medications: Prednisone* (Prednisone*) 20 Mg Tab 10 MG ORAL DAILY, #30 TAB Discharge Condition Upon Discharge: stable Discharge Disposition Patient was discharged to Home with Home Health(06) Discharge Diagnoses: Discharge Instructions Discharge Instructions Special Instructions I have been assigned to complete a D/C Summary on this account. I was not involved in the patient management Jacqui Thakur NP ([place]) Aug 09, 2016 07:44
--- NOTE | 2016-08-10 00:39 | Discharge Summary 2 SIG ---
DATE OF ADMISSION: 07/31/2016 DATE OF DISCHARGE: 08/05/2016 REASON FOR ADMISSION: 71-year-old male, presented to emergency room with complaint of shortness of breath. The [facility] was [facility] and was given 5-day course of antibiotics. However, the patient continued to decompensate and felt worse, increasingly short of breath. He denied chest pain. Denied pleuritic pain. The patient with a history of COPD. No current smoking. He denied fevers, denied chills. Denied recent traveling. He had increased edema in both legs and history of coronary artery disease with CABG as well as history of IV drug abuse, stroke, morbidly obesity. Workup in the emergency room revealed no leukocytosis. The patient was afebrile. X-ray revealed evidence of congestion. Pulse oximetry initially was stable on the room air. EKG showed right bundle branch block with the left posterior fascicular block. Troponin was negative. Pro BNP was 168. In the ED the patient was provided with nebulizing treatment, initial dose of the IV steroids, and given Lasix. Patient was admitted for further management. ADMITTING DIAGNOSES: 1. Acute chronic obstructive pulmonary disease exacerbation. 2. Hypertension. 3. Hyperlipidemia. HOSPITAL STAY: The patient admitted on telemetry floor. Pulmonology and Cardiology consult were requested. The patient started initially on the BiPAP. Subsequently, as patient's condition was improving, BiPAP was changed to use at nighttime and as needed. Initial ABG with evidence of hypercapnia. Aggressive pulmonary toilet provided. The patient started on IV steroids, which were gradually tapered and changed to oral upon discharge. Follow up ABG demonstrated improvement. The blood culture were negative. The patient needed home oxygen and BiPAP, all of these arrangement were done prior to discharge. Forming Fixer followed the patient. Echocardiogram revealed preserved ejection fraction of 60% to 65%, right ventricular systolic pressure of 16. Current ECHO revealed improvement in EF. The patient previously had ejection fraction of 45% to 50%. The patient on medical treatment with beta-farheen, PAULETTE inhibitor and Lasix. Renal parameters, intake and output were closely monitored. Electrolytes were monitored and imbalances were addressed as needed. Blood pressure was managed with beta-farheen, PAULETTE inhibitor, and Lasix ,was stable. The patient with a history of CABG. Aspirin , Plavix and and beta farheen continued. The patient counseled on abstinence from the IV drugs. Blood sugar was managed with sliding scale of insulin, discharged home on oral antiglycemic regimen. The patient noted on telemetry to have nonsustained ventricular tachycardia as well as bradycardia with right bundle- branch block and left posterior fascicular block, which improved with decreased dose of beta -farheen, no further episode of nonsustained ventricular tachycardia. Venous duplex bilateral lower extremities was negative. Noted elevated CK-783. Statin was discontinued, CK was trended, down to 140 prior to discharge. The patient was stable for discharge and follow up with the [facility] facility. DISCHARGE DIAGNOSES: Include: 1. Hypercapnic respiratory failure. 2. Likely chronic obstructive pulmonary disease exacerbation. 3. Morbid obesity. 4. Hypoventilation. 5. Sleep apnea. 6. Coronary artery disease, status post coronary artery bypass graft. 7. History of intravenous drug abuse. 8. Bradycardia with right bundle-branch block and left posterior fascicular block. 9. Nonsustained ventricular tachycardia. 10. Congestive heart failure. 11. Cardiomyopathy- improved EF. 12. Myopathy DISCHARGE MEDICATIONS: See medication reconciliation list. DISCHARGE INSTRUCTIONS: The patient discharged home with home health. Oxygen and BiPAP were arranged. Follow up with the primary medical doctor at the [facility]. Jose Alberto Gee M.D. I have been assigned to dictate discharge summary on this account and I was not involved in the patient's management. Jacqui Reyesberna N.PBuddy DR: Cami JOB#: [id number] CC: JERONIMO
== END 2016-08-05 18:00 | disposition home health service (06) | DRG 193 ==
LOC: EMR 19:34 → 2E 19:56 → EDBEDREQ 23:49
PROC: 5A09457 Assistance with Respiratory Ventilation, 24-96 Consecutive Hours, Continuous Positive Airway Pressure (ICD-10-PCS; principal; 2016-07-31)
DX: J18.9 Pneumonia, unspecified organism (principal); J96.92 Respiratory failure, unspecified with hypercapnia; I47.2 Ventricular tachycardia; I42.9 Cardiomyopathy, unspecified; E66.2 Morbid (severe) obesity with alveolar hypoventilation; Z68.42 Body mass index [BMI] 45.0-49.9, adult; J44.1 Chronic obstructive pulmonary disease with (acute) exacerbation; I69.354 Hemiplegia and hemiparesis following cerebral infarction affecting left non-dominant side; I50.9 Heart failure, unspecified; R00.1 Bradycardia, unspecified; I25.10 Atherosclerotic heart disease of native coronary artery without angina pectoris; E11.9 Type 2 diabetes mellitus without complications; E78.5 Hyperlipidemia, unspecified; I10 Essential (primary) hypertension; G72.9 Myopathy, unspecified; Z95.1 Presence of aortocoronary bypass graft; F19.21 Other psychoactive substance dependence, in remission; I45.10 Unspecified right bundle-branch block
CPT/HCPCS: 36415; 36600; 71010; 80053; 82248; 82550; 82553; 82803; 82962; 83605; 83880; 84439; 84443; 84484; 85007; 85025; 85379; 87040; 93005; 93306; 93970; 94640; 94660; 94664; 94760; J1815; J7620; J8499

== ENCOUNTER 2017-02-23 19:18 | Inpatient (IN) | payer MEDICARE, MEDICAID ==
[~2017-02-23] VITALS: Ht 170.2 cm; Wt 156.5 kg
[~2017-02-23 19:18] MED LIST changes: +CARVEDILOL25 MG ORAL; -DuoNeb 0.5-3(2.5)mg/3ml neb ONE; +GLIPIZIDE5 MG ORAL; +ISOSORBIDE DINI30 MG ORAL; +LYRICA75 M1 ORAL
--- NOTE | 2017-02-23 20:01 | Emergency Room Report ---
History of Present Illness General Chief Complaint: Upper Respiratory Illness Source: Patient (Wen Soliman) Present Illness HPI 72-year-old male presents to the emergency department complaining of intermittent shortness of breath with new onset chest tightness. Patient was evaluated by his doctor who states he has fluid on the lungs and requires ED evaluation. Patient reports history of quadruple bypass, lower extremity edema , diabetes, high blood pressure and hyperlipidemia in addition to stroke. Patient denies pain, ice cough, fevers, chills. He states she took 40 mg Lasix today. Denies CP, Palpitations, LOC, AMS, dizziness, Changes in Vision, Sensation, paresthesias, or a sudden severe headache. (Wen Soliman) Allergies: Coded Allergies: No Known Allergies (Verified Allergy, Unknown, 06/01/07) Nursing Documentation-H Hx Hypertension: Yes Hx Pacemaker: No Hx Asthma: Yes Hx COPD: Yes Hx Diabetes: Yes Hx Cancer: Yes - Prostate Hx Gastrointestinal Problems: No Hx Dialysis: No Hx Neurological Problems: No Hx Cerebrovascular Accident: Yes - 2007 Hx Seizures: No Hx Numbness: Yes (Wen Soliman) Physical Exam Vital Signs Date Time Temp Pulse Resp B/P (MAP) Pulse Ox O2 Delivery O2 Flow Rate FiO2 02/23/17 19:25 98.4 53 18 144/88 95 Room Air (Wen Soliman) Medical Decision Making Diagnostic Impression: Primary Impression: Renal insufficiency Additional Impression: CHF (congestive heart failure) ER Course 72-year-old male presents to the emergency department complaining of intermittent shortness of breath with new onset chest tightness. Patient was evaluated by his doctor who states he has fluid on the lungs and requires ED evaluation. Patient reports history of quadruple bypass, lower extremity edema , diabetes, high blood pressure and hyperlipidemia in addition to stroke. Patient denies pain, ice cough, fevers, chills. He states she took 40 mg Lasix today. Denies CP, Palpitations, LOC, AMS, dizziness, Changes in Vision, Sensation, paresthesias, or a sudden severe headache. Ddx considered but are not limited to [place], CHF, pneumonia, contusion, costochondritis, PE, ACS, Shoulder strain, Chest wall contusion. aortic dissection. Vital signs: are WNL, pt. is afebrile H&PE are most consistent with [ ] - Distant lung sounds no elvira ORDERS: - EKG: -CBC -CMP -CK-MB -Troponins -Pro BNP: CXR: ED INTERVENTIONS: - PT. placed on cardiac monitoring. DISCHARGE: At this time pt. is stable for d/c to home. Will provide printed patient care instructions, and any necessary prescriptions. Care plan and follow up instructions have been discussed with the patient prior to discharge. (Wen Soliman) ER Course Patient is a fairly complex patient with multiple differential to consideration including but not limited to cardiac cardiopulmonary and vascular emergencies Patient's x-ray imaging reveals, congestion clinically patient has edema as well Patient was provided with diuretics asking for pain medication as well for his lower back and admitted for further care Labs Test 02/23/17 21:10 02/23/17 23:33 02/24/17 02:45 White Blood Count 7.9 K/UL (4.8-10.8) Red Blood Count 4.80 M/UL (4.70-6.10) Hemoglobin 13.5 G/DL (14.2-18.0) Hematocrit 44.8 % (42.0-52.0) Mean Corpuscular Volume 93 FL (80-99) Mean Corpuscular Hemoglobin 28.1 PG (27.0-31.0) Mean Corpuscular Hemoglobin Concent 30.1 G/DL (32.0-36.0) Red Cell Distribution Width 13.9 % (11.6-14.8) Platelet Count 134 K/UL (150-450) Mean Platelet Volume 10.0 FL (6.5-10.1) Neutrophils (%) (Auto) 66.2 % (45.0-75.0) Lymphocytes (%) (Auto) 23.0 % (20.0-45.0) Monocytes (%) (Auto) 7.8 % (1.0-10.0) Eosinophils (%) (Auto) 1.5 % (0.0-3.0) Basophils (%) (Auto) 1.5 % (0.0-2.0) Troponin I 0.021 ng/mL (0.000-0.056) Sodium Level 138 MMOL/L (136-145) Potassium Level 3.4 MMOL/L (3.5-5.1) Chloride Level 102 MMOL/L (98-107) Carbon Dioxide Level 32 MMOL/L (21-32) Anion Gap 4 (5-15) Blood Urea Nitrogen 12 mg/dL (7-18) Creatinine 1.4 MG/DL (0.55-1.30) Estimat Glomerular Filtration Rate mL/min (>60) Glucose Level 120 MG/DL (74-106) Calcium Level 8.7 MG/DL (8.5-10.1) Total Bilirubin 0.8 MG/DL (0.2-1.0) Aspartate Amino Transf (AST/SGOT) 20 U/L (15-37) Alanine Aminotransferase (ALT/SGPT) 13 U/L (12-78) Alkaline Phosphatase 86 U/L (46-116) Total Creatine Kinase 267 U/L (26-308) Creatine Kinase MB 1.3 NG/ML (0.0-3.6) Creatine Kinase MB Relative Index 0.4 Pro-B-Type Natriuretic Peptide 142 (0-125) Total Protein 7.5 G/DL (6.4-8.2) Albumin 3.5 G/DL (3.4-5.0) Globulin 4.0 g/dL Albumin/Globulin Ratio 0.9 (1.0-2.7) (KYREE LLANES D.O.) Rhythm Strip Diag. Results EP Interpretation: yes Rate: 88 Rhythm: NSR, no PVC's, no ectopy (KYREE LLANES D.O.) Chest X-Ray Diagnostic Results Chest X-Ray Diagnostic Results : Chest X-Ray Ordered: Yes # of Views/Limited/Complete: 1 View Indication: Chest Pain EP Interpretation: Yes Interpretation: no consolidation, no effusion, no pneumothorax, other - Pulmonary congestion Impression: No acute disease Electronically Signed by: Kyree Llanes DO (KYREE LLANES D.O.) Last Vital Signs Date Time Temp Pulse Resp B/P (MAP) Pulse Ox O2 Delivery O2 Flow Rate FiO2 02/23/17 19:25 98.4 53 18 144/88 95 Room Air (Wen Soliman) Status: improved (KYREE LLANES D.O.) Disposition: ADMITTED INPATIENT Condition: Serious Wen Soliman Feb 23, 2017 20:01 KYREE LLANES D.O. Feb 24, 2017 05:48
[2017-02-23 21:29] LABS: BASOPHILS % (AUTO) 1.5 % (0.0-2.0); EOSINOPHILS % (AUTO) 1.5 % (0.0-3.0); MEAN CORPUSCULAR HEMOGLOBIN 28.1 PG (27.0-31.0); MEAN CORPUSCULAR HGB CONC 30.1 G/DL (32.0-36.0); MEAN CORPUSCULAR VOLUME 93 FL (80-99); MONOCYTES % (AUTO) 7.8 % (1.0-10.0); NEUTROPHILS % (AUTO) 66.2 % (45.0-75.0); PLATELET COUNT 134 K/UL (150-450); RED CELL DISTRIBUTION WIDTH 13.9 % (11.6-14.8); WHITE BLOOD COUNT 7.9 K/UL (4.8-10.8)
[2017-02-23] MEDS ORDERED: Morphine Sulfate 4mg/ml Inj IVP ONE (22:00)
[2017-02-23] MEDS ORDERED: HYDRALAZINE HCL10 MG ORAL (22:57)
[2017-02-23] MEDS ORDERED: POTASSIUM CHLO10 ME3 ORAL (22:58)
[2017-02-23] MEDS ORDERED: GUIATUSS AC SY120 ML ORAL (23:00)
[2017-02-23 23:08] VITALS: BP 127/58
[2017-02-23] MEDS ORDERED: ALBUTEROL2.5 MG/3 M INH (23:21)
[2017-02-23] MEDS ORDERED: CARVEDILOL25 MG ORAL (23:22)
[2017-02-23] MEDS ORDERED: VITAMIN D1000 UNI1 ORAL (23:22)
[2017-02-23] MEDS ORDERED: FLUTICASONE PRO16 G1 NASAL (23:23)
[2017-02-24] MEDS ORDERED: Morphine Sulfate 2mg/ml Inj IVP PRN (00:45)
[2017-02-24] MEDS ORDERED: HYDROmorphone 1mg/ml Carpuject IVP PRN (00:45)
[2017-02-24 01:18] VITALS: BP 137/62
[2017-02-24] MEDS ORDERED: Lyrica 75mg cap ORAL SCH (01:30)
[2017-02-24] MEDS ORDERED: Carvedilol 25mg Tab ORAL SCH ×2 (01:30→09:00)
[2017-02-24] MEDS: Albuterol/Ipratropium 3ml neb HHN SCH ×4 (01:30→21:17)
[2017-02-24] MEDS: Flonase Nasal Inhaler 16gm NASAL SCH ×3 (02:00→18:18)
[2017-02-24 04:09] LABS: ALANINE AMINOTRANSFERASE 13 U/L (12-78); ANION GAP 4 (5-15); ASPARTATE AMINO TRANSFERASE 20 U/L (15-37); CALCIUM 8.7 MG/DL (8.5-10.1); CARBON DIOXIDE 32 MMOL/L (21-32); CHLORIDE 102 MMOL/L (98-107); CKMB 1.3 NG/ML (0.0-3.6); CREATININE 1.4 MG/DL (0.55-1.30); POTASSIUM 3.4 MMOL/L (3.5-5.1); SODIUM 138 MMOL/L (136-145); TOTAL PROTEIN 7.5 G/DL (6.4-8.2)
[2017-02-24 05:21] LABS: ALBUMIN/GLOBULIN RATIO 0.9 (1.0-2.7)
[2017-02-24 06:37] LABS: ALANINE AMINOTRANSFERASE 14 U/L (12-78); ALBUMIN/GLOBULIN RATIO 0.8 (1.0-2.7); ANION GAP 10 (5-15); ASPARTATE AMINO TRANSFERASE 24 U/L (15-37); CALCIUM 8.8 MG/DL (8.5-10.1); CARBON DIOXIDE 26 MMOL/L (21-32); CHLORIDE 105 MMOL/L (98-107); CKMB 1.6 NG/ML (0.0-3.6); CREATININE 1.5 MG/DL (0.55-1.30); POTASSIUM 3.6 MMOL/L (3.5-5.1); SODIUM 141 MMOL/L (136-145); TOTAL PROTEIN 7.8 G/DL (6.4-8.2)
[2017-02-24] MEDS: GlipiZIDE 5mg tab ORAL SCH (07:10)
[2017-02-24 08:15] VITALS: BP 120/69
[2017-02-24] MEDS: NovoLOG Insulin Flexpen SUBQ SCH ×4 (08:19→20:52)
[2017-02-24] MEDS: HYDROmorphone 1mg/ml Carpuject IVP PRN ×2 (08:34→21:56)
[2017-02-24] MEDS ORDERED: Lisinopril 10mg tab ORAL SCH (09:00)
[2017-02-24] MEDS: Aspirin EC 81mg tab ORAL SCH (09:28)
[2017-02-24] MEDS: Lyrica 75mg cap ORAL SCH ×3 (09:30→18:19)
[2017-02-24 12:00] VITALS: BP_SYST 126; BP_SYST 90; BP_DIAS 64; BP_DIAS 73
--- NOTE | 2017-02-24 12:36 | Diagnostic Imaging Report ---
Indication: Chest pain Comparison: 08/03/16 A single view chest radiograph was obtained. Findings: Pulmonary vascular congestion demonstrated with cardiomegaly. Sternotomy noted. Bones are unremarkable. Impression: Interstitial edema suspected.
--- NOTE | 2017-02-24 12:54 | History & Physical ---
History and Physical History & Physicial HP dictated # [id number] PAOLA GONZALES Feb 24, 2017 12:54
[2017-02-24 14:20] VITALS: BP 104/53
[2017-02-24] MEDS: Carvedilol 12.5mg tab ORAL SCH ×2 (14:23→14:30)
--- NOTE | 2017-02-24 14:46 | Cardiology Progress Note ---
Assessment/Plan Assessment/Plan dyspnea copd diastolic failure ? htn obesity rbbb abn ekg unchanged since 07/2016 cad s/p cabg exam not straining for sig chf finding contineu diuretic for 1- 2 dyas watch bp with meds repeat echo last one in july good lv function [id number] Objective Last 24 Hour Vital Signs Date Time Temp Pulse Resp B/P (MAP) Pulse Ox O2 Delivery O2 Flow Rate FiO2 02/24/17 14:23 61 104/53 02/24/17 14:20 61 20 104/53 96 Room Air 02/24/17 13:35 56 20 100 Room Air 02/24/17 13:25 57 20 96 Room Air 02/24/17 13:22 57 20 Room Air 02/24/17 12:00 97.7 58 17 90/64 94 Room Air 02/24/17 12:00 52 02/24/17 09:28 120/69 02/24/17 08:15 98.7 58 21 120/69 97 Room Air 58 02/24/17 08:00 57 02/24/17 05:24 98.1 58 18 98 02/24/17 04:57 98.2 73 24 137/62 100 Room Air 02/24/17 01:18 98.2 73 24 137/62 100 Room Air 02/23/17 23:08 98.0 63 22 127/58 97 Room Air 02/23/17 21:10 53 18 Room Air 02/23/17 19:25 98.4 53 18 144/88 95 Room Air Intake and Output 02/24/17 02/25/17 19:00 07:00 Intake Total 240 ml Balance 240 ml Intake Oral 240 ml Laboratory Tests Test 02/23/17 21:10 02/23/17 23:33 02/24/17 02:45 White Blood Count 7.9 K/UL (4.8-10.8) Red Blood Count 4.80 M/UL (4.70-6.10) Hemoglobin 13.5 G/DL (14.2-18.0) L Hematocrit 44.8 % (42.0-52.0) Mean Corpuscular Volume 93 FL (80-99) Mean Corpuscular Hemoglobin 28.1 PG (27.0-31.0) Mean Corpuscular Hemoglobin Concent 30.1 G/DL (32.0-36.0) L Red Cell Distribution Width 13.9 % (11.6-14.8) Platelet Count 134 K/UL (150-450) L Mean Platelet Volume 10.0 FL (6.5-10.1) Neutrophils (%) (Auto) 66.2 % (45.0-75.0) Lymphocytes (%) (Auto) 23.0 % (20.0-45.0) Monocytes (%) (Auto) 7.8 % (1.0-10.0) Eosinophils (%) (Auto) 1.5 % (0.0-3.0) Basophils (%) (Auto) 1.5 % (0.0-2.0) Troponin I 0.021 ng/mL (0.000-0.056) Sodium Level 141 MMOL/L (136-145) 138 MMOL/L (136-145) Potassium Level 3.6 MMOL/L (3.5-5.1) 3.4 MMOL/L (3.5-5.1) L Chloride Level 105 MMOL/L (98-107) 102 MMOL/L (98-107) Carbon Dioxide Level 26 MMOL/L (21-32) 32 MMOL/L (21-32) Anion Gap 10 (5-15) 4 (5-15) L Blood Urea Nitrogen 13 mg/dL (7-18) 12 mg/dL (7-18) Creatinine 1.5 MG/DL (0.55-1.30) H 1.4 MG/DL (0.55-1.30) H Estimat Glomerular Filtration Rate mL/min (>60) mL/min (>60) Glucose Level 119 MG/DL (74-106) H 120 MG/DL (74-106) H Calcium Level 8.8 MG/DL (8.5-10.1) 8.7 MG/DL (8.5-10.1) Total Bilirubin 0.8 MG/DL (0.2-1.0) 0.8 MG/DL (0.2-1.0) Aspartate Amino Transf (AST/SGOT) 24 U/L (15-37) 20 U/L (15-37) Alanine Aminotransferase (ALT/SGPT) 14 U/L (12-78) 13 U/L (12-78) Alkaline Phosphatase 88 U/L (46-116) 86 U/L (46-116) Total Creatine Kinase 273 U/L (26-308) 267 U/L (26-308) Creatine Kinase MB 1.6 NG/ML (0.0-3.6) 1.3 NG/ML (0.0-3.6) Creatine Kinase MB Relative Index 0.5 0.4 Pro-B-Type Natriuretic Peptide 133 (0-125) H 142 (0-125) H Total Protein 7.8 G/DL (6.4-8.2) 7.5 G/DL (6.4-8.2) Albumin 3.5 G/DL (3.4-5.0) 3.5 G/DL (3.4-5.0) Globulin 4.3 g/dL 4.0 g/dL Albumin/Globulin Ratio 0.8 (1.0-2.7) L 0.9 (1.0-2.7) L TIERNEY MURO Feb 24, 2017 14:46
[2017-02-24 16:00] VITALS: BP 112/50
--- NOTE | 2017-02-24 18:58 | Cardiac Electrophysiology PN ---
Subjective Subjective EP consult dictated and DW daughter and Dr Cruz. [id number] Plse See my last note 07/2016 Objective Last 24 Hour Vital Signs Date Time Temp Pulse Resp B/P (MAP) Pulse Ox O2 Delivery O2 Flow Rate FiO2 02/24/17 16:00 97.2 56 20 112/50 95 Room Air 02/24/17 16:00 52 02/24/17 14:30 61 104/53 02/24/17 14:20 61 20 104/53 96 Room Air 02/24/17 13:35 56 20 100 Room Air 02/24/17 13:25 57 20 96 Room Air 02/24/17 13:22 57 20 Room Air 02/24/17 12:00 97.7 58 17 90/64 94 Room Air 02/24/17 12:00 52 02/24/17 09:28 120/69 02/24/17 08:15 98.7 58 21 120/69 97 Room Air 58 02/24/17 08:00 57 02/24/17 05:24 98.1 58 18 98 02/24/17 04:57 98.2 73 24 137/62 100 Room Air 02/24/17 01:18 98.2 73 24 137/62 100 Room Air 02/23/17 23:08 98.0 63 22 127/58 97 Room Air 02/23/17 21:10 53 18 Room Air 02/23/17 19:25 98.4 53 18 144/88 95 Room Air Intake and Output 02/24/17 02/25/17 19:00 07:00 Intake Total 600 ml Output Total 1025 ml Balance -425 ml Intake Oral 600 ml Output Urine Total 1025 ml Laboratory Tests Test 02/23/17 21:10 02/23/17 23:33 02/24/17 02:45 White Blood Count 7.9 K/UL (4.8-10.8) Red Blood Count 4.80 M/UL (4.70-6.10) Hemoglobin 13.5 G/DL (14.2-18.0) L Hematocrit 44.8 % (42.0-52.0) Mean Corpuscular Volume 93 FL (80-99) Mean Corpuscular Hemoglobin 28.1 PG (27.0-31.0) Mean Corpuscular Hemoglobin Concent 30.1 G/DL (32.0-36.0) L Red Cell Distribution Width 13.9 % (11.6-14.8) Platelet Count 134 K/UL (150-450) L Mean Platelet Volume 10.0 FL (6.5-10.1) Neutrophils (%) (Auto) 66.2 % (45.0-75.0) Lymphocytes (%) (Auto) 23.0 % (20.0-45.0) Monocytes (%) (Auto) 7.8 % (1.0-10.0) Eosinophils (%) (Auto) 1.5 % (0.0-3.0) Basophils (%) (Auto) 1.5 % (0.0-2.0) Troponin I 0.021 ng/mL (0.000-0.056) Sodium Level 141 MMOL/L (136-145) 138 MMOL/L (136-145) Potassium Level 3.6 MMOL/L (3.5-5.1) 3.4 MMOL/L (3.5-5.1) L Chloride Level 105 MMOL/L (98-107) 102 MMOL/L (98-107) Carbon Dioxide Level 26 MMOL/L (21-32) 32 MMOL/L (21-32) Anion Gap 10 (5-15) 4 (5-15) L Blood Urea Nitrogen 13 mg/dL (7-18) 12 mg/dL (7-18) Creatinine 1.5 MG/DL (0.55-1.30) H 1.4 MG/DL (0.55-1.30) H Estimat Glomerular Filtration Rate mL/min (>60) mL/min (>60) Glucose Level 119 MG/DL (74-106) H 120 MG/DL (74-106) H Calcium Level 8.8 MG/DL (8.5-10.1) 8.7 MG/DL (8.5-10.1) Total Bilirubin 0.8 MG/DL (0.2-1.0) 0.8 MG/DL (0.2-1.0) Aspartate Amino Transf (AST/SGOT) 24 U/L (15-37) 20 U/L (15-37) Alanine Aminotransferase (ALT/SGPT) 14 U/L (12-78) 13 U/L (12-78) Alkaline Phosphatase 88 U/L (46-116) 86 U/L (46-116) Total Creatine Kinase 273 U/L (26-308) 267 U/L (26-308) Creatine Kinase MB 1.6 NG/ML (0.0-3.6) 1.3 NG/ML (0.0-3.6) Creatine Kinase MB Relative Index 0.5 0.4 Pro-B-Type Natriuretic Peptide 133 (0-125) H 142 (0-125) H Total Protein 7.8 G/DL (6.4-8.2) 7.5 G/DL (6.4-8.2) Albumin 3.5 G/DL (3.4-5.0) 3.5 G/DL (3.4-5.0) Globulin 4.3 g/dL 4.0 g/dL Albumin/Globulin Ratio 0.8 (1.0-2.7) L 0.9 (1.0-2.7) L RODGER MEJIA Feb 24, 2017 18:58
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
[2017-02-24 20:00] VITALS: BP 100/59
[2017-02-24] MEDS: Atorvastatin 80mg tab ORAL SCH (20:51)
--- NOTE | 2017-02-24 23:00 | History and Physical Report ---
DATE OF ADMISSION: 02/23/2017 CHIEF COMPLAINT: Dyspnea on exertion. HISTORY OF PRESENT ILLNESS: This is a 72-year-old male with history of chronic obstructive pulmonary disease and congestive heart failure, who has been getting more short of breath for the past week or so. The patient stated that he has more dyspnea on exertion. He was seen on Monday in [place] by another doctor and a chest x-ray was ordered. He was called yesterday to go to the emergency room because the chest x-ray showed heart failure. The patient was seen in the emergency room here and was admitted. The patient states that he is still taking his Lasix 40 mg three times a day. PAST MEDICAL HISTORY: The patient has also history of CABG, history of diabetes, hypertension, hyperlipidemia, and history of CVA. MEDICATIONS: Reviewed in the EMR and reconciled. ALLERGIES: No known drug allergies. SOCIAL HISTORY: No history of smoking or alcohol abuse. The patient lives at home. REVIEW OF SYSTEMS: As above. PHYSICAL EXAMINATION: GENERAL: The patient is a morbidly obese male, feeling better now after he got some Lasix at night. VITAL SIGNS: Blood pressure 144/88, pulse 53, respirations 18, and temperature 98.4 degrees. HEENT: [place] conjunctivae. Anicteric sclerae. NECK: Supple. LUNGS: Clear to auscultation. HEART: S1 and S2 without murmurs or rubs. ABDOMEN: Soft and nontender. EXTREMITIES: Bilateral edema. LABORATORY FINDINGS: The initial chemistry panel shows a serum sodium 141, potassium 3.6, chloride 105, bicarbonate 26, BUN is 13, and creatinine 1.5. Blood sugar is 119 and proBNP was 133. CBC shows a WBC of 7.9, hematocrit is 44.8, hemoglobin is 13.5, and platelets 134,000. ASSESSMENT: This is a 72-year-old male with history of chronic obstructive pulmonary disease and congestive heart failure, who is admitted with congestive heart failure exacerbation and also chronic obstructive pulmonary disease exacerbation. He has significant peripheral edema. His proBNP was not very elevated. At this point, also his lung sounds good. He has renal failure, possibly some chronic kidney disease from nephrosclerosis. PLAN: The patient will be diuresed with IV Lasix. Cardiology consultation will be obtained. He was somewhat bradycardic, so his Coreg is going to be decreased to 12.5 mg twice a day. An echocardiogram will be obtained to assess his LV function. The following merit-based incentive payment system measures were done (MIPS). Measure #1, perform hemoglobin A1c at least once in 2017. This was ordered. Measure #130, I obtained updated review of the patient's current medications including [id number] medications. Measure #318, screen for future fall risk at least once in 2017, the patient is at low fall risk at this point. Measure #374, send report to referring provider. This will be done through EMR. Jose Alberto Cruz M.D. DR: JIMMY JOB#: [id number] CC:
[2017-02-25 00:46] VITALS: BP 111/53
[2017-02-25] MEDS: Albuterol/Ipratropium 3ml neb HHN SCH ×4 (01:35→19:21)
[2017-02-25 04:00] VITALS: BP 110/56
--- NOTE | 2017-02-25 04:45 | Consultation ---
DATE OF CONSULTATION: 02/24/2017 CARDIAC ELECTROPHYSIOLOGY CONSULTATION CONSULTING PHYSICIAN: Dereje Comer M.D. REFERRING PHYSICIAN: Jose Alberto Cruz M.D. REASON FOR CONSULTATION: Evaluation of patient's bradycardia. HISTORY OF PRESENT ILLNESS: The patient is a very pleasant 72-year-old gentleman, whom I am familiar with as I put in a pacemaker for his as well as ablation for his daughter. At the request of patient's daughter as well as Dr. Cruz, cardiac electrophysiology consultation was obtained for further evaluation and management. The patient presented to the emergency room with increasing shortness of breath. The patient already was evaluated by Dr. Mcgowan from a cardiac perspective. Echocardiogram was performed that showed normal left ventricular systolic function with diastolic congestive heart failure. His EKG also showed right bundle-branch block, which is unchanged from July of 2016. PAST MEDICAL HISTORY: Includes: 1. Hypertension. 2. Coronary artery disease with history of coronary artery bypass graft. 3. Nonsustained ventricular tachycardia. 4. History of cardiomyopathy with ejection fraction of 45% to 50%. 5. History of bradycardia as well as right bundle-branch block and left posterior fascicular block. 6. History of respiratory failure, was extubated in 2014. 7. COPD. 8. Renal failure. FAMILY HISTORY: Noncontributory. SOCIAL HISTORY: He lives at home. He does not smoke or drink alcohol. He has a supportive and daughter. REVIEW OF SYSTEMS: Review of systems was performed and was negative other than what was mentioned in history of present illness. PHYSICAL EXAMINATION: VITAL SIGNS: Blood pressure of 112/50, pulse is 65, respirations 18, and he is afebrile. HEAD AND NECK: No JVD. LUNGS: Decreased breath sounds. CARDIOVASCULAR: Regular S1 and S2 with no gallop or murmur. ABDOMEN: Obese. EXTREMITIES: There is 1+ pitting edema. LABORATORY DATA: Labs show white count of 7.9, hemoglobin is 13.5, hematocrit of 44, and platelet count is 134. Sodium 143, potassium 3.4, BUN of 12, creatinine 1.4, and glucose of 120. His urinalysis showed moderate bacteria. ASSESSMENT AND PLAN: 1. Sinus bradycardia. We will hold off on patient's Coreg for now, but we will resume at a lower dose later on when the heart rate improves. On my previous visit with him in July 2016, he also had episodes of bradycardia, but was able to tolerate a low dose of Coreg. 2. Nonsustained ventricular tachycardia. Echocardiogram shows ejection fraction around 50%. Resume low-dose Coreg when the heart rate improves. 3. Shortness of breath due to chronic obstructive pulmonary disease and cardiomyopathy. 4. Right bundle-branch block and left posterior fascicular block. The patient tolerated Coreg 6.25 mg b.i.d. on the previous admission. 5. Respiratory failure, was extubated in 2014. 6. History of renal failure. Thank you very much, Dr. Cruz, for allowing me to participate in the care of this patient. Please do not hesitate to contact me if you have any questions regarding my evaluation. The case was discussed with the patient's daughter as well. Dereje Comer M.D. DR: JARETT JOB#: [id number] CC:
[2017-02-25] MEDS: NovoLOG Insulin Flexpen SUBQ SCH ×4 (06:05→21:19)
[2017-02-25] MEDS: GlipiZIDE 5mg tab ORAL SCH (06:30)
[2017-02-25 07:53] LABS: HEMOGLOBIN A1C 7.1 % (4.3-6.0)
[2017-02-25 08:18] VITALS: BP 130/63
[2017-02-25 09:35] LABS: ALANINE AMINOTRANSFERASE 14 U/L (12-78); ALBUMIN/GLOBULIN RATIO 0.9 (1.0-2.7); ANION GAP 8 (5-15); ASPARTATE AMINO TRANSFERASE 18 U/L (15-37); CALCIUM 8.4 MG/DL (8.5-10.1); CARBON DIOXIDE 29 MMOL/L (21-32); CHLORIDE 101 MMOL/L (98-107); CREATININE 1.4 MG/DL (0.55-1.30); POTASSIUM 3.7 MMOL/L (3.5-5.1); SODIUM 138 MMOL/L (136-145); TOTAL PROTEIN 6.4 G/DL (6.4-8.2)
[2017-02-25] MEDS: Aspirin EC 81mg tab ORAL SCH (09:44)
[2017-02-25] MEDS: Lyrica 75mg cap ORAL SCH ×3 (09:46→18:32)
[2017-02-25] MEDS: Flonase Nasal Inhaler 16gm NASAL SCH ×2 (09:47→18:32)
[2017-02-25 10:23] LABS: BILIRUBIN,DIRECT 0.2 MG/DL (0.0-0.3)
[2017-02-25] MEDS: HYDROmorphone 1mg/ml Carpuject IVP PRN (11:21)
[2017-02-25 11:46] VITALS: BP 133/62
--- NOTE | 2017-02-25 12:00 | General Progress Note ---
Assessment/Plan Problem List: (1) CHF (congestive heart failure) ICD Codes: I50.9 - Heart failure, unspecified SNOMED: 27544898 (2) COPD exacerbation ICD Codes: J44.1 - COPD exacerbation SNOMED: 655870560 (3) Cardiomyopathy ICD Codes: I42.9 - Cardiomyopathy SNOMED: 99121714 (4) ARF (acute renal failure) ICD Codes: N17.9 - ARF (acute renal failure) SNOMED: 80353731 Assessment/Plan cont with diuretics PT follow labs Bronchodilators The following merit-based incentive payment system measures were done (MIPS). Measure #1, perform hemoglobin A1c at least once in 2017. This was ordered. Measure #130, I obtained updated review of the patient's current medications including [id number] medications. Measure #318, screen for future fall risk at least once in 2017, the patient is at low fall risk at this point. Measure #374, send report to referring provider. This will be done through EMR. Subjective Allergies: Coded Allergies: No Known Allergies (Verified Allergy, Unknown, 06/01/07) Subjective feels better Objective Last 24 Hour Vital Signs Date Time Temp Pulse Resp B/P (MAP) Pulse Ox O2 Delivery O2 Flow Rate FiO2 02/25/17 11:46 97.1 52 20 133/62 93 Room Air 02/25/17 08:18 96.3 55 20 130/63 93 Room Air 02/25/17 07:34 44 20 100 Room Air 02/25/17 07:24 48 20 100 Room Air 02/25/17 05:31 54 19 99 Facial 40 02/25/17 04:00 98.1 50 23 110/56 100 Bi-pap 50 02/25/17 04:00 41 02/25/17 03:20 53 16 100 Facial 40 02/25/17 01:42 60 16 100 Room Air 02/25/17 01:35 53 16 98 Facial 50 02/25/17 01:35 56 19 98 Bi-pap 02/25/17 00:46 97.8 69 21 111/53 100 Bi-pap 50 02/25/17 00:00 55 02/24/17 22:45 52 18 99 Facial 50 02/24/17 21:27 67 18 100 Room Air 02/24/17 21:20 67 20 97 Room Air 02/24/17 20:00 97.8 61 20 100/59 95 Room Air 02/24/17 20:00 61 02/24/17 16:00 97.2 56 20 112/50 95 Room Air 02/24/17 16:00 52 02/24/17 14:30 61 104/53 02/24/17 14:20 61 20 104/53 96 Room Air 02/24/17 13:35 56 20 100 Room Air 02/24/17 13:25 57 20 96 Room Air 02/24/17 13:22 57 20 Room Air 02/24/17 12:00 97.7 58 17 90/64 94 Room Air 02/24/17 12:00 52 Intake and Output 02/25/17 02/26/17 19:00 07:00 Intake Total 350 ml Balance 350 ml Intake Oral 350 ml # Voids 1 Laboratory Tests 02/25/17 06:55: Sodium Level 138, Potassium Level 3.7, Chloride Level 101, Carbon Dioxide Level 29, Anion Gap 8, Blood Urea Nitrogen 21H, Creatinine 1.4H, Estimat Glomerular Filtration Rate , Glucose Level 89, Hemoglobin A1c 7.1H, Calcium Level 8.4L, Total Bilirubin 1.1H, Direct Bilirubin 0.2, Aspartate Amino Transf (AST/SGOT) 18 , Alanine Aminotransferase (ALT/SGPT) 14, Alkaline Phosphatase 75, Total Protein 6.4, Albumin 3.1L, Globulin 3.3, Albumin/Globulin Ratio 0.9L, Vitamin D 25-Hydroxy [Pending], 25-Hydroxy Vitamin D2 [Pending], 25-Hydroxy Vitamin D3 [ Pending] Height (Feet): 5 Height (Inches): 7.00 Weight (Pounds): 345 Cardiovascular: normal rate Respiratory/Chest: lungs clear Edema: 1+ Generalized - less PAOLA GONZALES Feb 25, 2017 12:00
--- NOTE | 2017-02-25 14:35 | Cardiac Electrophysiology PN ---
Assessment/Plan Assessment/Plan 1. Sinus bradycardia. Resume low dose Coreg 3.125 bid if HR improves. But hold today as HR was 42! 2. Nonsustained ventricular tachycardia. Echocardiogram shows ejection fraction around 50%. Resume low-dose Coreg when the heart rate improves. 3. Shortness of breath due to chronic obstructive pulmonary disease and cardiomyopathy. 4. Right bundle-branch block and left posterior fascicular block. 5. Respiratory failure, was extubated in 2014. 6. History of renal failure. WINSTON RN Subjective Subjective Feeling better. No chest pain or SOB. Objective Last 24 Hour Vital Signs Date Time Temp Pulse Resp B/P (MAP) Pulse Ox O2 Delivery O2 Flow Rate FiO2 02/25/17 13:39 42 20 100 Room Air 02/25/17 13:29 56 20 95 Room Air 02/25/17 11:46 97.1 52 20 133/62 93 Room Air 02/25/17 08:18 96.3 55 20 130/63 93 Room Air 02/25/17 07:34 44 20 100 Room Air 02/25/17 07:24 48 20 100 Room Air 02/25/17 05:31 54 19 99 Facial 40 02/25/17 04:00 98.1 50 23 110/56 100 Bi-pap 50 02/25/17 04:00 41 02/25/17 03:20 53 16 100 Facial 40 02/25/17 01:42 60 16 100 Room Air 02/25/17 01:35 53 16 98 Facial 50 02/25/17 01:35 56 19 98 Bi-pap 02/25/17 00:46 97.8 69 21 111/53 100 Bi-pap 50 02/25/17 00:00 55 02/24/17 22:45 52 18 99 Facial 50 02/24/17 21:27 67 18 100 Room Air 02/24/17 21:20 67 20 97 Room Air 02/24/17 20:00 97.8 61 20 100/59 95 Room Air 02/24/17 20:00 61 02/24/17 16:00 97.2 56 20 112/50 95 Room Air 02/24/17 16:00 52 Intake and Output 02/25/17 02/26/17 19:00 07:00 Intake Total 600 ml Balance 600 ml Intake Oral 600 ml # Voids 1 Laboratory Tests Test 10/14/17 06:55 Sodium Level 138 MMOL/L (136-145) Potassium Level 3.7 MMOL/L (3.5-5.1) Chloride Level 101 MMOL/L (98-107) Carbon Dioxide Level 29 MMOL/L (21-32) Anion Gap 8 (5-15) Blood Urea Nitrogen 21 mg/dL (7-18) H Creatinine 1.4 MG/DL (0.55-1.30) H Estimat Glomerular Filtration Rate mL/min (>60) Glucose Level 89 MG/DL (74-106) Hemoglobin A1c 7.1 % (4.3-6.0) H Calcium Level 8.4 MG/DL (8.5-10.1) L Total Bilirubin 1.1 MG/DL (0.2-1.0) H Direct Bilirubin 0.2 MG/DL (0.0-0.3) Aspartate Amino Transf (AST/SGOT) 18 U/L (15-37) Alanine Aminotransferase (ALT/SGPT) 14 U/L (12-78) Alkaline Phosphatase 75 U/L (46-116) Total Protein 6.4 G/DL (6.4-8.2) Albumin 3.1 G/DL (3.4-5.0) L Globulin 3.3 g/dL Albumin/Globulin Ratio 0.9 (1.0-2.7) L Vitamin D 25-Hydroxy Pending 25-Hydroxy Vitamin D2 Pending 25-Hydroxy Vitamin D3 Pending Objective HEAD AND NECK: No JVD. LUNGS: Decreased breath sounds. CARDIOVASCULAR: Regular S1 and S2 with no gallop or murmur. ABDOMEN: Obese. EXTREMITIES: There is 1+ pitting edema. RODGER MEJIA Feb 25, 2017 14:35
[2017-02-25 15:25] VITALS: BP 133/59
[2017-02-25 20:00] VITALS: BP 135/62
[2017-02-25] MEDS: Atorvastatin 80mg tab ORAL SCH (21:16)
--- NOTE | 2017-02-25 22:32 | Cardiology Progress Note ---
Assessment/Plan Assessment/Plan the patient had episode of sinus breadycardia, was asymptomatic. off b-blockers , will monitor Subjective Subjective patient feels better less dyspnea no orthopnea Objective Last 24 Hour Vital Signs Date Time Temp Pulse Resp B/P (MAP) Pulse Ox O2 Delivery O2 Flow Rate FiO2 02/25/17 19:30 44 20 100 Room Air 02/25/17 19:20 49 20 95 Room Air 02/25/17 16:00 72 02/25/17 15:25 98.2 54 20 133/59 95 Room Air 02/25/17 13:39 42 20 100 Room Air 02/25/17 13:38 39 02/25/17 13:29 56 20 95 Room Air 02/25/17 12:00 57 02/25/17 11:46 97.1 52 20 133/62 93 Room Air 02/25/17 08:18 96.3 55 20 130/63 93 Room Air 02/25/17 08:00 60 02/25/17 07:34 44 20 100 Room Air 02/25/17 07:24 48 20 100 Room Air 02/25/17 05:31 54 19 99 Facial 40 02/25/17 04:00 98.1 50 23 110/56 100 Bi-pap 50 02/25/17 04:00 41 02/25/17 03:20 53 16 100 Facial 40 02/25/17 01:42 60 16 100 Room Air 02/25/17 01:35 53 16 98 Facial 50 02/25/17 01:35 56 19 98 Bi-pap 02/25/17 00:46 97.8 69 21 111/53 100 Bi-pap 50 02/25/17 00:00 55 02/24/17 22:45 52 18 99 Facial 50 General Appearance: no apparent distress, obese EENT: PERRL/EOMI Neck: non-tender Rhythm: SB Cardiovascular: bradycardia Respiratory/Chest: rhonchi - bilaterally Abdomen: soft Extremities: trace edema Intake and Output 02/25/17 02/26/17 19:00 07:00 Intake Total 960 ml Output Total 800 ml Balance 160 ml Intake Oral 960 ml Output Urine Total 800 ml # Voids 1 # Bowel Movements 1 Laboratory Tests Test 02/25/17 06:55 02/25/17 08:38 Sodium Level 138 MMOL/L (136-145) Potassium Level 3.7 MMOL/L (3.5-5.1) Chloride Level 101 MMOL/L (98-107) Carbon Dioxide Level 29 MMOL/L (21-32) Anion Gap 8 (5-15) Blood Urea Nitrogen 21 mg/dL (7-18) H Creatinine 1.4 MG/DL (0.55-1.30) H Estimat Glomerular Filtration Rate mL/min (>60) Glucose Level 89 MG/DL (74-106) Hemoglobin A1c 7.1 % (4.3-6.0) H Calcium Level 8.4 MG/DL (8.5-10.1) L Total Bilirubin 1.1 MG/DL (0.2-1.0) H Direct Bilirubin 0.2 MG/DL (0.0-0.3) Aspartate Amino Transf (AST/SGOT) 18 U/L (15-37) Alanine Aminotransferase (ALT/SGPT) 14 U/L (12-78) Alkaline Phosphatase 75 U/L (46-116) Total Protein 6.4 G/DL (6.4-8.2) Albumin 3.1 G/DL (3.4-5.0) L Globulin 3.3 g/dL Albumin/Globulin Ratio 0.9 (1.0-2.7) L Vitamin D 25-Hydroxy Pending 25-Hydroxy Vitamin D2 Pending 25-Hydroxy Vitamin D3 Pending Thyroid Stimulating Hormone (TSH) 0.415 uiU/mL (0.360-3.740) NICOLE FLORENCE Feb 25, 2017 22:32
[2017-02-26 00:51] VITALS: BP 137/73
[2017-02-26] MEDS: Albuterol/Ipratropium 3ml neb HHN SCH ×3 (01:00→13:41)
[2017-02-26] MEDS: GlipiZIDE 5mg tab ORAL SCH (06:20)
[2017-02-26] MEDS: NovoLOG Insulin Flexpen SUBQ SCH ×2 (06:26→11:30)
[2017-02-26 08:20] VITALS: BP 122/67
[2017-02-26] MEDS: Aspirin EC 81mg tab ORAL SCH (08:38)
[2017-02-26] MEDS: Lyrica 75mg cap ORAL SCH ×2 (08:39→14:14)
[2017-02-26] MEDS: Flonase Nasal Inhaler 16gm NASAL SCH (08:51)
[2017-02-26 11:33] VITALS: BP 139/61
--- NOTE | 2017-02-26 12:44 | Consultation ---
Consult Note Assessment/Plan DC dictated # [id number] PAOLA GONZALES Feb 26, 2017 12:44
--- NOTE | 2017-02-27 03:30 | Discharge Summary ---
DATE OF ADMISSION: 02/23/2017 DATE OF DISCHARGE: 02/26/2017 CHIEF COMPLAINT: Dyspnea on exertion. HISTORY OF PRESENT ILLNESS: This is a 72-year-old male with history of chronic obstructive pulmonary disease and congestive heart failure, who was admitted with the above symptoms. The patient was diagnosed with congestive heart failure exacerbation. HOSPITAL COURSE: The patient was started on IV Lasix. He was seen by Dr. Phan Mcgowan in cardiology consultation. Dr. Comer saw the patient for EP. The patient's symptoms improved and eventually, he was sent home in stable condition. Note that, he was somewhat bradycardic, so his Coreg was decreased to 12.5 mg twice a day. He did have an echocardiogram, but the result was not available at the time of discharge. The following merit-based incentive payment system measures were done (MIPS). Measure #4, perform hemoglobin A1c at least once in 2017. This was done and was 7.1. Measure #130, I obtained updated review of the patient's current medications including [id number] medications and this was done. Measure #318, screen for future fall risk at least once in 2017. The patient was found to be at low fall risk at the time of discharge. Measure #374, send report to referring provider. This will be done through EMR. Measure #5, PAULETTE inhibitor and ARB therapy prescribed, currently being taken. It is unclear what the ejection fraction was at the time of discharge, an echo was pending, however, the patient is already on PAULETTE inhibitor. Measure #8, beta-farheen was given to the patient (Coreg). The following improvement activities were done on this patient. 1. Provide 05/12 access to eligible clinicians or groups, who have real-time access to the patient's medical record. This was done through EMR. 2. Implementation of use of specialists reports back to referring clinician or group to close referral loop. This was done through EMR as well. Jose Alberto Cruz M.D. DR: JIMMY JOB#: [id number] CC:
--- NOTE | 2017-02-27 09:45 | Cardiology Report ---
APPROVED REPORT EXAM: Two-dimensional and M-mode echocardiogram with Doppler and color Doppler. INDICATION Congestive Heart Failure M-Mode DIMENSIONS IVSd1.9 (0.7-1.1cm)Left Atrium (MM)5.7 (1.6-4.0cm) LVDd5.5 (3.5-5.6cm)Aortic Root3.6 (2.0-3.7cm) PWd1.5 (0.7-1.1cm)Aortic Cusp Exc.2.1 (1.5-2.0cm) LVDs3.5 (2.5-4.0cm) PWs1.7 cm Normal left ventricular chamber size, systolic function and wall motion. Left ventricular ejection fraction estimated to be 55 %. Moderate left ventricular hypertrophy. Anterior Echo-free space, may be due to pericardial fat or effusion. All other cardiac chamber sizes are within normal limits. Mild left atrial enlargement. Right cardiac chamber sizes are within normal limits. Mild focal aortic valve sclerosis with adequate cusp excursion. Mildly thickened mitral valve leaflets with normal excursion. Mild mitral annulus and aortic root calcification. Normal pulmonic valve structure. Normal tricuspid valve structure. IVC dilated at 2.3 cm without physiologic collapse, estimated RAP is 15 mmHg. A color flow and spectral Doppler study was performed and revealed: No aortic regurgitation. Trace mitral regurgitation. Mitral inflow indicates normal left ventricular diastolic function. Mild tricuspid regurgitation. Tricuspid systolic velocities suggests peak right ventricular systolic pressure of 33 mmHg. Trace pulmonic regurgitation present.
--- NOTE | 2017-03-01 23:34 | Diagnostic Imaging Report ---
APPROVED REPORT CPT Code: 68590 Present Symptoms Shortness of breath Comments: CP HTN BILATERAL: Imaging reveals a patent deep venous system bilaterally. There is no evidence of thrombus within the femoral, popliteal or tibial segments. The greater saphenous veins are also within normal limits. Doppler indicates normal spontaneous flow within these segments.
--- NOTE | 2017-03-07 08:40 | Cardiology Report ---
APPROVED REPORT EKG Measurement Heart [id number] Sinus rhythm with occasional premature ventricular complexes and premature atrial complexes Right bundle branch block Abnormal ECG
== END 2017-02-26 14:25 | disposition home health service (06) | DRG 291 ==
LOC: EMR 20:13 → 2W 20:45 → EDBEDREQ 22:42 → 2E 02-25 07:21
DX: I13.0 Hypertensive heart and chronic kidney disease with heart failure and stage 1 through stage 4 chronic kidney disease, or unspecified chronic kidney disease (principal); I50.33 Acute on chronic diastolic (congestive) heart failure; N17.9 Acute kidney failure, unspecified; I47.2 Ventricular tachycardia; E11.22 Type 2 diabetes mellitus with diabetic chronic kidney disease; J44.1 Chronic obstructive pulmonary disease with (acute) exacerbation; F11.20 Opioid dependence, uncomplicated; I69.354 Hemiplegia and hemiparesis following cerebral infarction affecting left non-dominant side; Z68.43 Body mass index [BMI] 50.0-59.9, adult; I45.2 Bifascicular block; E66.01 Morbid (severe) obesity due to excess calories; R00.1 Bradycardia, unspecified; I42.9 Cardiomyopathy, unspecified; N18.9 Chronic kidney disease, unspecified; I25.10 Atherosclerotic heart disease of native coronary artery without angina pectoris; E78.5 Hyperlipidemia, unspecified; G47.30 Sleep apnea, unspecified; Z79.84 Long term (current) use of oral hypoglycemic drugs; Z85.46 Personal history of malignant neoplasm of prostate; Z87.01 Personal history of pneumonia (recurrent); Z95.1 Presence of aortocoronary bypass graft
CPT/HCPCS: 36415; 71010; 80053; 82248; 82306; 82550; 82553; 82962; 83036; 83880; 84443; 84484; 85025; 93005; 93306; 93970; 94640; 94660; 94664; 99285; J1815; J2405; J7620

== ENCOUNTER 2018-05-30 10:19 | Outpatient (CLI) | payer MEDICARE, MEDICAID ==
[~2018-05-30 10:19] MED LIST changes: +ALBUTEROL2.5 MG/3 M INH; +FLUTICASONE PRO16 G1 NASAL; +GUIATUSS AC SY120 ML ORAL; +HYDRALAZINE HCL10 MG ORAL; +POTASSIUM CHLO10 ME3 ORAL; +VITAMIN D1000 UNI1 ORAL
== END 2018-05-30 12:19 | disposition home or self-care (01) ==
LOC: VAS 10:19
DX: I82.402 Acute embolism and thrombosis of unspecified deep veins of left lower extremity (principal)
CPT/HCPCS: 93971

== ENCOUNTER 2018-07-03 12:16 | Inpatient (IN) | payer MEDICARE, MEDICAID ==
[~2018-07-03] VITALS: Ht 170.2 cm; Wt 151.5 kg
[2018-07-03] MEDS ORDERED: UNOBMED (12:33)
[2018-07-03 12:35] VITALS: BP 121/57
--- NOTE | 2018-07-03 12:35 | NUR ---
ED Nurse Note: AMBULATED IN TO ER FROM HOME WITH A CANE DUE TO SOB AND PAINFUL COUGH X 1 WEEK. C/O CHRONIC LOWER BACK PAIN 10/10 X 1YEAR. WITH NC 2L/MIN, O2 SAT OF 99%. NO LABOR BREATHING. A/OX4.
--- NOTE | 2018-07-03 13:14 | Emergency Room Report ---
History of Present Illness General Chief Complaint: Dyspnea/Respdistress Source: Patient Present Illness HPI Patient presents with complaints of shortness of breath Reports that ongoing for the past several days denies any vomiting He has some mild cough increase edema in both legs Patient reports that he is on blood pressure medication And diuretics cannot provide specific names however patient apparently is on a beta-farheen denies any focal weakness The shortness of breath is worse with laying flat and any exertion Allergies: Coded Allergies: No Known Allergies (Verified , 07/03/18) Patient History Past Medical History: see triage record Pertinent Family History: none Reviewed Nursing Documentation: PMH: Agreed; PSxH: Agreed Nursing Documentation-PMH Past Medical History: No History, Except For Hx Cardiac Problems: Yes - high cholesterol, quad bypass 2009 Hx Hypertension: Yes Hx Pacemaker: No Hx Asthma: Yes Hx COPD: Yes Hx Diabetes: Yes Hx Cancer: Yes Hx Gastrointestinal Problems: No Hx Dialysis: No Hx Neurological Problems: No Hx Cerebrovascular Accident: Yes - 2008 Hx Seizures: No Hx Numbness: Yes Review of Systems All Other Systems: negative except mentioned in HPI Physical Exam Vital Signs Date Time Temp Pulse Resp B/P (MAP) Pulse Ox O2 Delivery O2 Flow Rate FiO2 07/03/18 12:29 97.9 52 18 122/57 86 Room Air Sp02 EP Interpretation: reviewed, abnormal - On room air on 3 L nasal cannula patient saturating at 94%, which is normal oxygenation for the patient General Appearance: well appearing, no apparent distress Head: normocephalic, atraumatic Eyes: bilateral eye PERRL, bilateral eye EOMI ENT: hearing grossly normal, normal pharynx, TMs + canals normal, uvula midline Neck: full range of motion, supple, no meningismus, no bony tend Respiratory: no respiratory distress, no retraction, no accessory muscle use, crackles - Bilaterally Cardiovascular #1: no gallop, no JVD, no murmur, bradycardia Gastrointestinal: normal bowel sounds, non tender, soft, no mass, no organomegaly, non-distended, no guarding, no hernia, no pulsatile mass, no rebound Genitourinary: no CVA tenderness Musculoskeletal: other - Patient obese, moving upper extremities equally however significant edema in both lower extremity Neurologic: oriented x3, responsive, 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 as tested, motor strength/ tone normal, sensory intact Psychiatric: mood/affect normal Skin: other - 2 out of 4 pitting edema Lymphatic: normal inspection, no adenopathy Medical Decision Making Diagnostic Impression: Primary Impression: Dyspnea Additional Impressions: Respiratory distress Cardiomyopathy ER Course Patient is a fairly complex patient with multiple differential to consideration including but not limited to cardiac cardiopulmonary and vascular emergencies Patient's imaging reveals cardiomegaly with some bilateral effusions Blood work does not show any obvious acute pathology patient's daughter also requesting drug screen as she feels that the patient Likely did heroin Patient admitted for further care Bradycardia has improved Labs Test 07/03/18 12:21 07/03/18 12:55 Urine Color Yellow Urine Appearance Clear Urine pH 6.5 (4.5-8.0) Urine Specific [place] 1.010 (1.005-1.035) Urine Protein Negative (NEGATIVE) Urine Glucose (UA) Negative (NEGATIVE) Urine Ketones Negative (NEGATIVE) Urine Blood Negative (NEGATIVE) Urine Nitrite Negative (NEGATIVE) Urine Bilirubin Negative (NEGATIVE) Urine Urobilinogen 4 MG/DL (0.0-1.0) Urine Leukocyte Esterase Negative (NEGATIVE) White Blood Count 6.0 K/UL (4.8-10.8) Red Blood Count 4.20 M/UL (4.70-6.10) Hemoglobin 12.5 G/DL (14.2-18.0) Hematocrit 38.6 % (42.0-52.0) Mean Corpuscular Volume 92 FL (80-99) Mean Corpuscular Hemoglobin 29.8 PG (27.0-31.0) Mean Corpuscular Hemoglobin Concent 32.4 G/DL (32.0-36.0) Red Cell Distribution Width 14.6 % (11.6-14.8) Platelet Count 127 K/UL (150-450) Mean Platelet Volume 10.0 FL (6.5-10.1) Neutrophils (%) (Auto) 64.3 % (45.0-75.0) Lymphocytes (%) (Auto) 21.7 % (20.0-45.0) Monocytes (%) (Auto) 10.3 % (1.0-10.0) Eosinophils (%) (Auto) 2.6 % (0.0-3.0) Basophils (%) (Auto) 1.2 % (0.0-2.0) Sodium Level 141 MMOL/L (136-145) Potassium Level 3.9 MMOL/L (3.5-5.1) Chloride Level 102 MMOL/L (98-107) Carbon Dioxide Level 34 MMOL/L (21-32) Anion Gap 5 mmol/L (5-15) Blood Urea Nitrogen 18 mg/dL (7-18) Creatinine 1.4 MG/DL (0.55-1.30) Estimat Glomerular Filtration Rate mL/min (>60) Glucose Level 103 MG/DL (74-106) Lactic Acid Level 0.70 mmol/L (0.4-2.0) Calcium Level 9.2 MG/DL (8.5-10.1) Total Bilirubin 1.3 MG/DL (0.2-1.0) Direct Bilirubin 0.4 MG/DL (0.0-0.3) Aspartate Amino Transf (AST/SGOT) 24 U/L (15-37) Alanine Aminotransferase (ALT/SGPT) 17 U/L (12-78) Alkaline Phosphatase 115 U/L (46-116) Total Creatine Kinase 272 U/L (26-308) Creatine Kinase MB 2.1 NG/ML (0.0-3.6) Creatine Kinase MB Relative Index 0.7 Troponin I 0.013 ng/mL (0.000-0.056) Pro-B-Type Natriuretic Peptide 302 pg/mL (0-125) Total Protein 7.5 G/DL (6.4-8.2) Albumin 3.3 G/DL (3.4-5.0) Globulin 4.2 g/dL Albumin/Globulin Ratio 0.8 (1.0-2.7) Amylase Level 57 U/L (25-115) Lipase 112 U/L (73-393) Rhythm Strip Diag. Results EP Interpretation: yes Rate: 50 Rhythm: no PVC's, no ectopy, other - Sinus bradycardia Chest X-Ray Diagnostic Results Chest X-Ray Diagnostic Results : Chest X-Ray Ordered: Yes # of Views/Limited/Complete: 1 View Indication: Chest Pain EP Interpretation: Yes Interpretation: no consolidation, no pneumothorax, other - Lateral effusion , cardiomegaly Impression: Other - Bilateral effusion cardiomegaly Electronically Signed by: Adebayo Jacobo DO Last Vital Signs Date Time Temp Pulse Resp B/P (MAP) Pulse Ox O2 Delivery O2 Flow Rate FiO2 07/03/18 12:29 97.9 52 18 122/57 86 Room Air Status: improved Disposition: ADMITTED INPATIENT Condition: Serious Adebayo Jacobo DO Jul 03, 2018 13:14
--- NOTE | 2018-07-03 13:28 | NUR ---
ED Nurse Note: BLOOD SEPCIMENS AND URINE SENT DOWN TO THE LAB.
[2018-07-03 13:40] LABS: BASOPHILS % (AUTO) 1.2 % (0.0-2.0); EOSINOPHILS % (AUTO) 2.6 % (0.0-3.0); HEMATOCRIT 38.6 % (42.0-52.0); HEMOGLOBIN 12.5 G/DL (14.2-18.0); LYMPHOCYTES % (AUTO) 21.7 % (20.0-45.0); MEAN CORPUSCULAR VOLUME 92 FL (80-99); MONOCYTES % (AUTO) 10.3 % (1.0-10.0); NEUTROPHILS % (AUTO) 64.3 % (45.0-75.0); PLATELET COUNT 127 K/UL (150-450); RED CELL DISTRIBUTION WIDTH 14.6 % (11.6-14.8)
[2018-07-03 13:47] LABS: APPEARANCE,URINE CLEAR; BILIRUBIN, URINE NEGATIVE (NEGATIVE); GLUCOSE, URINE (UA) NEGATIVE (NEGATIVE); KETONES,URINE NEGATIVE (NEGATIVE); LEUKOCYTE ESTERASE ,URINE NEGATIVE (NEGATIVE); NITRITE,URINE NEGATIVE (NEGATIVE); PH,URINE 6.5 (4.5-8.0); PROTEIN,URINE NEGATIVE (NEGATIVE); UROBILINOGEN,URINE 4 MG/DL (0.0-1.0)
[2018-07-03 13:48] LABS: COLOR,URINE YELLOW
[2018-07-03 13:51] LABS: ANION GAP 5 mmol/L (5-15); BLOOD UREA NITROGEN 18 mg/dL (7-18); CALCIUM 9.2 MG/DL (8.5-10.1); CARBON DIOXIDE 34 MMOL/L (21-32); CHLORIDE 102 MMOL/L (98-107); CREATININE 1.4 MG/DL (0.55-1.30); POTASSIUM 3.9 MMOL/L (3.5-5.1); SODIUM 141 MMOL/L (136-145)
[2018-07-03 14:09] LABS: ALANINE AMINOTRANSFERASE 17 U/L (12-78); ALBUMIN 3.3 G/DL (3.4-5.0); ALBUMIN/GLOBULIN RATIO 0.8 (1.0-2.7); ALKALINE PHOSPHATASE 115 U/L (46-116); AMYLASE 57 U/L (25-115); ASPARTATE AMINO TRANSFERASE 24 U/L (15-37); BILIRUBIN,TOTAL 1.3 MG/DL (0.2-1.0); CKMB 2.1 NG/ML (0.0-3.6); CREATINE KINASE 272 U/L (26-308)
[2018-07-03 14:10] LABS: BILIRUBIN,DIRECT 0.4 MG/DL (0.0-0.3)
--- NOTE | 2018-07-03 14:47 | Diagnostic Imaging Report ---
Indication: Shortness of breath Technique: One view of the chest Comparison: 02/23/2017 Findings: Body habitus limits evaluation. The heart is enlarged. The left hemidiaphragm is obscured. This is probably due to to the abundance of overlying soft tissue, but basilar infiltrate or pleural effusion also possible. Median sternotomy sutures are again demonstrated. Impression: Cardiomegaly No definite acute process; left basilar pleural and parenchymal disease not excludable, however.
[2018-07-03 15:44] VITALS: BP 119/61
--- NOTE | 2018-07-03 16:26 | History & Physical ---
History and Physical History & Physicial HP dictated # [id number] Jose Alberto Cruz MD Jul 03, 2018 16:26
--- NOTE | 2018-07-03 16:30 | NUR ---
ED Nurse Note: pt's daughter took pt's wallet and villaseñor per pt's request.
--- NOTE | 2018-07-03 17:13 | Cardiology Progress Note ---
Assessment/Plan Assessment/Plan [id number] Objective Last 24 Hour Vital Signs Date Time Temp Pulse Resp B/P (MAP) Pulse Ox O2 Delivery O2 Flow Rate FiO2 07/03/18 15:44 44 15 119/61 95 Nasal Cannula 2.0 07/03/18 12:35 97.9 45 14 121/57 99 Nasal Cannula 2.0 07/03/18 12:35 45 14 Nasal Cannula 2.0 07/03/18 12:29 97.9 52 18 122/57 86 Room Air Laboratory Tests Test 07/03/18 12:21 07/03/18 12:55 Urine Color Yellow Urine Appearance Clear Urine pH 6.5 (4.5-8.0) Urine Specific [place] 1.010 (1.005-1.035) Urine Protein Negative (NEGATIVE) Urine Glucose (UA) Negative (NEGATIVE) Urine Ketones Negative (NEGATIVE) Urine Blood Negative (NEGATIVE) Urine Nitrite Negative (NEGATIVE) Urine Bilirubin Negative (NEGATIVE) Urine Urobilinogen 4 MG/DL (0.0-1.0) H Urine Leukocyte Esterase Negative (NEGATIVE) Urine Opiates Screen Positive (NEGATIVE) H Urine Barbiturates Screen Negative (NEGATIVE) Phencyclidine (PCP) Screen Negative (NEGATIVE) Urine Amphetamines Screen Negative (NEGATIVE) Urine Benzodiazepines Screen Negative (NEGATIVE) Urine Cocaine Screen Negative (NEGATIVE) Urine Marijuana (THC) Screen Negative (NEGATIVE) White Blood Count 6.0 K/UL (4.8-10.8) Red Blood Count 4.20 M/UL (4.70-6.10) L Hemoglobin 12.5 G/DL (14.2-18.0) L Hematocrit 38.6 % (42.0-52.0) L Mean Corpuscular Volume 92 FL (80-99) Mean Corpuscular Hemoglobin 29.8 PG (27.0-31.0) Mean Corpuscular Hemoglobin Concent 32.4 G/DL (32.0-36.0) Red Cell Distribution Width 14.6 % (11.6-14.8) Platelet Count 127 K/UL (150-450) L Mean Platelet Volume 10.0 FL (6.5-10.1) Neutrophils (%) (Auto) 64.3 % (45.0-75.0) Lymphocytes (%) (Auto) 21.7 % (20.0-45.0) Monocytes (%) (Auto) 10.3 % (1.0-10.0) H Eosinophils (%) (Auto) 2.6 % (0.0-3.0) Basophils (%) (Auto) 1.2 % (0.0-2.0) Sodium Level 141 MMOL/L (136-145) Potassium Level 3.9 MMOL/L (3.5-5.1) Chloride Level 102 MMOL/L (98-107) Carbon Dioxide Level 34 MMOL/L (21-32) H Anion Gap 5 mmol/L (5-15) Blood Urea Nitrogen 18 mg/dL (7-18) Creatinine 1.4 MG/DL (0.55-1.30) H Estimat Glomerular Filtration Rate mL/min (>60) Glucose Level 103 MG/DL (74-106) Lactic Acid Level 0.70 mmol/L (0.4-2.0) Calcium Level 9.2 MG/DL (8.5-10.1) Total Bilirubin 1.3 MG/DL (0.2-1.0) H Direct Bilirubin 0.4 MG/DL (0.0-0.3) H Aspartate Amino Transf (AST/SGOT) 24 U/L (15-37) Alanine Aminotransferase (ALT/SGPT) 17 U/L (12-78) Alkaline Phosphatase 115 U/L (46-116) Total Creatine Kinase 272 U/L (26-308) Creatine Kinase MB 2.1 NG/ML (0.0-3.6) Creatine Kinase MB Relative Index 0.7 Troponin I 0.013 ng/mL (0.000-0.056) Pro-B-Type Natriuretic Peptide 302 pg/mL (0-125) H Total Protein 7.5 G/DL (6.4-8.2) Albumin 3.3 G/DL (3.4-5.0) L Globulin 4.2 g/dL Albumin/Globulin Ratio 0.8 (1.0-2.7) L Amylase Level 57 U/L (25-115) Lipase 112 U/L (73-393) Microbiology Date/Time Source Procedure Growth Status 07/03/18 12:55 Nasal Nares Influenza Types A,B Antigen (LUDMILA) - Final Complete Phan Mcgowan MD Jul 03, 2018 17:13
[2018-07-03 18:54] VITALS: BP 127/55
--- NOTE | 2018-07-03 18:55 | NUR ---
ED Nurse Note: Telephone report given to SHAYLEE Orellana from 2E. Pt remains stable.
--- NOTE | 2018-07-03 19:19 | NUR ---
HAND-OFF: Report given to SHAYLEE Hylton. No s/s of distress.
--- NOTE | 2018-07-03 20:00 | NUR ---
NURSE NOTES: Report received from Shonda JUNE. Patient is transferred via gurney from ER to Telemetry unit without any incident. Patient is observed in bed, AOx4 and able to make needs known. Patient's vital signs are as follows: BP: 114/58, HR: 54, O2: 96% 2L NC, T: 98.0, and patient denies SOB and CP at this time. IV site is asymptomatic, patent, and intact. Belongings list checked and signed with INBOUND CALL CENTER AGENT. nuclear monitoring technician initiated and patient is SB. Encouraged patient to use call light when in need assistance, patient verbalized understanding. Bed is in lowest position with side rails up x2 and brakes are engaged. Bed alarm is on. Urinal, cane, and call light within reach. Will continue to monitor. Will call primary MD for inpatient orders.
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
[2018-07-03] MEDS ORDERED: Milk of Magnesia 30ml Ud ORAL PRN (21:15)
[2018-07-03] MEDS ORDERED: Albuterol ud Inhalation HHN PRN (21:15)
--- NOTE | 2018-07-03 21:15 | History and Physical Report ---
DATE OF ADMISSION: 07/03/2018 CHIEF COMPLAINT: Shortness of breath. HISTORY OF PRESENT ILLNESS: This is a 73-year-old male with history of COPD and CHF, who was brought in today because the daughter noticed that his breathing was worse. He apparently had some audible rales. The patient was seen in the emergency room and was diagnosed with CHF exacerbation and he is being admitted. PAST MEDICAL HISTORY: Includes history of morbid obesity, sleep apnea, CABG without underlying coronary artery disease, history of diabetes mellitus, hypertension, hyperlipidemia, and CVA. MEDICATIONS: Reviewed in the EMR. SOCIAL HISTORY: According to the daughter, the patient has been using heroin on and off since he was in [place]. He stated that he has been using heroin again recently and he was very worried about it. No history of smoking or alcohol abuse. REVIEW OF SYSTEMS: Noncontributory except as above. PHYSICAL EXAMINATION: VITAL SIGNS: Blood pressure 119/61, pulse 44, temperature 97.9, and respiratory rate 15. HEENT: [place] conjunctivae. Anicteric sclerae. NECK: Supple. LUNGS: Coarse breath sounds. HEART: S1 and S2. Bradycardic. ABDOMEN: Soft and nontender. EXTREMITIES: Bilateral pedal edema. LABORATORY FINDINGS: CBC shows a WBC of 6000, hematocrit is 38.6, hemoglobin is 12.5, and platelets 127,000. Chemistry panel shows serum sodium 141, potassium 3.9, chloride 102, CO2 34, BUN is 18, and creatinine 1.4. The UA is basically negative. ASSESSMENT: This is a 72-year-old male, who was admitted with CHF exacerbation. There may be some component of COPD as well. He has history CAD, status post CABG, history of diabetes and hypertension, and hyperlipidemia. He is also bradycardic. PLAN: The patient will be on monitored bed. He will be diuresed with IV Lasix. Cardiology consultation as well as Pulmonary consultation will be obtained. Labs will be followed. The patient's medication will be adjusted. Jose Alberto Cruz M.D. DR: FILI JOB#: [id number] CC: JERONIMO
--- NOTE | 2018-07-03 22:00 | NUR ---
NURSE NOTES: Patient is awake, alert, oriented. Denies CP and SOB at this time. Patient is eating. SB on monitor. Will continue to monitor.
--- NOTE | 2018-07-03 22:30 | NUR ---
NURSE NOTES: Notified Dr. Cruz regarding elevated d-dimer, no new orders noted.
[2018-07-03] MEDS: Carvedilol 25mg Tab ORAL SCH (22:31)
[2018-07-03] MEDS: Lyrica 75mg cap ORAL SCH (22:35)
[2018-07-03] MEDS: Heparin 5000 units/ml inj SUBQ SCH (22:36)
[2018-07-03] MEDS: Flonase Nasal Inhaler 16gm NASAL SCH (22:37)
[2018-07-04] VITALS: BP 114/58
--- NOTE | 2018-07-04 07:30 | NUR ---
CASE MANAGEMENT:REVIEW 73YR OLD MALE FROM HOME CC; SOB AND PAINFUL COUGH X1 WEEK PMH: CHRONIC LOWER BACK PAIN. BYPASS. COPD. CA. DM SI: RESPIRATORY DISTRESS. CARDIOMYOPATHY 97.9 45 18 122/57 86% ON RA PLT-127 CR+1.4 TBILI+1.3 DBILI+0.4 URINE(+) OPIATES IS: 2L/O2/NC IV LASIX CXR BLOOD CX : TO TELEMETRY PLAN: 2DECHO VENOUS DUPLEX INTERQUAL CRITERIA MET
--- NOTE | 2018-07-04 07:37 | NUR ---
HAND-OFF: Report given to Dania JUNE. Patient is in stable condition. Endorsed plan of care.
--- NOTE | 2018-07-04 07:40 | NUR ---
NURSE NOTES: Report received from Missy Brandt RN.Pt awake,alert sitting up on bed eating breakfast ,noted no resp distress on 2 L NC,denies any c/o chest pain S-Nazario on the monitor,HR 47 /min,pt uses urinal ,skin warm and dry,IV site to LFA intact ,SR up x2 HOB elevated ,bed lock in lowest position ,will continue with plans of care.
[2018-07-04 08:00] VITALS: BP 134/59
[2018-07-04] MEDS: Aspirin EC 81mg tab ORAL SCH (08:52)
[2018-07-04] MEDS: Lisinopril 10mg tab ORAL SCH (08:54)
[2018-07-04] MEDS: Carvedilol 25mg Tab ORAL SCH ×2 (08:54→20:53)
[2018-07-04] MEDS: Heparin 5000 units/ml inj SUBQ SCH ×2 (08:56→20:47)
[2018-07-04] MEDS: Lyrica 75mg cap ORAL SCH ×3 (09:00→18:21)
[2018-07-04] MEDS: Flonase Nasal Inhaler 16gm NASAL SCH ×2 (09:02→18:19)
[2018-07-04 09:12] LABS: BASOPHILS % (AUTO) 0.8 % (0.0-2.0); EOSINOPHILS % (AUTO) 2.3 % (0.0-3.0); HEMATOCRIT 38.4 % (42.0-52.0); HEMOGLOBIN 12.4 G/DL (14.2-18.0); LYMPHOCYTES % (AUTO) 19.6 % (20.0-45.0); MEAN CORPUSCULAR VOLUME 92 FL (80-99); MONOCYTES % (AUTO) 9.2 % (1.0-10.0); NEUTROPHILS % (AUTO) 68.2 % (45.0-75.0); PLATELET COUNT 117 K/UL (150-450); RED BLOOD COUNT 4.16 M/UL (4.70-6.10); RED CELL DISTRIBUTION WIDTH 15.1 % (11.6-14.8); WHITE BLOOD COUNT 5.4 K/UL (4.8-10.8)
[2018-07-04] MEDS: HYDROcodone/Acetamin 10/325 tab ORAL PRN ×2 (09:12→18:26)
[2018-07-04 09:46] LABS: ALANINE AMINOTRANSFERASE 15 U/L (12-78); ALBUMIN 3.1 G/DL (3.4-5.0); ALBUMIN/GLOBULIN RATIO 0.7 (1.0-2.7); ALKALINE PHOSPHATASE 105 U/L (46-116); ANION GAP 4 mmol/L (5-15); ASPARTATE AMINO TRANSFERASE 24 U/L (15-37); BLOOD UREA NITROGEN 16 mg/dL (7-18); CALCIUM 8.3 MG/DL (8.5-10.1); CARBON DIOXIDE 37 MMOL/L (21-32); CHLORIDE 103 MMOL/L (98-107); CHOLESTEROL 108 MG/DL (< 200); CREATININE 1.4 MG/DL (0.55-1.30); HDL CHOLESTEROL 34 MG/DL (40-60); POTASSIUM 3.8 MMOL/L (3.5-5.1); SODIUM 144 MMOL/L (136-145); TRIGLYCERIDES 48 MG/DL (30-150)
[2018-07-04 12:00] VITALS: BP 100/64
--- NOTE | 2018-07-04 13:00 | NUR ---
NURSE NOTES: Pt resting in bed stable,but continue to be on bradycardeic,denies any chesy pain.
--- NOTE | 2018-07-04 15:18 | Cardiology Report ---
APPROVED REPORT EXAM: Two-dimensional and M-mode echocardiogram with Doppler and color Doppler. INDICATION Chest Pain M-Mode DIMENSIONS IVSd1.4 (0.7-1.1cm)Left Atrium (MM)5.5 (1.6-4.0cm) LVDd6.1 (3.5-5.6cm)Aortic Root4.0 (2.0-3.7cm) PWd1.2 (0.7-1.1cm)Aortic Cusp Exc.2.1 (1.5-2.0cm) LVDs5.0 (2.5-4.0cm) PWs1.1 cm Mild left ventricular enlargement. Mild global left ventricular hypokinesis to extent visualized. Left ventricular ejection fraction estimated to be 45-50 %. Mild left ventricular hypertrophy by 2D. No evidence of pericardial effusion. Mild left atrial enlargement. Right atrial size is upper limits of normal. Right ventricular chamber size is within normal limits. Focal aortic valve sclerosis with adequate cusp excursion. Thickened mitral valve leaflets with normal excursion. Mitral annulus and aortic root calcification. Pulmonic valve not well visualized. Normal tricuspid valve structure. IVC dilated at 2.5 cm with slight physiologic collapse suggestive of increased RA pressure. A color flow and spectral Doppler study was performed and revealed: No aortic insufficiency. Trace to mild mitral regurgitation. Normal left ventricular diastolic function. Mild to moderate tricuspid regurgitation. Tricuspid systolic velocities suggests peak right ventricular systolic pressure of 50 mmHg, consistent with moderate pulmonary hypertension.
--- NOTE | 2018-07-04 15:50 | Cardiology Report ---
APPROVED REPORT EKG Measurement Heart [id number] RI 204P [id number] Sinus bradycardia Right bundle branch block Abnormal ECG
--- NOTE | 2018-07-04 16:04 | Cardiology Report ---
APPROVED REPORT EKG Measurement Heart [id number] ME 202P [id number] Sinus bradycardia Right bundle branch block Abnormal ECG
--- NOTE | 2018-07-04 19:02 | NUR ---
HAND-OFF: Report given to Myrna JUNE.
--- NOTE | 2018-07-04 19:33 | General Progress Note ---
Assessment/Plan Problem List: (1) CHF exacerbation ICD Codes: I50.9 - Heart failure, unspecified SNOMED: 14083644 (2) COPD exacerbation ICD Codes: J44.1 - COPD exacerbation SNOMED: 232770255 (3) Osteoarthritis ICD Codes: M19.90 - Unspecified osteoarthritis, unspecified site SNOMED: 538449257 (4) CKD (chronic kidney disease) ICD Codes: N18.9 - Chronic kidney disease, unspecified SNOMED: 199248163 (5) Symptomatic bradycardia ICD Codes: R00.1 - Bradycardia, unspecified SNOMED: 42852786, 350381977 (6) CAD (coronary artery disease) ICD Codes: I25.10 - CAD (coronary artery disease) SNOMED: 73664390 Assessment/Plan IV lasix Bronchodilators follow labs Pulm and cardiology F/U Subjective Allergies: Coded Allergies: No Known Allergies (Verified , 07/03/18) Subjective feels better Objective Last 24 Hour Vital Signs Date Time Temp Pulse Resp B/P (MAP) Pulse Ox O2 Delivery O2 Flow Rate FiO2 07/04/18 15:15 41 07/04/18 12:00 97.7 40 20 100/64 (76) 95 07/04/18 11:42 44 07/04/18 09:27 54 16 96 Nasal Cannula 2.0 28 07/04/18 09:27 Nasal Cannula 2.0 28 07/04/18 09:27 96 Nasal Cannula 2.0 28 07/04/18 09:25 54 16 Nasal Cannula 2.0 28 07/04/18 09:00 Nasal Cannula 2.0 07/04/18 08:54 134/59 07/04/18 08:54 50 134/59 07/04/18 08:00 97.9 50 20 134/59 (84) 100 07/04/18 08:00 47 07/04/18 03:19 45 07/04/18 00:00 98.0 54 25 114/58 (76) 96 07/03/18 23:39 Nasal Cannula 2.0 07/03/18 23:30 57 07/03/18 23:27 Nasal Cannula 2.0 28 07/03/18 23:27 99 Nasal Cannula 2.0 28 07/03/18 22:31 44 07/03/18 19:38 97.9 44 13 127/55 100 Nasal Cannula 2.0 Intake and Output 07/03/18 07/04/18 19:00 07:00 # Voids 1 # Bowel Movements 1 Laboratory Tests 07/04/18 06:27: White Blood Count 5.4, Red Blood Count 4.16L, Hemoglobin 12.4L, Hematocrit 38.4L , Mean Corpuscular Volume 92, Mean Corpuscular Hemoglobin 29.8, Mean Corpuscular Hemoglobin Concent 32.3, Red Cell Distribution Width 15.1H, Platelet Count 117L, Mean Platelet Volume 9.4, Neutrophils (%) (Auto) 68.2, Lymphocytes (%) (Auto) 19.6L, Monocytes (%) (Auto) 9.2, Eosinophils (%) (Auto) 2.3, Basophils (%) (Auto) 0.8, Sodium Level 144, Potassium Level 3.8, Chloride Level 103, Carbon Dioxide Level 37H, Anion Gap 4L, Blood Urea Nitrogen 16, Creatinine 1.4H, Estimat Glomerular Filtration Rate , Glucose Level 98, Hemoglobin A1c 6.3H, Calcium Level 8.3L, Magnesium Level 2.2, Total Bilirubin 1.0, Aspartate Amino Transf (AST/SGOT) 24, Alanine Aminotransferase (ALT/SGPT) 15, Alkaline Phosphatase 105, Total Protein 7.4, Albumin 3.1L, Globulin 4.3, Albumin/Globulin Ratio 0.7L, Triglycerides Level 48, Cholesterol Level 108, LDL Cholesterol 66, HDL Cholesterol 34L, Cholesterol/HDL Ratio 3.2L, Thyroid Stimulating Hormone (TSH) 0.203L Height (Feet): 5 Height (Inches): 7.00 Weight (Pounds): 334 Cardiovascular: normal rate Respiratory/Chest: lungs clear Edema: 2+ Generalized Jose Alberto Cruz MD Jul 04, 2018 19:33
[2018-07-04 20:00] VITALS: BP 112/59
--- NOTE | 2018-07-04 20:16 | Cardiology Progress Note ---
Assessment/Plan Assessment/Plan 1. Dyspnea. 2. Obesity. 3. Chronic obstructive pulmonary disease. 4. History of LV systolic dysfunction, previously. 5. Coronary disease history status post coronary artery bypass grafting. 6. Right bundle-branch conduction defect. 7. History of systemic hypertension. 8. Bradcardia due to meds 8. Decreased tsh ro 2ndary hypothyorid vs primar hyperthyoid tfts diureitc hhn tele reviewed echo noted decrease bb in light of dionna trop neg ekg noted echo noted dvt ppx sq heparin oob Subjective Cardiovascular: Denies: chest pain, lightheadedness Respiratory: Denies: shortness of breath Gastrointestinal/Abdominal: Denies: abdominal pain Objective Last 24 Hour Vital Signs Date Time Temp Pulse Resp B/P (MAP) Pulse Ox O2 Delivery O2 Flow Rate FiO2 07/04/18 15:15 41 07/04/18 12:00 97.7 40 20 100/64 (76) 95 07/04/18 11:42 44 07/04/18 09:27 54 16 96 Nasal Cannula 2.0 28 07/04/18 09:27 Nasal Cannula 2.0 28 07/04/18 09:27 96 Nasal Cannula 2.0 28 07/04/18 09:25 54 16 Nasal Cannula 2.0 28 07/04/18 09:00 Nasal Cannula 2.0 07/04/18 08:54 134/59 07/04/18 08:54 50 134/59 07/04/18 08:00 97.9 50 20 134/59 (84) 100 07/04/18 08:00 47 07/04/18 03:19 45 07/04/18 00:00 98.0 54 25 114/58 (76) 96 07/03/18 23:39 Nasal Cannula 2.0 07/03/18 23:30 57 07/03/18 23:27 Nasal Cannula 2.0 28 07/03/18 23:27 99 Nasal Cannula 2.0 28 07/03/18 22:31 44 General Appearance: no apparent distress, alert Neck: supple Cardiovascular: normal rate, bradycardia Respiratory/Chest: decreased breath sounds Abdomen: normal bowel sounds, non tender, soft Extremities: moderate edema - left leg Intake and Output 07/03/18 07/04/18 19:00 07:00 # Voids 1 # Bowel Movements 1 Laboratory Tests Test 07/04/18 06:27 White Blood Count 5.4 K/UL (4.8-10.8) Red Blood Count 4.16 M/UL (4.70-6.10) L Hemoglobin 12.4 G/DL (14.2-18.0) L Hematocrit 38.4 % (42.0-52.0) L Mean Corpuscular Volume 92 FL (80-99) Mean Corpuscular Hemoglobin 29.8 PG (27.0-31.0) Mean Corpuscular Hemoglobin Concent 32.3 G/DL (32.0-36.0) Red Cell Distribution Width 15.1 % (11.6-14.8) H Platelet Count 117 K/UL (150-450) L Mean Platelet Volume 9.4 FL (6.5-10.1) Neutrophils (%) (Auto) 68.2 % (45.0-75.0) Lymphocytes (%) (Auto) 19.6 % (20.0-45.0) L Monocytes (%) (Auto) 9.2 % (1.0-10.0) Eosinophils (%) (Auto) 2.3 % (0.0-3.0) Basophils (%) (Auto) 0.8 % (0.0-2.0) Sodium Level 144 MMOL/L (136-145) Potassium Level 3.8 MMOL/L (3.5-5.1) Chloride Level 103 MMOL/L (98-107) Carbon Dioxide Level 37 MMOL/L (21-32) H Anion Gap 4 mmol/L (5-15) L Blood Urea Nitrogen 16 mg/dL (7-18) Creatinine 1.4 MG/DL (0.55-1.30) H Estimat Glomerular Filtration Rate mL/min (>60) Glucose Level 98 MG/DL (74-106) Hemoglobin A1c 6.3 % (4.3-6.0) H Calcium Level 8.3 MG/DL (8.5-10.1) L Magnesium Level 2.2 MG/DL (1.8-2.4) Total Bilirubin 1.0 MG/DL (0.2-1.0) Aspartate Amino Transf (AST/SGOT) 24 U/L (15-37) Alanine Aminotransferase (ALT/SGPT) 15 U/L (12-78) Alkaline Phosphatase 105 U/L (46-116) Total Protein 7.4 G/DL (6.4-8.2) Albumin 3.1 G/DL (3.4-5.0) L Globulin 4.3 g/dL Albumin/Globulin Ratio 0.7 (1.0-2.7) L Triglycerides Level 48 MG/DL (30-150) Cholesterol Level 108 MG/DL (< 200) LDL Cholesterol 66 mg/dL (<100) HDL Cholesterol 34 MG/DL (40-60) L Cholesterol/HDL Ratio 3.2 (3.3-4.4) L Thyroid Stimulating Hormone (TSH) 0.203 uiU/mL (0.358-3.740) Microbiology Date/Time Source Procedure Growth Status 07/03/18 12:55 Nasal Nares Influenza Types A,B Antigen (LUDMILA) - Final Complete Phan Mcgowan MD Jul 04, 2018 20:16
[2018-07-04] MEDS: Atorvastatin 80mg tab ORAL SCH (20:46)
[2018-07-05] VITALS: BP 109/51
[2018-07-05 04:00] VITALS: BP 124/68
[2018-07-05] MEDS: HYDROcodone/Acetamin 10/325 tab ORAL PRN ×3 (05:01→21:47)
[2018-07-05 07:09] LABS: BASOPHILS % (AUTO) 0.6 % (0.0-2.0); EOSINOPHILS % (AUTO) 1.8 % (0.0-3.0); HEMATOCRIT 43.1 % (42.0-52.0); HEMOGLOBIN 13.9 G/DL (14.2-18.0); LYMPHOCYTES % (AUTO) 29.2 % (20.0-45.0); MEAN CORPUSCULAR VOLUME 93 FL (80-99); MONOCYTES % (AUTO) 8.3 % (1.0-10.0); NEUTROPHILS % (AUTO) 60.2 % (45.0-75.0); PLATELET COUNT 129 K/UL (150-450); RED BLOOD COUNT 4.62 M/UL (4.70-6.10); RED CELL DISTRIBUTION WIDTH 14.7 % (11.6-14.8); WHITE BLOOD COUNT 6.5 K/UL (4.8-10.8)
--- NOTE | 2018-07-05 07:27 | NUR ---
NURSE NOTES: Report received from SHAYLEE Wilcox. Patient lying in bed comfortably. In 2L NC. Denies any pain or SOB. IV on Left FA and R hand both 20gauge flushed and SL. Bed on lowest position, side rails upx2, brakes engaged. Call light with easy reach.
--- NOTE | 2018-07-05 07:27 | NUR ---
HAND-OFF: Report given to SHAYLEE Laughlin.
[2018-07-05 07:49] LABS: ANION GAP 3 mmol/L (5-15); BLOOD UREA NITROGEN 18 mg/dL (7-18); CALCIUM 8.7 MG/DL (8.5-10.1); CARBON DIOXIDE 40 MMOL/L (21-32); CHLORIDE 100 MMOL/L (98-107); CREATININE 1.6 MG/DL (0.55-1.30); POTASSIUM 4.2 MMOL/L (3.5-5.1); SODIUM 143 MMOL/L (136-145)
[2018-07-05 08:00] VITALS: BP 135/52
[2018-07-05] MEDS: Carvedilol 25mg Tab ORAL SCH ×3 (09:00→21:00)
[2018-07-05] MEDS: Aspirin EC 81mg tab ORAL SCH (09:24)
[2018-07-05] MEDS: Lisinopril 10mg tab ORAL SCH (09:24)
[2018-07-05] MEDS: Lyrica 75mg cap ORAL SCH ×3 (09:25→18:50)
[2018-07-05] MEDS: Flonase Nasal Inhaler 16gm NASAL SCH ×2 (09:26→18:50)
--- NOTE | 2018-07-05 10:20 | NUR ---
NURSE NOTES: Called Dr. Anthony Abrams and left a message regarding Patient's CPAP, platelet level, ACHS if needed. Waiting for a call back.
[2018-07-05 12:00] VITALS: BP 133/58
[2018-07-05] MEDS: Heparin 5000 units/ml inj SUBQ SCH ×2 (13:11→21:37)
--- NOTE | 2018-07-05 13:11 | General Progress Note ---
Assessment/Plan Problem List: (1) CHF exacerbation ICD Codes: I50.9 - Heart failure, unspecified SNOMED: 49033554 (2) COPD exacerbation ICD Codes: J44.1 - COPD exacerbation SNOMED: 290374029 (3) Osteoarthritis ICD Codes: M19.90 - Unspecified osteoarthritis, unspecified site SNOMED: 265222162 (4) CKD (chronic kidney disease) Assessment & Plan: renal function worse ICD Codes: N18.9 - Chronic kidney disease, unspecified SNOMED: 826814032 (5) Symptomatic bradycardia ICD Codes: R00.1 - Bradycardia, unspecified SNOMED: 77688593, 567068071 (6) CAD (coronary artery disease) ICD Codes: I25.10 - CAD (coronary artery disease) SNOMED: 58206714 Assessment/Plan Decrease IV Lasix Bronchodilators follow labs Pulm and cardiology F/U Subjective Allergies: Coded Allergies: No Known Allergies (Verified , 07/03/18) Subjective feels better Objective Last 24 Hour Vital Signs Date Time Temp Pulse Resp B/P (MAP) Pulse Ox O2 Delivery O2 Flow Rate FiO2 07/05/18 09:25 71 20 96 Nasal Cannula 2.0 28 07/05/18 09:24 71 20 96 Nasal Cannula 2.0 28 07/05/18 09:24 132/52 07/05/18 09:24 Nasal Cannula 2.0 28 07/05/18 09:24 96 Nasal Cannula 2.0 28 07/05/18 09:00 Nasal Cannula 2.0 07/05/18 09:00 71 132/52 07/05/18 08:00 98.6 54 20 135/52 (79) 95 07/05/18 08:00 51 07/05/18 04:00 98.1 53 19 124/68 (86) 100 07/05/18 04:00 44 07/05/18 00:00 98.8 56 19 109/51 (70) 97 07/05/18 00:00 45 07/04/18 21:00 Nasal Cannula 2.0 07/04/18 20:53 56 112/59 07/04/18 20:17 45 20 98 Nasal Cannula 2.0 28 07/04/18 20:17 45 20 98 Nasal Cannula 2.0 28 07/04/18 20:17 Nasal Cannula 2.0 28 07/04/18 20:17 98 Nasal Cannula 2.0 28 07/04/18 20:00 98.3 56 19 112/59 (76) 92 07/04/18 20:00 47 07/04/18 15:15 41 Intake and Output 07/04/18 07/05/18 19:00 07:00 Intake Total 360 ml Output Total 1150 ml Balance -790 ml Intake Oral 360 ml Output Urine Total 1150 ml Laboratory Tests 07/05/18 04:50: White Blood Count 6.5, Red Blood Count 4.62L, Hemoglobin 13.9L, Hematocrit 43.1 , Mean Corpuscular Volume 93, Mean Corpuscular Hemoglobin 30.1, Mean Corpuscular Hemoglobin Concent 32.3, Red Cell Distribution Width 14.7, Platelet Count 129L, Mean Platelet Volume 9.4, Neutrophils (%) (Auto) 60.2, Lymphocytes ( %) (Auto) 29.2, Monocytes (%) (Auto) 8.3, Eosinophils (%) (Auto) 1.8, Basophils (%) (Auto) 0.6, Sodium Level 143, Potassium Level 4.2, Chloride Level 100, Carbon Dioxide Level 40H, Anion Gap 3L, Blood Urea Nitrogen 18, Creatinine 1.6H , Estimat Glomerular Filtration Rate , Glucose Level 85, Calcium Level 8.7 Height (Feet): 5 Height (Inches): 7.00 Weight (Pounds): 334 Cardiovascular: normal rate Respiratory/Chest: lungs clear Edema: 1+ Generalized Jose Alberto Cruz MD Jul 05, 2018 13:11
--- NOTE | 2018-07-05 14:00 | NUR ---
NURSE NOTES: Called and left a message to Dr. Cruz's office ([place]) regarding Patient's CPAP. Waiting for a call back.
[2018-07-05 16:00] VITALS: BP 142/53
[2018-07-05] MEDS: NovoLOG Insulin Flexpen SUBQ SCH ×2 (17:31→21:36)
--- NOTE | 2018-07-05 19:10 | NUR ---
HAND-OFF: Report given to SHAYLEE Wilcox. Patient in stable condition. RN to follow up on CPAP for patient.
--- NOTE | 2018-07-05 19:11 | NUR ---
NURSE NOTES: Received report from SHAYLEE Laughlin. Patient in bed awake showing no signs of acute distress. Vital stable. No Sob. Respiration even and non labored on 2L NC. 2 IV site patent and intact. Bed in lowest position. Call light within reach. All needs attended and met. Will continue plan of care.
[2018-07-05 20:00] VITALS: BP 120/53
--- NOTE | 2018-07-05 20:39 | Cardiology Progress Note ---
Assessment/Plan Assessment/Plan 1. Dyspnea. 2. Obesity. 3. Chronic obstructive pulmonary disease. 4. History of LV systolic dysfunction 5. Coronary disease history status post coronary artery bypass grafting. 6. Right bundle-branch conduction defect. 7. History of systemic hypertension. 8. Bradcardia due to meds 8. Decreased tsh ro 2ndary hypothyorid vs primar hyperthyoid 9. renal insuf tfts diureitc decrease dose hhn tele reviewed echo noted decrease bb in light of dionna trop neg ekg noted dvt ppx sq heparin oob hhn Subjective ROS Limited/Unobtainable: Yes Objective Last 24 Hour Vital Signs Date Time Temp Pulse Resp B/P (MAP) Pulse Ox O2 Delivery O2 Flow Rate FiO2 07/05/18 19:39 60 18 97 Nasal Cannula 2.0 28 07/05/18 19:36 Nasal Cannula 2.0 28 07/05/18 19:36 97 Nasal Cannula 2.0 28 07/05/18 19:36 58 18 97 Nasal Cannula 2.0 28 07/05/18 16:00 98.2 51 20 142/53 (82) 98 07/05/18 16:00 44 07/05/18 12:00 40 07/05/18 12:00 98.3 54 20 133/58 (83) 95 07/05/18 09:25 71 20 96 Nasal Cannula 2.0 28 07/05/18 09:24 71 20 96 Nasal Cannula 2.0 28 07/05/18 09:24 132/52 07/05/18 09:24 Nasal Cannula 2.0 28 07/05/18 09:24 96 Nasal Cannula 2.0 28 07/05/18 09:00 Nasal Cannula 2.0 07/05/18 09:00 71 132/52 07/05/18 08:00 98.6 54 20 135/52 (79) 95 07/05/18 08:00 51 07/05/18 04:00 98.1 53 19 124/68 (86) 100 07/05/18 04:00 44 07/05/18 00:00 98.8 56 19 109/51 (70) 97 07/05/18 00:00 45 07/04/18 21:00 Nasal Cannula 2.0 07/04/18 20:53 56 112/59 General Appearance: other - sleeping Cardiovascular: normal rate Respiratory/Chest: lungs clear Abdomen: non tender, soft Extremities: moderate edema Intake and Output 07/04/18 07/05/18 19:00 07:00 Intake Total 360 ml Output Total 1150 ml Balance -790 ml Intake Oral 360 ml Output Urine Total 1150 ml Laboratory Tests Test 07/05/18 04:50 White Blood Count 6.5 K/UL (4.8-10.8) Red Blood Count 4.62 M/UL (4.70-6.10) L Hemoglobin 13.9 G/DL (14.2-18.0) L Hematocrit 43.1 % (42.0-52.0) Mean Corpuscular Volume 93 FL (80-99) Mean Corpuscular Hemoglobin 30.1 PG (27.0-31.0) Mean Corpuscular Hemoglobin Concent 32.3 G/DL (32.0-36.0) Red Cell Distribution Width 14.7 % (11.6-14.8) Platelet Count 129 K/UL (150-450) L Mean Platelet Volume 9.4 FL (6.5-10.1) Neutrophils (%) (Auto) 60.2 % (45.0-75.0) Lymphocytes (%) (Auto) 29.2 % (20.0-45.0) Monocytes (%) (Auto) 8.3 % (1.0-10.0) Eosinophils (%) (Auto) 1.8 % (0.0-3.0) Basophils (%) (Auto) 0.6 % (0.0-2.0) Sodium Level 143 MMOL/L (136-145) Potassium Level 4.2 MMOL/L (3.5-5.1) Chloride Level 100 MMOL/L (98-107) Carbon Dioxide Level 40 MMOL/L (21-32) H Anion Gap 3 mmol/L (5-15) L Blood Urea Nitrogen 18 mg/dL (7-18) Creatinine 1.6 MG/DL (0.55-1.30) H Estimat Glomerular Filtration Rate mL/min (>60) Glucose Level 85 MG/DL (74-106) Calcium Level 8.7 MG/DL (8.5-10.1) Microbiology Date/Time Source Procedure Growth Status 07/03/18 13:10 Blood Blood Culture - Preliminary NO GROWTH AFTER 24 HOURS Resulted 07/03/18 12:55 Blood Blood Culture - Preliminary NO GROWTH AFTER 24 HOURS Resulted 07/03/18 12:55 Nasal Nares Influenza Types A,B Antigen (LUDMILA) - Final Complete Phan Mcgowan MD Jul 05, 2018 20:39
[2018-07-05] MEDS: Atorvastatin 80mg tab ORAL SCH (21:34)
--- NOTE | 2018-07-05 22:00 | NUR ---
NURSE NOTES: Called and left a message to Dr. Cruz regarding Family's request of Cpap/Bipap for patient's sleep apnea. Awaiting call back.
[2018-07-06] VITALS: BP 128/60
[2018-07-06 04:00] VITALS: BP 121/55
[2018-07-06] MEDS: HYDROcodone/Acetamin 10/325 tab ORAL PRN ×2 (06:10→13:16)
[2018-07-06] MEDS: NovoLOG Insulin Flexpen SUBQ SCH ×2 (06:12→13:10)
--- NOTE | 2018-07-06 07:19 | NUR ---
HAND-OFF: Report given to SHAYLEE Laughlin.
--- NOTE | 2018-07-06 07:20 | NUR ---
NURSE NOTES: Report received from SHAYLEE Wilcox. Patient awake, AOx4, in 2L NC, denies any SOB or pain. Patient still SB with HR in high 40s and low 50s (49-52) asymptomatic. Walks to the restroom independently. IV flushed and SL. Bed on lowest position, brakes engaged, side rails upx2. Call light within easy reach.
[2018-07-06 08:00] VITALS: BP 116/51
[2018-07-06 08:30] LABS: ANION GAP 3 mmol/L (5-15); BLOOD UREA NITROGEN 19 mg/dL (7-18); CARBON DIOXIDE 39 MMOL/L (21-32); CHLORIDE 99 MMOL/L (98-107); CREATININE 1.6 MG/DL (0.55-1.30); POTASSIUM 3.9 MMOL/L (3.5-5.1); SODIUM 141 MMOL/L (136-145)
[2018-07-06] MEDS: Carvedilol 25mg Tab ORAL SCH (09:00)
[2018-07-06] MEDS: Flonase Nasal Inhaler 16gm NASAL SCH (09:29)
[2018-07-06] MEDS: Aspirin EC 81mg tab ORAL SCH (09:29)
[2018-07-06] MEDS: Lisinopril 10mg tab ORAL SCH (09:30)
[2018-07-06] MEDS: Lyrica 75mg cap ORAL SCH ×2 (09:31→13:00)
[2018-07-06] MEDS: Heparin 5000 units/ml inj SUBQ SCH (09:33)
[2018-07-06 12:00] VITALS: BP 139/68
--- NOTE | 2018-07-06 12:27 | Discharge Instructions ---
Discharge Instructions Discharge Instructions Follow Up Orders Follow with Dr Mcgowan in [address] Cruz in 1 week For Congestive Heart Failure Reminder Report to your physician any weight gain of 5 pounds or more in one week. Jose Alberto Cruz MD Jul 06, 2018 12:27
--- NOTE | 2018-07-06 12:29 | General Progress Note ---
Assessment/Plan Problem List: (1) CHF exacerbation ICD Codes: I50.9 - Heart failure, unspecified SNOMED: 01425334 (2) COPD exacerbation ICD Codes: J44.1 - COPD exacerbation SNOMED: 895079905 (3) Osteoarthritis ICD Codes: M19.90 - Unspecified osteoarthritis, unspecified site SNOMED: 287103743 (4) CKD (chronic kidney disease) Assessment & Plan: renal function worse ICD Codes: N18.9 - Chronic kidney disease, unspecified SNOMED: 890136222 (5) Symptomatic bradycardia ICD Codes: R00.1 - Bradycardia, unspecified SNOMED: 76935118, 958327138 (6) CAD (coronary artery disease) ICD Codes: I25.10 - CAD (coronary artery disease) SNOMED: 84162724 Assessment/Plan po lasix Discussed with Dr Mcgowan needs stress test as outpatient Dc today Subjective Allergies: Coded Allergies: No Known Allergies (Verified , 07/03/18) Subjective feels better Objective Last 24 Hour Vital Signs Date Time Temp Pulse Resp B/P (MAP) Pulse Ox O2 Delivery O2 Flow Rate FiO2 07/06/18 09:30 116/51 07/06/18 09:00 47 116/51 07/06/18 08:32 49 18 94 Room Air 21 07/06/18 08:30 47 17 98 Nasal Cannula 2.0 28 07/06/18 08:00 50 07/06/18 08:00 97.9 55 20 116/51 (72) 99 07/06/18 07:37 96 Nasal Cannula 2.0 28 07/06/18 07:37 Nasal Cannula 2.0 28 07/06/18 04:00 48 07/06/18 04:00 98.1 57 18 121/55 (77) 99 07/06/18 00:00 97.7 57 18 128/60 (82) 94 07/06/18 00:00 39 07/05/18 22:17 98.2 07/05/18 21:00 Nasal Cannula 2.0 07/05/18 21:00 50 120/53 07/05/18 20:00 98.2 50 18 120/53 (75) 83 07/05/18 20:00 46 07/05/18 19:39 60 18 97 Nasal Cannula 2.0 28 07/05/18 19:36 Nasal Cannula 2.0 28 07/05/18 19:36 97 Nasal Cannula 2.0 28 07/05/18 19:36 58 18 97 Nasal Cannula 2.0 28 07/05/18 16:00 98.2 51 20 142/53 (82) 98 07/05/18 16:00 44 Intake and Output 07/05/18 07/06/18 19:00 07:00 Intake Total 360 ml Output Total 1100 ml Balance -740 ml Intake Oral 360 ml Output Urine Total 1100 ml # Bowel Movements 1 Laboratory Tests 07/06/18 05:55: Sodium Level 141, Potassium Level 3.9, Chloride Level 99, Carbon Dioxide Level 39H, Anion Gap 3L, Blood Urea Nitrogen 19H, Creatinine 1.6H, Estimat Glomerular Filtration Rate , Glucose Level 92, Calcium Level 9.0, Troponin I 0.015, Pro-B- Type Natriuretic Peptide 361H, Free Thyroxine 1.09, Triiodothyronine (T3) Uptake [Pending] Height (Feet): 5 Height (Inches): 7.00 Weight (Pounds): 334 Cardiovascular: normal rate, bradycardia Respiratory/Chest: lungs clear Edema: 1+ Generalized Jose Alberto Cruz MD Jul 06, 2018 12:29
--- NOTE | 2018-07-06 16:50 | NUR ---
NURSE NOTES: Patient's daughter (Ms Green) at bedside. Patient in stable condition. VS stable with HR 54. Patient asymptomatic. IV removed from both sites. Medication and exercise teaching done. Package printed and given to patient. Discharge medications done by Dr. Jose Alberto Norman. Patient to follow up with primary MD within a week. Documentation release form filled by patient, [facility], form filed in patient's folder. Patient's belongings checked with patient and daughter, signed and filed. Patient left floor on a wheelchair, accompanied by daughter and ARIEL Nuno.
--- NOTE | 2018-07-10 07:48 | Discharge Summary ---
Discharge Summary Discharge Summary _ DATE OF ADMISSION: 07/03/2018 DATE OF DISCHARGE: 07/06/2018 DISCHARGED BY: Dr. Cruz REASON FOR ADMISSION: 73 years old male with past medical history of COPD, congestive heart failure, coronary artery disease, status post CABG, diabetes mellitus, hypertension, hyperlipidemia, history of CVA, morbid obesity, sleep apnea, was brought to emergency department due to worsening shortness of breath. Pulse oximetry was 86% on room air. Heart rate was 52. BUN 18 creatinine 1.4. Troponin - 0.013. Pro BNP 302. EKG revealed sinus bradycardia with right bundle branch block. No leukocytosis stable hemoglobin, and hematocrit. Chest x-ray showed cardiomegaly. No definite acute process. Patient was admitted to telemetry floor for further management. CONSULTANTS: trimming press operator Dr. Mcgowan [facility]SE: Patient admitted to telemetry floor. Patient started on diuresis with IV Lasix with close monitoring of renal parameters and electrolytes. Spool Carrier closely follow. Serial troponin were negative. Repeated EKG still showed sinus bradycardia with right bundle branch block, no acute ischemic changes. Patient was ruled out for acute OH. Supplemental oxygen titrated to keep pulse oximetry above 92%. Pulmonary toilet with bronchodilator provided. Venous duplex bilateral lower extremity was negative for acute DVT. Echocardiogram revealed ejection fraction 45-50% with mild global left ventricular hypokinesis and mild left ventricular hypertrophy. No evidence of pericardial effusion. Right ventricular systolic pressure of 50 consistent with moderate pulmonary hypertension Anti-failure medication regimen was optimized by trimming press operator, including beta- farheen, PAULETTE inhibitor and diuretic. Patient was continued antiplatelet therapy with aspirin and statin. Per cardiology, bradycardia was due to the medication. Dose of beta-farheen was decreased in light of bradycardia. Blood sugar was managed with sliding scale of insulin. DVT prophylaxis provided. Patient was mobilized. Renal parameters and electrolytes were closely monitored. Electrolytes corrected as needed. Supportive care provided. Pain management was addressed as needed. Bowel regimen instituted. Shortness of breath improved. Per trimming press operator, patient will need a stress test as an outpatient. Patient was stable for discharge home with home health services. Reinforced compliance with medications. FINAL DIAGNOSES: CHF exacerbation COPD exacerbation Chronic kidney disease Bradycardia due to medication Coronary artery disease with history of CABG Right bundle branch conduction defect Systemic hypertension Left ventricular systolic dysfunction Osteoarthritis Morbid obesity DISCHARGE MEDICATIONS: See Medication Reconciliation list. DISCHARGE INSTRUCTIONS: Patient was discharged home . Follow up with in one week. Follow-up with Dr. Mcgowan/trimming press operator in 2 weeks I have been assigned to dictate discharge summary for this account. I was not involved in the patient's management. Jacqui Thakur NP Jul 10, 2018 07:48
--- NOTE | 2018-07-10 14:41 | Diagnostic Imaging Report ---
APPROVED REPORT CPT Code: 56751 Present Symptoms Comments: BILATERAL LEGS PAIN. BILATERAL: Imaging reveals a patent deep venous system bilaterally. There is no evidence of thrombus within the femoral, popliteal or tibial segments. The greater saphenous veins are also within normal limits. Doppler indicates normal spontaneous flow within these segments.
== END 2018-07-06 16:57 | disposition home or self-care (01) | DRG 191 ==
LOC: EMR 12:45 → EDBEDREQ 13:06 → 2E 14:02 → EDBEDREQ 18:46
DX: J44.1 Chronic obstructive pulmonary disease with (acute) exacerbation (principal); I13.0 Hypertensive heart and chronic kidney disease with heart failure and stage 1 through stage 4 chronic kidney disease, or unspecified chronic kidney disease; N18.9 Chronic kidney disease, unspecified; I50.9 Heart failure, unspecified; I25.10 Atherosclerotic heart disease of native coronary artery without angina pectoris; R00.1 Bradycardia, unspecified; T50.905A Adverse effect of unspecified drugs, medicaments and biological substances, initial encounter; Z95.1 Presence of aortocoronary bypass graft; E78.5 Hyperlipidemia, unspecified; E11.22 Type 2 diabetes mellitus with diabetic chronic kidney disease; I45.10 Unspecified right bundle-branch block; M19.90 Unspecified osteoarthritis, unspecified site; E66.01 Morbid (severe) obesity due to excess calories; G47.30 Sleep apnea, unspecified
CPT/HCPCS: 36415; 71045; 80048; 80053; 80061; 80307; 81003; 82150; 82248; 82550; 82553; 82962; 83036; 83605; 83690; 83735; 83880; 84439; 84443; 84480; 84484; 85025; 85379; 86710; 87040; 93005; 93306; 93970; 94640; 94664; 94760; 96374; 99285; J1815

== ENCOUNTER 2019-01-20 12:58 | Emergency (ER) | payer MEDICAID, MEDICARE ==
[~2019-01-20] VITALS: Ht 157.5 cm; Wt 140.6 kg
[~2019-01-20 12:58] MED LIST changes: +UNOBMED
--- NOTE | 2019-01-20 13:18 | NUR ---
ED Nurse Note: Patient walked in to ER with daughter from home due to worsening Rt lower leg wound. pt aao x4 and ambulatory with a cane. calm and cooperative. skin dry and tough and 2 wounds on Rt lower leg noted with yellow drainage and foul smell. calm and cooperative.
[2019-01-20 13:23] VITALS: BP 120/53
--- NOTE | 2019-01-20 13:26 | NUR ---
ED Nurse Note: ERMD at bedside performing US.
[2019-01-20] MEDS ORDERED: POTASSIUM CHLO10 ME3 ORAL (13:27)
[2019-01-20] MEDS ORDERED: HYDRALAZINE HCL10 MG ORAL (13:27)
[2019-01-20] MEDS ORDERED: BUMETANIDE1 MG ORAL (13:27)
[2019-01-20] MEDS ORDERED: TERAZOSIN HCL1 MG ORAL (13:27)
[2019-01-20] MEDS ORDERED: SILDENAFIL20 MG ORAL (13:27)
--- NOTE | 2019-01-20 13:27 | NUR ---
ED Nurse Note: dry dressing being applied at bedside per ERMD's verbal order.
[2019-01-20] MEDS ORDERED: CEPHALEXIN500 M1 ORAL (13:28)
[2019-01-20] MEDS ORDERED: BACTRIM DS TAB1 EAC1 ORAL (13:28)
--- NOTE | 2019-01-20 13:29 | Emergency Room Report ---
History of Present Illness General Chief Complaint: Skin Rash/Abscess Source: Patient, Family Member, Medical Record Present Illness HPI 74-year-old male presents with discharge from the skin right tib-fib, patient with discoloration, abrasions noted by patient, patient's daughter stated that there was a wound there and for 2 weeks it has been getting worse, patient denies any fevers chills, he endorses a mild ache aggravated by touching the wound, alleviated by not touching it severity is mild patient presents for evaluation Allergies: Coded Allergies: No Known Allergies (Verified , 07/03/18) Patient History Past Medical History: see triage record Reviewed Nursing Documentation: PMH: Agreed; PSxH: Agreed Nursing Documentation-PMH Past Medical History: No History, Except For Hx Cardiac Problems: Yes - high cholesterol, quad bypass 2009 Hx Hypertension: Yes Hx Pacemaker: No Hx Asthma: Yes Hx COPD: Yes Hx Diabetes: Yes Hx Cancer: Yes Hx Gastrointestinal Problems: No Hx Dialysis: No Hx Neurological Problems: No Hx Cerebrovascular Accident: Yes - 2008 Hx Seizures: No Hx Numbness: Yes Review of Systems All Other Systems: negative except mentioned in HPI Physical Exam Vital Signs Date Time Temp Pulse Resp B/P (MAP) Pulse Ox O2 Delivery O2 Flow Rate FiO2 01/20/19 13:03 97.5 46 18 120/53 (75) 95 Room Air General Appearance: well appearing, no apparent distress Head: normocephalic, atraumatic ENT: hearing grossly normal, normal voice Neck: full range of motion, supple Respiratory: no respiratory distress, speaking full sentences Musculoskeletal: other - Lower extremity: Discoloration of the tear aspect of the tibia-fibula, there is a small wound noted, with some discharge, no fluctuance felt, [id number] ultrasound shows cobblestoning underneath Neurologic: alert, normal gait Psychiatric: mood/affect normal Skin: no rash Medical Decision Making Diagnostic Impression: Primary Impression: Cellulitis Qualified Codes: L03.115 - Cellulitis of right lower limb ER Course Patient with cellulitis of the right lower externally, will provide double coverage of antibiotics, history of diabetes, hypertension Counseled daughter about appropriate wound care, not safe to continually soak the wound and hydroperoxide may lead to skin breakdown If patient worsens return to the ED Disposition home with return precautions Last Vital Signs Date Time Temp Pulse Resp B/P (MAP) Pulse Ox O2 Delivery O2 Flow Rate FiO2 01/20/19 13:03 97.5 46 18 120/53 (75) 95 Room Air Disposition: HOME, SELF-CARE Condition: Stable Scripts Cephalexin* (CEPHALEXIN*) 500 Mg Tablet 500 MG ORAL EVERY 6 HOURS, #40 CAP Prov: Faraz Jamison MD 01/20/19 Trimethoprim/Sulfamethoxazole 160/800* (BACTRIM DS TABLET*) 1 Each Tablet 1 TAB ORAL Q12H, #20 TAB 0 Refills Prov: Faraz Jamison MD 01/20/19 Referrals: Jose Alberto Cruz MD [facility] Akhil Valencia [facility]. [facility] Patient Instructions: Cellulitis, [id number], Dressing Change, [id number] Additional Instructions: The patient was provided with discharge instructions, notified to follow-up with a primary care doctor and or specialist in the next 24-48 hours, and to return to the ED if they have worsening of their symptoms. Please note that this report is being documented using [employer] technology. This can lead to erroneous entry secondary to incorrect interpretation by the dictating instrument. Faraz Jamison MD Jan 20, 2019 13:28
[2019-01-20 13:30] VITALS: BP 120/53
--- NOTE | 2019-01-20 13:30 | NUR ---
ER DISCHARGE NOTE: Patient is cleared to be discharged per ERMD, pt is aox4, on room air, with stable vital signs. pt was given dc and prescription instructions, pt was able to verbalize understanding, pt id band removed. pt is able to ambulate with steady gait. pt took all belongings.
== END 2019-01-20 13:35 | disposition home or self-care (01) ==
LOC: EMR 13:10
DX: L03.115 Cellulitis of right lower limb (principal); I10 Essential (primary) hypertension; E78.00 Pure hypercholesterolemia, unspecified; J44.9 Chronic obstructive pulmonary disease, unspecified; E11.9 Type 2 diabetes mellitus without complications; Z86.73 Personal history of transient ischemic attack (TIA), and cerebral infarction without residual deficits; Z85.9 Personal history of malignant neoplasm, unspecified
CPT/HCPCS: 99282

== ENCOUNTER 2019-10-30 14:18 | Emergency (ER) | payer MEDICARE ==
[~2019-10-30] VITALS: Ht 165.1 cm; Wt 145.1 kg
[~2019-10-30 14:18] MED LIST changes: +BACTRIM DS TAB1 EAC1 ORAL; +BUMETANIDE1 MG ORAL; +CEPHALEXIN500 M1 ORAL; +SILDENAFIL20 MG ORAL; +TERAZOSIN HCL1 MG ORAL
[2019-10-30 14:30] VITALS: BP 125/63
[2019-10-30] MEDS ORDERED: Ketorolac 30mg Inj IM ONE (14:45)
[2019-10-30] MEDS ORDERED: Methocarbamol 750mg tab ORAL ONE (14:45)
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
[2019-10-30] MEDS ORDERED: IBUPROFEN600 M1 ORAL (15:59)
[2019-10-30] MEDS ORDERED: LIDODERM700 M1 TOPIC (15:59)
[2019-10-30] MEDS ORDERED: ROBAXIN-500MG ORAL (15:59)
[2019-10-30 16:00] VITALS: BP 125/63
== END 2019-10-30 16:00 | disposition home or self-care (01) ==
LOC: EMR 14:40
DX: S39.012A Strain of muscle, fascia and tendon of lower back, initial encounter (principal); K80.20 Calculus of gallbladder without cholecystitis without obstruction; K40.90 Unilateral inguinal hernia, without obstruction or gangrene, not specified as recurrent; Z86.73 Personal history of transient ischemic attack (TIA), and cerebral infarction without residual deficits; I10 Essential (primary) hypertension; J44.9 Chronic obstructive pulmonary disease, unspecified; V43.52XA Car driver injured in collision with other type car in traffic accident, initial encounter; Y92.410 Unspecified street and highway as the place of occurrence of the external cause; E66.01 Morbid (severe) obesity due to excess calories; Z68.43 Body mass index [BMI] 50.0-59.9, adult
CPT/HCPCS: 71250; 74176; 96372; 99284; J1885